=== PATIENT | male | born 1975 | race Caucasian/White ===

== ENCOUNTER 2016-10-28 18:29 | Emergency (ER) | payer SELFPAY ==
[2016-10-28] MEDS ORDERED: ASPIRIN 81 MG TABLET, CHEWABLE PO ONE (20:14)
[2016-10-28 20:21] LABS: ABSOLUTE BASOPHILS # (AUTO) 0.1 10^3/uL (0.0-0.2); ABSOLUTE EOSINOPHILS # (AUTO) 0.2 10^3/uL (0.0-0.6); ABSOLUTE LYMPHOCYTES (AUTO) 1.3 10^3/uL (0.5-4.7); ABSOLUTE MONOCYTES (AUTO) 0.5 10^3/uL (0.1-1.4); ABSOLUTE NEUT (AUTO) 7.5 10^3/uL (1.7-8.2); BASOPHILS % (AUTO) 0.9 % (0-2); EOSINOPHILS % (AUTO) 2.4 % (0-6); HEMATOCRIT 45.2 % (37.9-51.0); HEMOGLOBIN 15.5 g/dL (13.5-17.0); HGB HCT DIFFERENCE 1.3; LYMPHOCYTES % (AUTO) 13.6 % (13-45); MEAN CORPUSCULAR HEMOGLOBIN 31.4 pg (27.0-33.4); MEAN CORPUSCULAR HGB CONC 34.2 g/dL (32.0-36.0); MEAN CORPUSCULAR VOLUME 92 fl (80-97); MONOCYTES % (AUTO) 5.4 % (3-13); RED BLOOD COUNT 4.93 10^6/uL (4.35-5.55); SEGMENTED NEUTROPHILS % (AUTO) 77.7 % (42-78); WHITE BLOOD COUNT 9.6 10^3/uL (4.0-10.5)
[2016-10-28 20:27] LABS: ALANINE AMINOTRANSFERASE 47 U/L (21-72); ALBUMIN 4.3 g/dL (3.5-5.0); ALKALINE PHOSPHATASE 128 U/L (38-126); ANION GAP 12 (5-19); ASPARTATE AMINO TRANSFERASE 49 U/L (17-59); BILIRUBIN,DIRECT 0.5 mg/dL (0.0-0.4); BILIRUBIN,TOTAL 0.8 mg/dL (0.2-1.3); BLOOD UREA NITROGEN 7 mg/dL (7-20); CALCIUM 9.6 mg/dL (8.4-10.2); CARBON DIOXIDE 24 mmol/L (22-30); CHLORIDE 103 mmol/L (98-107); CREATINE KINASE 273 U/L (55-170); GLUCOSE 127 mg/dL (75-110); POTASSIUM 4.5 mmol/L (3.6-5.0); PROTHROMBIN TIME 12.3 SEC (11.4-15.4); SODIUM 139.1 mmol/L (137-145); TOTAL PROTEIN 7.8 g/dL (6.3-8.2)
[2016-10-28 20:39] LABS: CREATINE KINASE MB 3.03 ng/mL (<4.55)
--- NOTE | 2016-10-28 20:39 | RADIOLOGY REPORT (SQ) ---
EXAM DESCRIPTION: CHEST SINGLE VIEW COMPLETED DATE/TIME: 10/28/2016 8:28 pm REASON FOR STUDY: chest pain COMPARISON: 10/30/2006 EXAM PARAMETERS: NUMBER OF VIEWS: One view. TECHNIQUE: Single frontal radiographic view of the chest acquired. RADIATION DOSE: NA LIMITATIONS: None. FINDINGS: LUNGS AND PLEURA: No opacities, masses or pneumothorax. No pleural effusion. MEDIASTINUM AND HILAR STRUCTURES: No masses. Contour normal. HEART AND VASCULAR STRUCTURES: Heart normal in size. Normal vasculature. BONES: No acute findings. HARDWARE: None in the chest. OTHER: No other significant finding. IMPRESSION: NO ACUTE RADIOGRAPHIC FINDING IN THE CHEST. TECHNICAL DOCUMENTATION: JOB ID: [id number]
[2016-10-28 20:40] LABS: TROPONIN I < 0.012 ng/mL
[2016-10-28] MEDS ORDERED: KETOROLAC TROMETHAMINE INJ/PF 30 MG/1 ML SDV IV ONE (20:43)
[2016-10-28] MEDS ORDERED: ONDANSETRON HCL INJ/PF 4 MG/2 ML SDV IV ONE (20:44)
--- NOTE | 2016-10-28 20:45 | ER Document Report ---
ED Medical Screen (RME) - General Chief Complaint: Chest Pain Stated Complaint: ABDOMINAL PAIN Time Seen by Provider: 10/28/16 20:32 TRAVEL OUTSIDE OF THE U.S. IN LAST 30 DAYS: No - Related Data Allergies/Adverse Reactions: No Known Allergies Allergy (Verified 02/03/15 20:52) Past Medical History Past Surgical History: Reports: Hx Tonsillectomy Physical Exam - Vital signs Vitals: Pulse Resp BP 102 H 15 154/97 H 10/28/16 18:35 10/28/16 18:35 10/28/16 18:35 Course - Vital Signs Vital signs: Temp Pulse Resp BP Pulse Ox 102 H 12 148/88 H 99 10/28/16 18:35 10/28/16 20:01 10/28/16 20:01 10/28/16 20:01 - Laboratory Result Diagrams: 10/28/16 18:44 10/28/16 18:44 Laboratory results interpreted by me: 10/28/16 18:44 Glucose 127 H Direct Bilirubin 0.5 H Alkaline Phosphatase 128 H Creatine Kinase 273 H
--- NOTE | 2016-10-28 20:51 | ER Document Report ---
ED General - General Chief Complaint: Chest Pain Stated Complaint: ABDOMINAL PAIN Time Seen by Provider: 10/28/16 20:32 Notes: Patient says that he has been having pain in his left upper quadrant for the past 2-3 months. It periodically gets worse and it appears to patient that it is swollen. For the past couple of days, he is been having that pain. In addition, he has had some anterior chest pains that radiate down his left arm. He says he has had dry heaves. No diarrhea. Last bowel movement was last night. No blood seen. Denies any fevers. Has not had any abdominal surgeries. On no prescription medications. TRAVEL OUTSIDE OF THE [place] IN LAST 30 DAYS: No - Related Data Allergies/Adverse Reactions: No Known Allergies Allergy (Verified 02/03/15 20:52) Past Medical History - Social History Smoking Status: Current Every Day Smoker - Smokes about a pack of cigarettes a week. Frequency of alcohol use: Occasional Occupation: [employer] Family History: Reviewed & Not Pertinent - Past Medical History Cardiac Medical History: Denies: Hx Coronary Artery Disease, Hx Heart Attack Past Surgical History: Reports: Hx Tonsillectomy. Denies: Hx Abdominal Surgery Review of Systems - Review of Systems Notes: REVIEW OF SYSTEMS: CONSTITUTIONAL : Denies fever. EENT: Denies eye, ear, nose or mouth or throat pain or other symptoms. CARDIOVASCULAR: See HPI. RESPIRATORY: Denies cough, chest congestion, or shortness of breath. GASTROINTESTINAL: See HPI. GENITOURINARY: Denies difficulty or painful urinating, urinary frequency, blood in urine. MUSCULOSKELETAL: Denies back or neck pain. Denies joint pain or swelling. SKIN: Denies rash or skin lesions. NEUROLOGICAL: Denies LOC or altered mental status. Denies headache. Denies sensory loss or motor deficits. ALL OTHER SYSTEMS REVIEWED AND NEGATIVE. Physical Exam - Vital signs Vitals: Pulse Resp BP 102 H 15 154/97 H 10/28/16 18:35 10/28/16 18:35 10/28/16 18:35 - Notes Notes: PHYSICAL EXAMINATION: GENERAL: Well-appearing, in no acute distress, although he appears uncomfortable. Weighs approximately 340 pounds. HEAD: Atraumatic, normocephalic. EYES: Pupils equal round and reactive to light, extraocular movements intact. ENT: oropharynx clear without exudates. Moist mucous membranes. NECK: Normal range of motion, supple. LUNGS: Breath sounds clear and equal bilaterally. HEART: Regular rate and rhythm without murmurs. ABDOMEN: Morbidly obese with an extremely large abdomen. Patient says he swollen in the left upper quadrant, but I cannot visualize nor do I feel any swelling. He is exquisitely tender, however, in the left upper quadrant. Some guarding present, but no rebound. No masses felt. No bruits heard. BACK: No tenderness throughout entire back. EXTREMITIES: Normal range of motion without pain. NEUROLOGICAL: Normal speech, normal gait. Normal sensory, motor, and reflex exams. Awake, alert, and oriented x3. Cranial nerves normal. PSYCH: Normal mood, normal affect. SKIN: Warm, dry, no rashes. Course - Re-evaluation Re-evalutation: 10/28/16 23:46 Lab results all essentially normal. CT scan of the abdomen with oral and IV contrast show no abnormality except for a fatty liver. I discussed all these results with the patient and he says he just does not understand why he is having such pain. Denies being under stress or anxious or nervous or worried about anything. In spite of this, the patient has normal white cell count, normal chemistries and liver function studies, except for very minimal elevation of the alkaline phosphatase level. CT scan normal except for fatty liver. I pointed out to the patient that the fatty liver is due to his diet and his weight and he says that he does not eat very much and he cannot lose weight even though he has tried he cannot lose weight. We will put the patient on a trial of Bentyl 40 mg, 4 times a day as needed. Advised to return if his symptoms worsen or change or he develops serious new symptoms. - Vital Signs Vital signs: Temp Pulse Resp BP Pulse Ox 102 H 14 144/88 H 97 10/28/16 18:35 10/28/16 23:01 10/28/16 23:01 10/28/16 23:01 - Laboratory Result Diagrams: 10/28/16 18:44 10/28/16 18:44 Laboratory results interpreted by me: 10/28/16 18:44 Glucose 127 H Direct Bilirubin 0.5 H Alkaline Phosphatase 128 H Creatine Kinase 273 H - EKG Interpretation by Ma EKG shows normal: Sinus rhythm Rate: Normal Rhythm: NSR Additional EKG results interpreted by me: 10/28/16 20:52 EKG is normal. Discharge - Discharge Clinical Impression: Abdominal pain Qualifiers: Abdominal location: left upper quadrant Qualified Code(s): R10.12 - Left upper quadrant pain Condition: Stable Disposition: HOME, SELF-CARE Additional Instructions: ABDOMINAL PAIN: There are many causes of abdominal pain. Pain can mean a serious problem requiring surgery (such as appendicitis). It can also be an innocent problem that goes away on its own (such as a viral infection). Often, time must pass to determine the cause of pain. The physician does not feel that hospitalization is necessary, at present. Things may change within the next 24 hours. Call the doctor or come back for re- examination if any problems occur, such as: (1) Pain that becomes more severe, steady, or becomes concentrated in one specific area. Also, pain that is more severe with movement or coughing. (2) Vomiting that persists or becomes more frequent. (3) Blood in the vomitus, urine, or bowel movements. Blood in the stool may have a tarry or black appearance. (4) Shaking chills or fever greater than 100 degrees F. (5) The abdomen becomes more distended or swollen. (6) Bowel movements cease. (7) Failure to improve as expected. NORMAL EXAM AND WORKUP: At this time, your examination and workup show no significant abnormality. No significant abnormal physical findings are noted. All laboratory, EKG, and imaging (x-ray, CT scans, ultrasound) studies that were ordered show no significant abnormality. Although your examination and all studies that were ordered showed no significant abnormal finding, there are no examinations and no studies that are 100% accurate. There is always the possibility that some abnormality could exist and not be detected with physical examination or within the limits and capabilities of laboratory and other studies. You should return or follow up as you were instructed on your visit today for further evaluation if your symptoms do not resolve. TORADOL INJECTION: You have been given an injection of ketorolac tromethamine (Toradol). This is an excellent, safe drug for pain control. It also has potent antiinflammatory action. You should have significant pain relief within about one hour. Toradol is not addicting and is non-sedating. It does not interfere with driving or work. Call or return if you develop itching, hives, shortness of breath, or rash. ANTINAUSEA MEDICATION: You have been given a medication to suppress nausea and vomiting. This type of medication can be given as a shot, pill, or suppository. It will usually last for many hours. Pills and shots usually last six to eight hours, suppositories last about 12 hours. For the typical illness, only one or two doses of the medication may be necessary. Mild lightheadedness may occur. This type of medicine can cause drowsiness. Do not drive or operate dangerous machinery while under its influence. Do not mix with alcohol. See your doctor at once if you have muscle spasms or tightness, or uncontrollable motions (particularly of the neck, mouth, or jaw). Persistent vomiting or severe lightheadedness should also be evaluated by the physician. ANTISPASMODICS: You have been given a prescription for an antispasmodic medicine. This type of drug is used to decrease cramping and pain in the intestines. It is also used to decrease secretion of internal fluids (such as stomach acid in ulcer disease or pancreatic juice in pancreas disease). This medicine may cause drowsiness, especially with the first dose. Do not operate machinery or drive until all side effects have resolved. Do not combine with alcohol. Other common side effects include dry mouth and eyes. In older persons, antispasmodics can occasionally cause urinary retention, constipation, or trouble focusing the eyes. Glaucoma may be worsened by this medicine. FOLLOW-UP CARE: If you have been referred to a physician for follow-up care, call the physician s office for an appointment as you were instructed or within the next two days. If you experience worsening or a significant change in your symptoms, notify the physician immediately or return to the Emergency Department at any time for re-evaluation. Prescriptions: Dicyclomine HCl [Bentyl 20 mg Tablet] 40 mg PO QIDP PRN #60 tablet PRN Reason: Promethazine HCl [Phenergan 25 mg Tablet] 1 - 2 tab PO Q6H PRN #15 tablet PRN Reason: Forms: Return to Work
--- NOTE | 2016-10-28 23:29 | RADIOLOGY REPORT (SQ) ---
EXAM DESCRIPTION: CT ABD/PELVIS WITH IV ORAL COMPLETED DATE/TIME: 10/28/2016 11:20 pm REASON FOR STUDY: LUQ abdominal pain COMPARISON: None. TECHNIQUE: CT scan of the abdomen and pelvis performed using helical scanning technique with dynamic intravenous contrast injection. oral contrast. Images reviewed with lung, soft tissue, and bone wi ndows. Reconstructed coronal and sagittal MPR images reviewed. Delayed images for evaluation of the u rinary system also acquired. All images stored on PACS. All CT scanners at this facility use dose modulation, iterative reconstruction, and/or weight based d osing when appropriate to reduce radiation dose to as low as reasonably achievable (ALARA). [facility]: Dose Right [facility]: CareDose [facility]: Dose Right [facility]: Teradose 4D [facility]: BugSense CONTRAST TYPE AND DOSE: contrast/concentration: Isovue 370.00 mg/ml; Total Contrast Delivered: 100.0 ml; Total Saline Delivered: 70.0 ml RENAL FUNCTION: GFR > 60. RADIATION DOSE: . LIMITATIONS: None. FINDINGS: LOWER CHEST: No significant findings. No nodules or infiltrates. LIVER: Fatty liver. No focal masses. SPLEEN: Normal size. No focal lesions. PANCREAS: No masses. No significant calcifications. No adjacent inflammation or peripancreatic fluid collections. Pancreatic duct not dilated. GALLBLADDER: No identified stones by CT criteria. No inflammatory changes to suggest cholecystitis. ADRENAL GLANDS: No significant masses or asymmetry. RIGHT KIDNEY AND URETER: No solid masses. No significant calcifications. No hydronephrosis or hyd roureter. LEFT KIDNEY AND URETER: No solid masses. No significant calcifications. No hydronephrosis or hydr oureter. AORTA AND VESSELS: No aneurysm. No dissection. Renal arteries, SMA, celiac without stenosis. RETROPERITONEUM: No retroperitoneal adenopathy, hemorrhage or masses. BOWEL AND PERITONEAL CAVITY: No masses or inflammatory changes. No free fluid or peritoneal masses. APPENDIX: Not visualized. PELVIS: No mass. No free fluid. Normal bladder. ABDOMINAL WALL: No masses. No hernias. BONES: No significant or acute findings. OTHER: No other significant finding. IMPRESSION: Fatty liver. No acute findings. TECHNICAL DOCUMENTATION: JOB ID: [id number] Quality ID # [id number]: Final reports with documentation of one or more dose reduction techniques (e.g., Au tomated exposure control, adjustment of the mA and/or kV according to patient size, use of iterative reconstruction technique) 2010 [employer]- All Rights Reserved
[2016-10-28] MEDS ORDERED: DICYCLOMINE HCL 20 MG TABLET PO ONE (23:44)
[2016-10-29 00:03] VITALS: BP 146/88
--- NOTE | 2016-10-29 16:39 | EKG REPORT ---
SEVERITY:- NORMAL ECG - SINUS RHYTHM : Confirmed by: Charlie Odom 29-Oct-2016 16:37:59
== END 2016-10-29 00:04 | disposition home or self-care (01) ==
LOC: ER 18:29
DX: R10.12 Left upper quadrant pain (principal); R07.9 Chest pain, unspecified; M79.602 Pain in left arm; F17.210 Nicotine dependence, cigarettes, uncomplicated
CPT/HCPCS: 93005; 99285; 96374; 96375; 36415; 82553; 82550; 85025; 85610; 80053; 84484; 71010; 74177; 93010; J3490; J1885; J2405

== ENCOUNTER 2016-12-22 14:12 | Emergency (ER) | payer SELFPAY ==
[2016-12-22 14:23] VITALS: BP 174/98
[2016-12-22] MEDS ORDERED: NORMAL SALINE 1000 ML 1,000 ML IV ONE (14:36)
--- NOTE | 2016-12-22 14:36 | ER Document Report ---
ED General - General Chief Complaint: Jaw Pain Stated Complaint: MOUTH PAIN Time Seen by Provider: 12/22/16 14:28 Mode of Arrival: Ambulatory Information source: Patient Notes: Patient is a 41 year old male who presents with 2 week history of left upper jaw pain that has progressively gotten worse. He states that he has been on 2 different antibiotics (penicillin for 7 days and he is currently on day 9 of 10 clindamycin prescribed by his dentist) but he states he is feeling worse today. He states today he had hot flashes, nausea with no vomiting, lightheadedness. He states earlier this afternoon he passed out due to the pain. He believes the infection is still there. Denies any subjective fevers, facial swelling, facial redness, difficulty swallowing, difficulty breathing, vomiting or diarrhea. He states the dentist won't pull his broken tooth until the infection is cleared. TRAVEL OUTSIDE OF THE [place] IN LAST 30 DAYS: No - Related Data Allergies/Adverse Reactions: No Known Allergies Allergy (Verified 02/03/15 20:52) Past Medical History - General Information source: Patient - Social History Smoking Status: Current Every Day Smoker Family History: Reviewed & Not Pertinent - Past Medical History Cardiac Medical History: Denies: Hx Coronary Artery Disease, Hx Heart Attack Renal/ Medical History: Denies: Hx Peritoneal Dialysis Past Surgical History: Reports: Hx Tonsillectomy. Denies: Hx Abdominal Surgery Review of Systems - Review of Systems Constitutional: See HPI EENT: See HPI Cardiovascular: No symptoms reported Respiratory: No symptoms reported Gastrointestinal: No symptoms reported Genitourinary: No symptoms reported Male Genitourinary: No symptoms reported Musculoskeletal: No symptoms reported Skin: No symptoms reported Hematologic/Lymphatic: No symptoms reported Neurological/Psychological: No symptoms reported Physical Exam - Vital signs Vitals: Pulse BP Pulse Ox 84 174/98 H 98 12/22/16 14:22 12/22/16 14:22 12/22/16 14:22 Interpretation: Hypertensive - Notes Notes: PHYSICAL EXAM: CONSTITUTIONAL: Alert and oriented, well-appearing and in no acute distress. Appears uncomfortable. HENT: Normocephalic, atraumatic. No facial cellulitis or swelling. Oropharynx clear without erythema, tonsilar exudate or malocclusion. Trachea midline. Uvula midline. Moist mucous membranes. Edentulous at tooth #14 without obvious perigingival or perioral abscess. No gingival or buccal mucosal swelling. EYES: Pupils equal round and reactive to light, EOM intact. Sclera anicteric, conjunctiva are normal. No entrapment. NECK: supple without lymphadenopathy. No midline tenderness or paraspinous muscle spasms. No step-offs or deformities. ROM intact. HEART: Regular rate and rhythm without murmurs. LUNGS: CTAB and equal. No wheezes, rales or rhonchi. GI: Normactive bowel sounds. Nontender, non-distended. No organomegaly. no CVAT. EXTREMITIES: Normal range of motion, no pitting edema. No cyanosis. Cap Refill < 3 seconds. NEURO: Cranial nerves grossly intact. Normal sensory/motor exams. PSYCH: Normal mood, normal affect. SKIN: Warm and dry. Normal turgor. No rashes or lesions noted. Course - Re-evaluation Re-evalutation: 12/22/16 14:30 Patient seen and examined. No evidence of facial cellulitis/swelling, no perioral abscess or perigingival abscess. Will check labs and give fluids as well as IV pain medication. 12/22/16 15:43 Reviewed CBC which was unremarkable. Patient feeling slightly better after IVF. Advised that the pain is coming from the decay not necessarily infection. Will start augmentin for better coverage and advised patient must follow-up with the dentist. At this time, will discharge with return precautions and follow-up recommendations. Verbal discharge instructions given at the bedside and opportunity for questions given. Medication warnings reviewed. Patient is in agreement with this plan and has verbalized understanding of return precautions and the need for primary care follow-up in the next 24-72 hours. - Vital Signs Vital signs: Temp Pulse Resp BP Pulse Ox 84 174/98 H 98 12/22/16 14:22 12/22/16 14:22 12/22/16 14:22 - Laboratory Result Diagrams: 12/22/16 14:48 Laboratory results interpreted by me: 12/22/16 14:48 Lymphocytes % 11.9 L Discharge - Discharge Clinical Impression: Dental decay, Toothache Condition: Stable Disposition: HOME, SELF-CARE Additional Instructions: TOOTHACHE: Your pain is due to dental decay. The tooth must be repaired in order for you to feel better. You will, therefore, be referred to a dentist. We do not have dentists on the staff at [facility]. Severe swelling or drainage around a tooth usually means a dental abscess. This also requires evaluation and treatment by the dentist, but antibiotics may be prescribed while awaiting dental treatment. You should be rechecked immediately if you develop major swelling of the face, increasing pain, a lump in the jaw or gums, headache, difficulty swallowing, or fever. ORAL NARCOTIC MEDICATION: You have been given a prescription for pain control. This medication is a narcotic. It's best taken with food, as nausea can result if taken on an empty stomach. Don't operate machinery or drive within six hours of taking this medication. Do not combine this medicine with alcohol, or with any medication which can cause sedation (such as cold tablets or sleeping pills) unless you get permission from the physician. Narcotics tend to cause constipation. If possible, drink plenty of fluids and eat a diet high in fiber and fruits. Please be aware that prescription narcotics also have the potential for abuse. People become addicted to these medications because of the general sense of wellbeing that they induce. This feeling along with a significant reduction in tension, anxiety, and aggression provides a stimulating seductive quality to these drugs. Once your pain is under control, we encourage you to discard your unused narcotics. FOLLOW-UP CARE: You have been referred for follow-up care to the dentists listed below. Call the dentists office for an appointment as you were instructed or within the next two days. If you experience worsening or a significant change in your symptoms, notify the physician immediately or return to the Emergency Department at any time for re-evaluation. [facility] [address], [place] Monday mornings, by appointment [facility] [address] [place] [address] [facility] [address] [facility] [address] [facility] [address] [facility] [address] [facility] [facility]. [email or web address] [facility] [address] [place] [address] Monday- 8:00am to 5:00 pm Will see patients from other [facility]. Charges based on income and family size and accepts Medicare, Medicaid, and Insurances Will pull molars [facility], [facility]. [id number] Hours of Operation 8:00 am - 4:30 pm weekdays The following dental offices accept Medicaid: [facility] [address]. [address] Dr[address] Riley Dr. Yeager Dr. Khanna Stefan White, Anant, and Richi oral surgery Dr. Thrasher ([place]) Dr. Rosario ([place]) [facility] Drs. Manjarrez ([place]) Dr. Acevedo ([place]) [facility] Dr. Garcia ([place]) Drs. Cantu and ([place]) Medicaid Care Line Prescriptions: Amox Tr/Potassium Clavulanate [Augmentin 875-125 Tablet] 1 tab PO BID 10 Days tablet Hydrocodone/Acetaminophen [Vicodin 5-300 mg Tablet] 1 tab PO ASDIR PRN #15 tab PRN Reason: Forms: Elevated Blood Pressure
[2016-12-22] MEDS ORDERED: KETOROLAC TROMETHAMINE INJ/PF 30 MG/1 ML SDV IV ONE (14:37)
[2016-12-22] MEDS ORDERED: LIDOCAINE 2% URO-JET 5 ML KIT MM ONE (14:38)
[2016-12-22 15:00] LABS: ABSOLUTE BASOPHILS # (AUTO) 0.1 10^3/uL (0.0-0.2); ABSOLUTE EOSINOPHILS # (AUTO) 0.2 10^3/uL (0.0-0.6); ABSOLUTE MONOCYTES (AUTO) 0.6 10^3/uL (0.1-1.4); ABSOLUTE NEUT (AUTO) 6.5 10^3/uL (1.7-8.2); BASOPHILS % (AUTO) 1.3 % (0-2); EOSINOPHILS % (AUTO) 2.1 % (0-6); HEMATOCRIT 45.1 % (37.9-51.0); HEMOGLOBIN 15.6 g/dL (13.5-17.0); HGB HCT DIFFERENCE 1.7; LYMPHOCYTES % (AUTO) 11.9 % (13-45); MEAN CORPUSCULAR HGB CONC 34.7 g/dL (32.0-36.0); MEAN CORPUSCULAR VOLUME 89 fl (80-97); MONOCYTES % (AUTO) 6.9 % (3-13); RED BLOOD COUNT 5.05 10^6/uL (4.35-5.55); RED CELL DISTRIBUTION WIDTH 13.5 % (11.5-14.0); SEGMENTED NEUTROPHILS % (AUTO) 77.8 % (42-78); WHITE BLOOD COUNT 8.4 10^3/uL (4.0-10.5)
== END 2016-12-22 15:55 | disposition home or self-care (01) ==
LOC: ER 14:12
DX: K02.9 Dental caries, unspecified (principal); K08.9 Disorder of teeth and supporting structures, unspecified; R68.84 Jaw pain; F17.200 Nicotine dependence, unspecified, uncomplicated
CPT/HCPCS: 99283; 96361; 96374; 36415; 85025; J1885; J7030; J3490

== ENCOUNTER 2017-01-05 05:54 | Emergency (ER) | payer SELFPAY ==
--- NOTE | 2017-01-05 06:58 | ER Document Report ---
ED General - General Chief Complaint: Headache Stated Complaint: BODY PAIN Time Seen by Provider: 01/05/17 06:06 Mode of Arrival: Ambulatory Information source: Patient, Relative Notes: 41-year-old male presents with complaints of headache face pain of approximately 1 month duration which has since worsened. states patient is acting like a child crying from the pain. TRAVEL OUTSIDE OF THE [place] IN LAST 30 DAYS: No - HPI Onset: Other Onset/Duration: Persistent Quality of pain: Achy Severity: Mild Pain Level: 1 Associated symptoms: Headache, Other Exacerbated by: Denies Relieved by: Denies Similar symptoms previously: Yes Recently seen / treated by doctor: Yes - Related Data Allergies/Adverse Reactions: No Known Allergies Allergy (Verified 02/03/15 20:52) Past Medical History - Social History Smoking Status: Current Every Day Smoker Cigarette use (# per day): Yes Chew tobacco use (# tins/day): No Smoking Education Provided: No Frequency of alcohol use: Social Drug Abuse: None Family History: Reviewed & Not Pertinent Patient has suicidal ideation: No Patient has homicidal ideation: No - Past Medical History Cardiac Medical History: Denies: Hx Coronary Artery Disease, Hx Heart Attack Renal/ Medical History: Denies: Hx Peritoneal Dialysis Past Surgical History: Reports: Hx Tonsillectomy. Denies: Hx Abdominal Surgery Review of Systems - Review of Systems Notes: REVIEW OF SYSTEMS: CONSTITUTIONAL : Denies fever, chills, or sweats. Denies recent illness. EENT: admits to facial pain on touch CARDIOVASCULAR: Denies chest pain. Denies palpitations or racing or irregular heart beat. Denies ankle edema. RESPIRATORY: Denies cough, cold, or chest congestion. Denies shortness of breath, difficulty breathing, or wheezing. GASTROINTESTINAL: Denies abdominal pain or distention. Denies nausea, vomiting , or diarrhea. Denies blood in vomitus, stools, or per rectum. Denies black, tarry stools. Denies constipation. GENITOURINARY: Denies difficulty urinating, painful urination, burning, frequency, blood in urine, or discharge. MUSCULOSKELETAL: Denies back or neck pain or stiffness. Denies joint pain or swelling. SKIN: Denies rash, lesions or sores. HEMATOLOGIC : Denies easy bruising or bleeding. LYMPHATIC: Denies swollen, enlarged glands. NEUROLOGICAL: admits to confusion , headache PSYCHIATRIC: admits to tearful ALL OTHER SYSTEMS REVIEWED AND NEGATIVE. Dictation was performed using [employer] voice recognition software PHYSICAL EXAMINATION: GENERAL: Well-appearing, well-nourished and in no acute distress. HEAD: Atraumatic, normocephalic. EYES: Pupils equal round and reactive to light, extraocular movements intact, sclera anicteric, conjunctiva are normal. ENT: Nares patent, oropharynx clear without exudates. Moist mucous membranes. NECK: Normal range of motion, supple without lymphadenopathy LUNGS: Breath sounds clear to auscultation bilaterally and equal. No wheezes rales or rhonchi. HEART: Regular rate and rhythm without murmurs ABDOMEN: Soft, nontender, nondistended abdomen. No guarding, no rebound. No masses appreciated. Musculoskeletal: Normal range of motion, no pitting or edema. No cyanosis. NEUROLOGICAL: Cranial nerves grossly intact. Normal speech, normal gait. Normal sensory, motor exams , pt states he is confused, doesnt know where he is PSYCH: tearful SKIN:tenderness on touch of the face Physical Exam - Vital signs Vitals: Resp Pulse Ox 19 100 01/05/17 05:58 01/05/17 05:58 Course - Re-evaluation Re-evalutation: 01/05/17 07:37 Patient's presentation is a bit perplexing, unsure if there is underlying psychiatric issue but significant other does state fevers and intermittent confusion with this headache 01/05/17 11:07 pt has tenderness on touch of the face, this ould be concerning for trigeminal neuralgia Patient is also noted to be which would explain the confusion Family member has been made aware After performing a Medical Screening Examination, I estimate there is LOW risk for INTRACRANIAL HEMORRHAGE, ISCHEMIC CVA, MALIGNANT DYSRHYTHMIA, ACUTE CORONARY SYNDROME, MENINGITIS, PULMONARY EMBOLISM, or SEPSIS thus I consider the discharge disposition reasonable. I have reevaluated this patient multiple times and no significant life threatening changes are noted. The patient and I have discussed the diagnosis and risks, and we agree with discharging home with close follow-up with the understanding that symptoms and presentations can change. We also discussed returning to the Emergency Department immediately if new or worsening symptoms occur. We have discussed the symptoms which are most concerning (e.g., changing or worsening pain, weakness, vomiting, fever) that necessitate immediate return. - Vital Signs Vital signs: Temp Pulse Resp BP Pulse Ox 18 173/98 H 94 01/05/17 09:33 01/05/17 09:33 01/05/17 09:33 - Laboratory Result Diagrams: 01/05/17 06:20 01/05/17 06:20 Laboratory results interpreted by me: 01/05/17 01/05/17 01/05/17 06:20 06:20 07:40 Direct Bilirubin 0.5 H AST 122 H ALT 87 H Urine Ketones TRACE H Serum Alcohol 312 H* - Diagnostic Test Radiology reviewed: Image reviewed, Reports reviewed Discharge - Discharge Clinical Impression: Trigeminal neuralgia of left side of face Alcohol intoxication Qualifiers: Complication of substance-induced condition: uncomplicated Qualified Code(s): F10.920 - Alcohol use, unspecified with intoxication, uncomplicated Condition: Stable Disposition: HOME, SELF-CARE Instructions: Trigeminal Neuralgia ([facility]) Prescriptions: Carbamazepine [Carbamazepine ER] 200 mg PO BID #30 cpmp.12hr Referrals: KWAME RICHARDSON MD [Primary Care Provider] - Follow up as needed LAM OVIEDO MD [ACTIVE STAFF] - Follow up tomorrow
[2017-01-05] MEDS ORDERED: HALOPERIDOL LACTATE INJ 5 MG/1 ML VIAL IV ONE (06:59)
[2017-01-05] MEDS ORDERED: DIPHENHYDRAMINE HCL 50 MG/ML VIAL IV ONE (06:59)
[2017-01-05 07:14] LABS: ABSOLUTE BASOPHILS # (AUTO) 0.1 10^3/uL (0.0-0.2); ABSOLUTE EOSINOPHILS # (AUTO) 0.2 10^3/uL (0.0-0.6); ABSOLUTE LYMPHOCYTES (AUTO) 1.5 10^3/uL (0.5-4.7); ABSOLUTE MONOCYTES (AUTO) 0.4 10^3/uL (0.1-1.4); ABSOLUTE NEUT (AUTO) 3.5 10^3/uL (1.7-8.2); EOSINOPHILS % (AUTO) 2.7 % (0-6); HEMATOCRIT 47.3 % (37.9-51.0); HEMOGLOBIN 16.5 g/dL (13.5-17.0); HGB HCT DIFFERENCE 2.2; LYMPHOCYTES % (AUTO) 27.4 % (13-45); MEAN CORPUSCULAR HEMOGLOBIN 31.4 pg (27.0-33.4); MEAN CORPUSCULAR VOLUME 90 fl (80-97); MONOCYTES % (AUTO) 6.7 % (3-13); RED BLOOD COUNT 5.26 10^6/uL (4.35-5.55); RED CELL DISTRIBUTION WIDTH 13.7 % (11.5-14.0); SEGMENTED NEUTROPHILS % (AUTO) 62.2 % (42-78); WHITE BLOOD COUNT 5.6 10^3/uL (4.0-10.5)
[2017-01-05 07:36] LABS: ALANINE AMINOTRANSFERASE 87 U/L (21-72); ALBUMIN 4.4 g/dL (3.5-5.0); ALKALINE PHOSPHATASE 98 U/L (38-126); ANION GAP 16 (5-19); ASPARTATE AMINO TRANSFERASE 122 U/L (17-59); BILIRUBIN,DIRECT 0.5 mg/dL (0.0-0.4); BILIRUBIN,TOTAL 0.6 mg/dL (0.2-1.3); BLOOD UREA NITROGEN 9 mg/dL (7-20); CALCIUM 9.1 mg/dL (8.4-10.2); CARBON DIOXIDE 27 mmol/L (22-30); CHLORIDE 102 mmol/L (98-107); CREATININE RESULT 0.91 mg/dL (0.52-1.25); GLUCOSE 100 mg/dL (75-110); POTASSIUM 4.3 mmol/L (3.6-5.0); SODIUM 144.6 mmol/L (137-145); TOTAL PROTEIN 7.6 g/dL (6.3-8.2)
[2017-01-05 07:56] LABS: APPEARANCE,URINE CLEAR; BILIRUBIN,URINE NEGATIVE (NEGATIVE); GLUCOSE, URINE NEGATIVE (NEGATIVE); KETONES,URINE TRACE mg/dL (NEGATIVE); LEUKOCYTE ESTERASE,URINE NEGATIVE (NEGATIVE); NITRITE,URINE NEGATIVE (NEGATIVE); PROTEIN,URINE NEGATIVE (NEGATIVE); URINE SPECIFIC GRAVITY 1.013; UROBILINOGEN,URINE NEGATIVE mg/dL (<2.0)
--- NOTE | 2017-01-05 08:52 | RADIOLOGY REPORT (SQ) ---
EXAM DESCRIPTION: CT FACIAL AREA WITH COMPLETED DATE/TIME: 01/05/2017 8:10 am REASON FOR STUDY: facial swelling, headache COMPARISON: CT angio brain same date TECHNIQUE: Post contrast images through the facial bones and orbits windowed for bone and soft tissu e. Additional coronal and sagittal reconstructed images reviewed. All images stored on PACS. All CT scanners at this facility use dose modulation, iterative reconstruction, and/or weight based d osing when appropriate to reduce radiation dose to as low as reasonably achievable (ALARA). [facility]: Dose Right [facility]: CareDose [facility]: Dose Right [facility]: Teradose 4D [facility]: [employer] CONTRAST TYPE AND DOSE: 70 mL of Isovue 370- low osmolar. RENAL FUNCTION: Creatinine 0.91 RADIATION DOSE: . LIMITATIONS: None. FINDINGS: FACIAL BONES: No fracture or bone lesion. ORBITS: Intact. No fracture. Symmetric intact globes and retroorbital soft tissues. PARANASAL SINUSES: Small left mucous or serous retention cyst. No significant mucosal thickening, mass or fluid. No nasal polyps. Maxillary sinus outlets are patent. SOFT TISSUES: No mass or edema. No abnormal enhancement. INFERIOR BRAIN: Limited view. No acute findings. OTHER: Very mild right nasal septal deviation IMPRESSION: NO ACUTE FINDINGS. TECHNICAL DOCUMENTATION: JOB ID: [id number] Quality ID # [id number]: Final reports with documentation of one or more dose reduction techniques (e.g., Au tomated exposure control, adjustment of the mA and/or kV according to patient size, use of iterative reconstruction technique) 2010 [email or web address]- All Rights Reserved
--- NOTE | 2017-01-05 08:57 | RADIOLOGY REPORT (SQ) ---
EXAM DESCRIPTION: CTA HEAD COMPLETED DATE/TIME: 01/05/2017 8:10 am REASON FOR STUDY: facial swelling, headache COMPARISON: CT facial same date TECHNIQUE: Post IV contrast scanning, thin section axial imaging through the brain to evaluate the a rterial structures. Source and MIP images are saved and reviewed on PACS. Advanced 3D imaging as volume-rendering, MIPs, SSD performed? yes All CT scanners at this facility use dose modulation, iterative reconstruction, and/or weight based d osing when appropriate to reduce radiation dose to as low as reasonably achievable (ALARA). [facility]: Dose Right [facility]: CareDose [facility]: Dose Right [facility]: Teradose 4D [facility]: [employer] CONTRAST TYPE AND DOSE: contrast/concentration: Isovue 370.00 mg/ml; Total Contrast Delivered: 70.0 ml; Total Saline Delivered: 75.0 ml RENAL FUNCTION: Creatinine 0.91 LIMITATIONS: Mild motion artifact FINDINGS: [place]: The anterior, middle, posterior cerebral arteries are all patent. No ev idence of aneurysm or focal stenosis. POSTERIOR CIRCULATION: The distal vertebral arteries are patent as is the basilar artery. No aneurysm . BRAIN: No gross enhancing lesions as visualized. The superior cerebral hemispheres are not included in the field of view. BONES: Intact as visualized. SINUSES: Small mucous or serous retention cyst floor left maxillary sinus. Mild rightward nasal sept al deviation. OTHER: Results discussed with Dr. Natarajan. IMPRESSION: NO CTA EVIDENCE OF STENOSIS OR ANEURYSM OF THE [place]. TECHNICAL DOCUMENTATION: JOB ID: [id number] Quality ID # [id number]: Final reports with documentation of one or more dose reduction techniques (e.g., Au tomated exposure control, adjustment of the mA and/or kV according to patient size, use of iterative reconstruction technique) 2010 [employer] All Rights Reserved
[2017-01-05 09:03] LABS: URINE BARBITURATES SCREEN NEGATIVE; URINE METHADONE SCREEN NEGATIVE; URINE OPIATES LOW NEGATIVE; URINE PHENCYCLIDINE SCREEN NEGATIVE
[2017-01-05 12:20] VITALS: BP 135/87
--- NOTE | 2017-01-05 20:24 | EKG REPORT ---
SEVERITY:- NORMAL ECG - SINUS RHYTHM : Confirmed by: Katie Larson MD 05-Jan-2017 20:23:19
== END 2017-01-05 12:16 | disposition home or self-care (01) ==
LOC: ER 05:54
DX: G50.0 Trigeminal neuralgia (principal); F10.920 Alcohol use, unspecified with intoxication, uncomplicated; R51 Headache; M79.1 Myalgia; F17.210 Nicotine dependence, cigarettes, uncomplicated
CPT/HCPCS: 93005; 99284; 51701; 96374; 96375; 36415; 80307 ×2; 83690; 85025; 80053; 81001; 70496; 70487; 93010; J1200; J1630

== ENCOUNTER 2017-08-21 02:26 | Emergency (ER) | payer SELFPAY ==
[2017-08-21] MEDS ORDERED: ONDANSETRON HCL INJ/PF 4 MG/2 ML SDV IV ONE (02:48)
[2017-08-21] MEDS ORDERED: MORPHINE SULFATE 10 MG/ML INJ IV ONE ×2 (02:49→04:26)
[2017-08-21] MEDS ORDERED: NORMAL SALINE 1000 ML 1,000 ML IV ONE (02:49)
--- NOTE | 2017-08-21 02:52 | ER Document Report ---
ED General - General Chief Complaint: Abdominal Pain Stated Complaint: FLANK PAIN Time Seen by Provider: 08/21/17 02:41 Notes: Patient is a 41-year-old male presents with complaint of pain radiates from his bladder and up his left flank and into his back. He says he has had foul- smelling urine and dysuria. Symptoms have been ongoing for 2 weeks. On he went to [facility] and was diagnosed with UTI and placed on Keflex. He says he feels as if he has got worse and today has been vomiting unable to hold anything down. Said they did do a CT scan at [facility] did not see any evidence of any complications such as kidney stone. He denies any previous history of UTIs. He has not been sexually active in the last year. He denies any discharge from his penis. He is circumcised. No previous history of prostatitis. TRAVEL OUTSIDE OF THE [place] IN LAST 30 DAYS: No - Related Data Allergies/Adverse Reactions: No Known Allergies Allergy (Verified 02/03/15 20:52) Past Medical History - Social History Smoking Status: Never Smoker Frequency of alcohol use: None Drug Abuse: None Family History: Reviewed & Not Pertinent - Past Medical History Cardiac Medical History: Denies: Hx Coronary Artery Disease, Hx Heart Attack Renal/ Medical History: Denies: Hx Peritoneal Dialysis Past Surgical History: Reports: Hx Tonsillectomy. Denies: Hx Abdominal Surgery Review of Systems - Review of Systems Notes: My Normal Review Basic REVIEW OF SYSTEMS: CONSTITUTIONAL : Denies fever, chills, or sweats. Denies recent illness. CARDIOVASCULAR: Denies chest pain. RESPIRATORY: Denies cough, cold, or chest congestion. Denies shortness of breath, difficulty breathing, or wheezing. GASTROINTESTINAL: Left-sided abdominal pain. Vomiting GENITOURINARY: Dysuria. Foul-smelling urine. MUSCULOSKELETAL: Denies neck or back pain or joint pain or swelling. SKIN: Denies rash or skin lesions. NEUROLOGICAL: Denies altered mental status or loss of consciousness. Denies headache. Denies weakness or paralysis or loss of use of either side. Denies problems with gait or speech. Denies sensory or motor loss. ALL OTHER SYSTEMS REVIEWED AND NEGATIVE. Physical Exam - Vital signs Vitals: Temp Pulse Resp BP Pulse Ox 98.0 F 89 18 161/111 H 99 08/21/17 02:31 08/21/17 02:31 08/21/17 02:31 08/21/17 02:31 08/21/17 02:31 - Notes Notes: General Appearance: Well nourished, alert, cooperative, no acute distress, moderate obvious discomfort. Vitals: reviewed, See vital signs table Eyes: PERRL, EOMI, Conjuctiva clear Mouth: No decreasd moisture Lungs: No wheezing, No rales, No rhonci, No accessory muscle use, good air exchange bilaterally. Heart: Normal rate, Regular rythm, No murmur, no rub Abdomen: Normal BS, soft, No rigidity, mild to moderate left-sided and suprapubic abdominal tenderness to palpation, Extremities: strength 5/5 in all extremities, good pulses in all extremities, no swelling or tenderness in the extremities, no edema. Skin: warm, dry, appropriate color, no rash Neuro: speech clear, oriented x 3, normal affect, responds appropriately to questions. Course - Re-evaluation Re-evalutation: 08/23/17 04:56 Patient's urinalysis is now clear and therefore it appears that the Keflex is actually working. He still a lot of residual pain. He said he did have a CT scan at [facility] but said he was not told that he had a stone. His pain was still somewhat reproducible on the left side and left flank therefore repeat scan make sure he did not have an actual developing diverticulitis pain that he did have some diarrhea earlier in conjunction with the symptoms. CT scan shows no evidence of diverticulitis or kidney stone. I would expect that his bacteria that he had Achilles would be more likely caused by something such as prostatitis. This would be much more expected for him. I do not suspect an STD as patient says he has not been sexually active for almost a year. He has had no abnormal discharge from his penis. Denies any signs of infection on genital examination. I will extend the patient's antibiotics to cover for 2 weeks being feel prostatitis is more likely cause. We will give him some pain medicine. I encourage him return to ER if his intractable worsening pain, fevers, or feels unwell. Patient agrees with plan and was discharged home. Dictation of this chart was performed using voice recognition software; therefore, there may be some unintended grammatical errors. - Vital Signs Vital signs: Temp Pulse Resp BP Pulse Ox 97.6 F 80 18 150/93 H 96 08/21/17 06:37 08/21/17 06:37 08/21/17 06:37 08/21/17 06:37 08/21/17 06:37 - Laboratory Result Diagrams: 08/21/17 03:20 08/21/17 03:20 Laboratory results interpreted by me: 08/21/17 08/21/17 08/21/17 03:20 03:20 03:20 MCV 99 H MCH 34.0 H BUN 5 L Glucose 126 H Direct Bilirubin 0.5 H AST 77 H Urine Urobilinogen 4.0 H Discharge - Discharge Clinical Impression: Flank pain Condition: Good Disposition: HOME, SELF-CARE Instructions: Oral Narcotic Medication ([facility]) Additional Instructions: Please return to the ER immediately if you develop worsening pain, fevers, vomiting, or feel unwell. Please take a total course of 14 days of the antibiotic. Please follow up with a doctor in 3-4 days. Return to the ER for reevaluation if you can not follow up with a doctor in the community. Prescriptions: Cephalexin Monohydrate [Keflex 500 mg Capsule] 500 mg PO Q6H 7 Days capsule Hydrocodone/Acetaminophen [Zalma 5-325 mg Tablet] 1 tab PO Q4 PRN #10 tablet PRN Reason: For Breakthrough Pain Ondansetron [Zofran Odt 4 mg Tablet] 1 tab PO Q4H PRN #15 tab.rapdis PRN Reason: For Nausea/Vomiting Referrals: KWAME RICHARDSON MD [PEDIATRICS] - Follow up in 3-5 days
[2017-08-21 03:34] LABS: ABSOLUTE BASOPHILS # (AUTO) 0.1 10^3/uL (0.0-0.2); ABSOLUTE EOSINOPHILS # (AUTO) 0.3 10^3/uL (0.0-0.6); ABSOLUTE LYMPHOCYTES (AUTO) 1.6 10^3/uL (0.5-4.7); ABSOLUTE MONOCYTES (AUTO) 0.6 10^3/uL (0.1-1.4); ABSOLUTE NEUT (AUTO) 7.6 10^3/uL (1.7-8.2); BASOPHILS % (AUTO) 1.2 % (0-2); EOSINOPHILS % (AUTO) 2.5 % (0-6); HEMATOCRIT 44.5 % (37.9-51.0); HEMOGLOBIN 15.3 g/dL (13.5-17.0); LYMPHOCYTES % (AUTO) 16.1 % (13-45); MEAN CORPUSCULAR HGB CONC 34.4 g/dL (32.0-36.0); MEAN CORPUSCULAR VOLUME 99 fl (80-97); MONOCYTES % (AUTO) 5.9 % (3-13); PLATELET COUNT 263 10^3/uL (150-450); RED BLOOD COUNT 4.49 10^6/uL (4.35-5.55); RED CELL DISTRIBUTION WIDTH 13.9 % (11.5-14.0); SEGMENTED NEUTROPHILS % (AUTO) 74.3 % (42-78); TOTAL CELLS COUNTED % (AUTO) 100 %; WHITE BLOOD COUNT 10.2 10^3/uL (4.0-10.5)
[2017-08-21 03:46] LABS: ALANINE AMINOTRANSFERASE 41 U/L (21-72); ALBUMIN 3.6 g/dL (3.5-5.0); ALKALINE PHOSPHATASE 119 U/L (38-126); ANION GAP 10 (5-19); ASPARTATE AMINO TRANSFERASE 77 U/L (17-59); BILIRUBIN,DIRECT 0.5 mg/dL (0.0-0.4); BILIRUBIN,TOTAL 0.8 mg/dL (0.2-1.3); BLOOD UREA NITROGEN 5 mg/dL (7-20); CALCIUM 9.1 mg/dL (8.4-10.2); CARBON DIOXIDE 30 mmol/L (22-30); CHLORIDE 100 mmol/L (98-107); GLUCOSE 126 mg/dL (75-110); POTASSIUM 3.9 mmol/L (3.6-5.0); SODIUM 139.7 mmol/L (137-145)
[2017-08-21 03:54] LABS: APPEARANCE,URINE CLEAR; BILIRUBIN,URINE NEGATIVE (NEGATIVE); COLOR,URINE YELLOW; GLUCOSE, URINE NEGATIVE (NEGATIVE); KETONES,URINE NEGATIVE (NEGATIVE); LEUKOCYTE ESTERASE,URINE NEGATIVE (NEGATIVE); NITRITE,URINE NEGATIVE (NEGATIVE); PROTEIN,URINE NEGATIVE (NEGATIVE); URINE SPECIFIC GRAVITY 1.012
--- NOTE | 2017-08-21 05:10 | RADIOLOGY REPORT (SQ) ---
EXAM DESCRIPTION: CT ABDOMEN AND PELVIS WITHOUT CONTRAST CLINICAL HISTORY: left flank and left sided abdominal pain COMPARISON: None Available. TECHNIQUE: CT of the abdomen and pelvis without IV contrast. Evaluation of the solid organs and vasculature is suboptimal due to lack of IV contrast. DLP: 1516.78 mGy-cm FINDINGS: Lung Bases: The visualized lung bases are clear. Bones: No destructive bone lesions identified. Abdomen: Liver: The liver has normal size and decreased density. Gallbladder: No calcified gallstones. Spleen, Pancreas, and Adrenal Glands: The spleen, pancreas, and adrenal glands are unremarkable. Kidneys: The kidneys have normal size and contour without evidence of hydronephrosis. No obstructing ureteral calculi. Vasculature: The aorta and IVC have normal caliber and position. Stomach: The stomach and duodenum have normal course. Other: No free intraperitoneal air. No free fluid or lymphadenopathy. Pelvis: Bladder: Urinary bladder is unremarkable. Bowel: Scattered diverticula of the colon without pericolic fat stranding. Appendix: The appendix is not definitely identified. No secondary signs of acute appendicitis. Pelvis: Prostate is not enlarged. IMPRESSION: 1. No acute inflammatory or obstructive process identified. 2. Diverticulosis without evidence of acute diverticulitis. 3. Hepatic steatosis. This exam was performed according to our departmental dose-optimization program, which includes automated exposure control, adjustment of the mA and/or kV according to patient size and/or use of iterative reconstruction technique.
[2017-08-21] MEDS ORDERED: HYDROCODONE/ACETAMINOPHEN 5-325 MG (6 TAB/ER DISP) PO PRN (06:04)
[2017-08-21] MEDS ORDERED: ONDANSETRON ODT 4 MG TAB (6 TAB/ER DISP) PO PRN (06:05)
[2017-08-21 06:38] VITALS: BP 150/93
== END 2017-08-21 06:56 | disposition home or self-care (01) ==
LOC: ER 02:26
DX: R10.9 Unspecified abdominal pain (principal); M54.9 Dorsalgia, unspecified; R30.0 Dysuria
CPT/HCPCS: 96376; 99284; 96361; 96374; 96375; 36415; 87086; 85025; 80053; 81001; 74176; J2270; J2405; J7030

== ENCOUNTER 2017-09-04 03:05 | Emergency (ER) | payer SELFPAY ==
[2017-09-04] MEDS ORDERED: METOCLOPRAMIDE HCL INJ/PF 10 MG/2 ML SDV IV ONE (03:49)
[2017-09-04] MEDS ORDERED: DIPHENHYDRAMINE HCL 50 MG/ML VIAL IV ONE ×2 (03:49→04:53)
[2017-09-04] MEDS ORDERED: NORMAL SALINE 1000 ML 1,000 ML IV ONE (03:49)
[2017-09-04 03:59] LABS: ABSOLUTE EOSINOPHILS # (AUTO) 0.1 10^3/uL (0.0-0.6); ABSOLUTE LYMPHOCYTES (AUTO) 1.1 10^3/uL (0.5-4.7); ABSOLUTE MONOCYTES (AUTO) 0.5 10^3/uL (0.1-1.4); ABSOLUTE NEUT (AUTO) 3.8 10^3/uL (1.7-8.2); BASOPHILS % (AUTO) 0.4 % (0-2); EOSINOPHILS % (AUTO) 2.4 % (0-6); HEMATOCRIT 42.9 % (37.9-51.0); MEAN CORPUSCULAR HEMOGLOBIN 34.2 pg (27.0-33.4); MEAN CORPUSCULAR VOLUME 98 fl (80-97); MONOCYTES % (AUTO) 9.1 % (3-13); PLATELET COUNT 238 10^3/uL (150-450); RED BLOOD COUNT 4.39 10^6/uL (4.35-5.55); RED CELL DISTRIBUTION WIDTH 13.7 % (11.5-14.0); SEGMENTED NEUTROPHILS % (AUTO) 68.1 % (42-78); TOTAL CELLS COUNTED % (AUTO) 100 %; WHITE BLOOD COUNT 5.6 10^3/uL (4.0-10.5)
--- NOTE | 2017-09-04 04:05 | ER Document Report ---
ED General - General Chief Complaint: Headache Stated Complaint: HEADACHE Time Seen by Provider: 09/04/17 03:28 Notes: The patient is a 42-year-old male, past medical history hypertension, migraines , presents with 3 days of a posterior headache. He is also having pain and swelling around his neck and intermittent chest pain. Patient has had this headache in the past, but it usually resolves on its own. He denies any injuries, shortness of breath, fevers, coughing, leg swelling, nausea, vomiting , weakness, numbness, tingling or blurry vision. TRAVEL OUTSIDE OF THE [place] IN LAST 30 DAYS: No - Related Data Allergies/Adverse Reactions: No Known Allergies Allergy (Verified 09/04/17 03:08) Past Medical History - General Information source: Patient - Social History Smoking Status: Unknown if Ever Smoked Family History: Reviewed & Not Pertinent Patient has suicidal ideation: No Patient has homicidal ideation: No - Past Medical History Cardiac Medical History: Denies: Hx Coronary Artery Disease, Hx Heart Attack Renal/ Medical History: Denies: Hx Peritoneal Dialysis Past Surgical History: Reports: Hx Tonsillectomy. Denies: Hx Abdominal Surgery Review of Systems - Review of Systems Notes: REVIEW OF SYSTEMS: CONSTITUTIONAL: -fevers, -chills EENT: -eye pain, -difficulty swallowing, -nasal congestion CARDIOVASCULAR: +chest pain, -syncope. RESPIRATORY: -cough, -SOB GASTROINTESTINAL: -abdominal pain, -nausea, -vomiting, -diarrhea GENITOURINARY: -dysuria, -hematuria MUSCULOSKELETAL: +upper back pain, +neck pain SKIN: -rash or skin lesions. HEMATOLOGIC: -easy bruising or bleeding. LYMPHATIC: -swollen, enlarged glands. NEUROLOGICAL: -altered mental status or loss of consciousness, +headache, - neurologic symptoms PSYCHIATRIC: -anxiety, -depression. ALL OTHER SYSTEMS REVIEWED AND NEGATIVE. Physical Exam - Vital signs Vitals: Temp Pulse Resp BP Pulse Ox 97.7 F 90 12 185/106 H 97 09/04/17 03:10 09/04/17 03:10 09/04/17 03:10 09/04/17 03:10 09/04/17 03:10 - Notes Notes: PHYSICAL EXAMINATION: GENERAL: Well-appearing, well-nourished and in no acute distress. HEAD: Atraumatic, normocephalic. EYES: Pupils equal round and reactive to light, extraocular movements intact, sclera anicteric, conjunctiva are normal. ENT: nares patent, oropharynx clear without exudates. Moist mucous membranes. NECK: Normal range of motion, crepitus over anterior neck and posterior upper back LUNGS: Breath sounds clear to auscultation bilaterally and equal. No wheezes rales or rhonchi. HEART: Regular rate and rhythm without murmurs ABDOMEN: Soft, nontender, normoactive bowel sounds. No guarding, no rebound. No masses appreciated. EXTREMITIES: Normal range of motion, no pitting or edema. No cyanosis. NEUROLOGICAL: Cranial nerves grossly intact. Normal speech, normal gait. Normal sensory and motor exams. PSYCH: Normal mood, normal affect. SKIN: Warm, Dry, normal turgor, no rashes or lesions noted. Course - Re-evaluation Re-evalutation: Patient with headache he has had in the past. It is not consistent with meningitis, SAH or ICH at this time. On exam, there is possible crepitus in his neck, but CT scan did not show any free air. This was adipose tissue. Blood work is unremarkable, other than elevated AST, which is consistent with his drinking. EKG and troponin are negative for ACS. After headache cocktail, he feels much better. Instructed him to continue to stay hydrated and follow- up with his primary care physician. - Vital Signs Vital signs: Temp Pulse Resp BP Pulse Ox 97.7 F 90 14 158/90 H 98 09/04/17 03:10 09/04/17 03:10 09/04/17 05:01 09/04/17 05:01 09/04/17 05:01 - Laboratory Result Diagrams: 09/04/17 03:45 09/04/17 03:45 Laboratory results interpreted by me: 09/04/17 09/04/17 03:45 03:45 MCV 98 H MCH 34.2 H BUN 3 L Glucose 149 H Direct Bilirubin 0.5 H AST 136 H Alkaline Phosphatase 128 H - Diagnostic Test Radiology reviewed: Image reviewed, Reports reviewed Radiology results interpreted by me: CT Head: NAD CT Soft Tissue Neck: NAD CT Chest: NAD - EKG Interpretation by Me EKG shows normal: Sinus rhythm, [place], Intervals, QRS Complexes, ST-T Waves Rate: Normal Discharge - Discharge Clinical Impression: Neck pain Headache Qualifiers: Headache type: unspecified Headache chronicity pattern: unspecified pattern Intractability: not intractable Qualified Code(s): R51 - Headache Chest pain Qualifiers: Chest pain type: unspecified Qualified Code(s): R07.9 - Chest pain, unspecified Condition: Stable Disposition: HOME, SELF-CARE Additional Instructions: HEADACHE: The physician does not feel that the headache you are experiencing has a serious underlying cause. Most headaches are due to emotional stress, with resultant muscle tension (tension headache). Occasionally, headaches are secondary to changes in the blood vessels of the scalp (vascular headache and migraine headache). Sometimes, a headache is the first symptom of another developing illness, such as a viral infection. You have no evidence of stroke, bleeding, meningitis, or other serious cause of your headache. The treatment of headaches varies with the severity and cause of the pain. Not all headaches need pain shots. In fact, there is evidence that using narcotics for headaches may make them worse in the long run. The physician will determine the therapy that's in your best interest. If you develop a fever, if the headache is different from any you've previously experienced, or if the headache progressively worsens, then call your physician at once or go to the emergency room. REGLAN (METOCLOPRAMIDE): Reglan has been prescribed. This medicine affects the stomach and intestines. It can be used to treat nausea and vomiting, to prevent reflux of stomach acid up into the esophagus, or to increase the contractions of the stomach and intestines. It is often prescribed for esophagitis, and for paralysis of the stomach in diabetics. Reglan can cause either mild restlessness or drowsiness. You should contact the doctor at once if you become extremely restless, anxious, or cannot sleep, or if you develop uncontrollable motions of the lips, tongue, or jaw. Do not take alcohol with this medicine. Do not drive or operate machinery until you have been taking this medicine long enough to know how it affects you. Call the doctor if you develop abdominal pains, lightheadedness, black stool, or blood in the stool or vomitus. USE OF DIPHENHYDRAMINE: Diphenhydramine (Benadryl) is an antihistamine and has been recommended to help treat your headache and to prevent side effects of other medications used to treat headaches. The medication can be repeated four times daily. Age Elixir (12.5 mg/tsp) 25 mg pill adult 1-2 tabs Antihistamines may cause drowsiness, especially with the first dose. Do not operate machinery or drive while under the effects of the medication. Do not combine the medication with alcohol, or with any other medication without talking to your doctor. TORADOL INJECTION: You have been given an injection of ketorolac tromethamine (Toradol). This is an excellent, safe drug for pain control. It also has potent antiinflammatory action. You should have significant pain relief within about one hour. Toradol is not addicting and is non-sedating. It does not interfere with driving or work. Call or return if you develop itching, hives, shortness of breath, or rash. FOLLOW-UP CARE: If you have been referred to a physician for follow-up care, call the physician s office for an appointment as you were instructed or within the next two days. If you experience worsening or a significant change in your symptoms, notify the physician immediately or return to the Emergency Department at any time for re-evaluation. Neck Injury (Cervical Strain) You have a neck strain. This is an injury to the muscles and ligaments in the neck. There is no evidence of a fracture of the neck bones. Also, no injury to the spinal cord or nerve roots was detected. Usually, stiffness and pain INCREASE for the first 24-48 hours after the injury. The pain will gradually resolve and the neck will become more mobile. Most patients are back at work or school within a few days. Typically, complete healing takes about two or three weeks. The usual initial treatment is rest and cold packs. A neck collar may be placed to keep the muscles of the neck at rest. Antiinflammatory and muscle relaxing medication are often used to reduce the spasm and irritation. You should call the doctor, or go to the hospital, if you develop numbness or weakness in any extremity, problems with your bladder or bowel, or pain radiating down the arms. Prescriptions: Methocarbamol [Robaxin 500 mg Tablet] 500 mg PO Q4H PRN #15 tablet PRN Reason: Naproxen [Naprosyn 250 mg Tablet] 500 mg PO Q12H PRN #30 tablet PRN Reason: Forms: Elevated Blood Pressure Referrals: LAM VOIEDO MD [NO LOCAL MD] - Follow up as needed
[2017-09-04 04:19] LABS: ALANINE AMINOTRANSFERASE 58 U/L (21-72); ALBUMIN 3.6 g/dL (3.5-5.0); ALKALINE PHOSPHATASE 128 U/L (38-126); ANION GAP 13 (5-19); ASPARTATE AMINO TRANSFERASE 136 U/L (17-59); BILIRUBIN,DIRECT 0.5 mg/dL (0.0-0.4); BILIRUBIN,TOTAL 0.7 mg/dL (0.2-1.3); BLOOD UREA NITROGEN 3 mg/dL (7-20); CARBON DIOXIDE 27 mmol/L (22-30); CHLORIDE 103 mmol/L (98-107); CREATINE KINASE 73 U/L (55-170); GLUCOSE 149 mg/dL (75-110); POTASSIUM 3.7 mmol/L (3.6-5.0); SODIUM 143.1 mmol/L (137-145); TOTAL PROTEIN 6.7 g/dL (6.3-8.2)
--- NOTE | 2017-09-04 04:35 | RADIOLOGY REPORT (SQ) ---
EXAM DESCRIPTION: CT HEAD WITHOUT IV CONTRAST COMPLETED DATE/TME: 09/04/2017 03:33 EXAM DESCRIPTION: CT of the head without contrast CLINICAL HISTORY: crepitus, headache, free air COMPARISON: None available TECHNIQUE: Axial CT of the head obtained from the skull apex to the skull base without contrast. FINDINGS: No acute intracranial hemorrhage identified. No mass, mass effect, shift of the midline, abnormal extra-axial fluid collection or CT evidence of acute ischemic change identified. The ventricular system is unremarkable. No acute abnormalities of the supratentorial white matter, basal ganglia, cerebellum, or brainstem. The visualized paranasal sinuses and the mastoids are clear. No skull fracture identified. Visualized orbits and globes are unremarkable. DLP:1096.90 mGy-cm IMPRESSION: 1. No acute intracranial abnormality identified. This exam was performed according to our departmental dose-optimization program, which includes automated exposure control, adjustment of the mA and/or kV according to patient size and/or use of iterative reconstruction technique. 2011 [employer]- All Rights Reserved
--- NOTE | 2017-09-04 04:38 | RADIOLOGY REPORT (SQ) ---
EXAM DESCRIPTION: CT NECK CHEST WITHOUT IV CONTRAST COMPLETED DATE/TME: 09/04/2017 03:34 CLINICAL HISTORY: crepitus, headache, free air COMPARISON: None available TECHNIQUE: Axial CT of the neck soft tissues obtained without contrast. FINDINGS: Visualized orbits and globes are unremarkable. No abnormalities of the parotid or submandibular glands. No significant cervical lymphadenopathy. Thyroid gland demonstrates no definite abnormalities. Tongue base is symmetric. Minimal polypoid mucosal thickening of the left maxillary sinus. Remaining paranasal sinuses are well aerated. Visualized pharyngeal mucosal, parapharyngeal, retropharyngeal spaces are symmetric without definite abnormality identified. Fossa of Rosenmuller are clear. No definite abnormalities of the epiglottis. Visualized intracranial contents are unremarkable. No pneumothorax the visualized lung apices. No acute osseous abnormalities identified. Minimal degenerative change of the cervical spine. No definite abnormalities in the superior portions of the mediastinum. DLP: 584.00 mGy-cm IMPRESSION: 1. No abnormalities identified in the neck soft tissues. This exam was performed according to our departmental dose-optimization program, which includes automated exposure control, adjustment of the mA and/or kV according to patient size and/or use of iterative reconstruction technique.
--- NOTE | 2017-09-04 04:40 | RADIOLOGY REPORT (SQ) ---
EXAM DESCRIPTION: CT CHEST WITHOUT IV CONTRAST COMPLETED DATE/TME: 09/04/2017 03:37 CLINICAL HISTORY: free air in back COMPARISON: None Available. TECHNIQUE: Axial CT images of the chest without IV contrast obtained from the thoracic inlet through the diaphragm. Coronal and sagittal reformatted images available. DLP: 685.58 mGy-cm FINDINGS: Chest: Thyroid:No abnormalities of the visualized thyroid. Great Vessels:Great vessels have normal anatomic configuration. Thoracic Aorta:No abnormalities of the thoracic aorta identified. Pulmonary arteries:The main pulmonary artery is not dilated. Heart:No cardiomegaly, significant pericardial effusion, or coronary artery atherosclerosis Lymph Nodes:No enlarged mediastinal lymph nodes identified. Esophagus:No abnormalities of the esophagus identified Other: No subcutaneous air identified in the chest wall. Lungs:No alveolar or interstitial airspace opacities identified. Minimal dependent atelectasis. Pleura:No pleural effusion or pneumothorax. Trachea/Airways:No abnormalities of the visualized trachea or airways. Bones:No destructive osseous lesions. Upper Abdomen:Limited images of the upper abdomen demonstrate no definite abnormalities of visualized portions of the gallbladder, pancreas, spleen, adrenal glands, or kidneys. Diffusely decreased density throughout the liver. IMPRESSION: 1. No acute process identified in the chest. No subcutaneous air identified. 2. Hepatic steatosis. This exam was performed according to our departmental dose-optimization program, which includes automated exposure control, adjustment of the mA and/or kV according to patient size and/or use of iterative reconstruction technique.
[2017-09-04] MEDS ORDERED: KETOROLAC TROMETHAMINE INJ/PF 30 MG/1 ML SDV IV ONE (05:01)
[2017-09-04] MEDS: MAGNESIUM SULFATE/D5W 1 GM/100 ML RTUPB IV SCH ×2 (05:12→05:40)
[2017-09-04] MEDS ORDERED: METHOCARBAMOL 750 MG TABLET PO ONE (05:22)
[2017-09-04 06:05] VITALS: BP 156/94
--- NOTE | 2017-09-04 15:39 | EKG REPORT ---
SEVERITY:- BORDERLINE ECG - SINUS RHYTHM BORDERLINE T ABNORMALITIES, ANT-LAT LEADS : Confirmed by: Katie Larson MD 04-Sep-2017 15:38:12
== END 2017-09-04 06:20 | disposition home or self-care (01) ==
LOC: ER 03:05
DX: R51 Headache (principal); R07.9 Chest pain, unspecified; M54.2 Cervicalgia; R22.1 Localized swelling, mass and lump, neck; M54.89 Other dorsalgia; R74.0 Nonspecific elevation of levels of transaminase and lactic acid dehydrogenase [LDH]; Z86.69 Personal history of other diseases of the nervous system and sense organs
CPT/HCPCS: 93005; 96376; 99284; 96361; 96374; 96375; 36415; 82550; 85025; 80053; 84484; 70450; 70490; 71250; 93010; J1200; J3490; J1885; J2765; J3475; J7030

== ENCOUNTER 2017-09-07 18:46 | Emergency (ER) | payer SELFPAY ==
[2017-09-07] MEDS: NORMAL SALINE 1000 ML 1,000 ML IV PRN ×2 (19:10→19:11)
[2017-09-07 19:14] LABS: ABSOLUTE BASOPHILS # (AUTO) 0.1 10^3/uL (0.0-0.2); ABSOLUTE EOSINOPHILS # (AUTO) 0.2 10^3/uL (0.0-0.6); ABSOLUTE LYMPHOCYTES (AUTO) 2.2 10^3/uL (0.5-4.7); ABSOLUTE MONOCYTES (AUTO) 0.3 10^3/uL (0.1-1.4); ABSOLUTE NEUT (AUTO) 1.7 10^3/uL (1.7-8.2); BASOPHILS % (AUTO) 1.5 % (0-2); EOSINOPHILS % (AUTO) 4.2 % (0-6); HEMATOCRIT 46.8 % (37.9-51.0); HEMOGLOBIN 16.1 g/dL (13.5-17.0); LYMPHOCYTES % (AUTO) 50.2 % (13-45); MEAN CORPUSCULAR HEMOGLOBIN 34.2 pg (27.0-33.4); MEAN CORPUSCULAR HGB CONC 34.3 g/dL (32.0-36.0); MEAN CORPUSCULAR VOLUME 100 fl (80-97); MONOCYTES % (AUTO) 6.7 % (3-13); PLATELET COUNT 264 10^3/uL (150-450); RED CELL DISTRIBUTION WIDTH 14.1 % (11.5-14.0); SEGMENTED NEUTROPHILS % (AUTO) 37.4 % (42-78); TOTAL CELLS COUNTED % (AUTO) 100 %; WHITE BLOOD COUNT 4.5 10^3/uL (4.0-10.5)
[2017-09-07 19:20] LABS: ALANINE AMINOTRANSFERASE 48 U/L (21-72); ALBUMIN 3.8 g/dL (3.5-5.0); ALCOHOL 228 mg/dL (NONE DETECTED); ALKALINE PHOSPHATASE 132 U/L (38-126); ANION GAP 16 (5-19); ASPARTATE AMINO TRANSFERASE 88 U/L (17-59); BILIRUBIN,DIRECT 0.5 mg/dL (0.0-0.4); BILIRUBIN,TOTAL 0.7 mg/dL (0.2-1.3); BLOOD UREA NITROGEN 4 mg/dL (7-20); CALCIUM 8.8 mg/dL (8.4-10.2); CARBON DIOXIDE 25 mmol/L (22-30); CHLORIDE 107 mmol/L (98-107); CREATINE KINASE 75 U/L (55-170); GLUCOSE 111 mg/dL (75-110); LIPASE 131.5 U/L (23-300); PHOSPHORUS 3.6 mg/dL (2.5-4.5); POTASSIUM 3.8 mmol/L (3.6-5.0); SODIUM 148.3 mmol/L (137-145)
--- NOTE | 2017-09-07 19:49 | ER Document Report ---
ED General - General Chief Complaint: Weakness Stated Complaint: BODY PAIN Time Seen by Provider: 09/07/17 18:55 TRAVEL OUTSIDE OF THE [place] IN LAST 30 DAYS: No - HPI Patient complains to provider of: Weakness left body pain Notes: Patient coming in for evaluation of weakness and left body pain. is at bedside. States that the patient was in a doorway when he fell face first and edema try to brace himself. Upon my evaluation patient smells of alcohol and does admit to drinking multiple shots. Patient otherwise is moving all 4 extremities ANO x3. Patient does look red however states no sun exposure patient otherwise states that he has been drinking plenty water to stay hydrated. Denies any nausea vomiting fevers or chills. Patient states his whole left side of his body hurts. - Related Data Allergies/Adverse Reactions: No Known Allergies Allergy (Verified 09/07/17 19:01) Past Medical History - Social History Smoking Status: Current Some Day Smoker Frequency of alcohol use: Social Drug Abuse: None Family History: Reviewed & Not Pertinent Patient has suicidal ideation: No Patient has homicidal ideation: No - Past Medical History Cardiac Medical History: Denies: Hx Coronary Artery Disease, Hx Heart Attack Renal/ Medical History: Denies: Hx Peritoneal Dialysis Past Surgical History: Reports: Hx Tonsillectomy. Denies: Hx Abdominal Surgery Review of Systems - Review of Systems Constitutional: No symptoms reported EENT: No symptoms reported Cardiovascular: No symptoms reported Respiratory: No symptoms reported Gastrointestinal: No symptoms reported Genitourinary: No symptoms reported Male Genitourinary: No symptoms reported Musculoskeletal: Other - Left body pain Skin: No symptoms reported Hematologic/Lymphatic: No symptoms reported Neurological/Psychological: No symptoms reported -: Yes All other systems reviewed and negative Physical Exam - Vital signs Vitals: Resp Pulse Ox 11 L 93 09/07/17 18:56 09/07/17 18:56 Interpretation: Normal - General General appearance: Appears well, Alert Notes: Smells of alcohol - HEENT Head: Normocephalic, Atraumatic, Other - Tenderness palpation of the orbits on the left Eyes: Normal Pupils: PERRL - Respiratory Respiratory status: No respiratory distress Chest status: Nontender Breath sounds: Normal Chest palpation: Normal - Cardiovascular Rhythm: Regular Heart sounds: Normal auscultation Murmur: No - Abdominal Inspection: Normal Distension: No distension Bowel sounds: Normal Tenderness: Nontender Organomegaly: No organomegaly - Back Back: Normal, Nontender - Extremities General upper extremity: Normal inspection, Nontender, Normal color, Normal ROM , Normal temperature General lower extremity: Normal inspection, Nontender, Normal color, Normal ROM , Normal temperature - Neurological Neuro grossly intact: Yes Cognition: Normal Orientation: AAOx4 Anthony Coma Scale Eye Opening: Spontaneous [place] Coma Scale Verbal: Oriented [place] Coma Scale Motor: Obeys Commands Anthony Coma Scale Total: 15 Speech: Normal Motor strength normal: LUE, RUE, LLE, RLE Sensory: Normal - Psychological Associated symptoms: Normal affect, Normal mood - Skin Skin Temperature: Warm Skin Moisture: Dry Skin Color: Normal Course - Re-evaluation Re-evalutation: 09/08/17 03:55 No critical pathology was seen slight dehydration with elevated sodium. Patient 's alcohol level is almost 3 times legal limit. Family at bedside is concerned that the patient continued to have pain did offer Neurontin for his pain which the family member states he has been on the past currently off agrees with this. Concern is that they do not currently have insurance I will give the patient's information to our social work team to see if we can establish follow- up with primary care for the patient as that the states that the patient only drinks because of his pain. Did recommend decreasing alcohol consumption will discharge home 09/08/17 03:56 Maxillary sinus disease on the left consistent with areas of tenderness to palpation will start azithromycin for sinusitis infection - Vital Signs Vital signs: Temp Pulse Resp BP Pulse Ox 98.1 F 16 143/86 H 93 09/07/17 19:04 09/07/17 21:46 09/07/17 21:46 09/07/17 21:46 - Laboratory Result Diagrams: 09/07/17 18:50 09/07/17 18:50 Laboratory results interpreted by me: 09/07/17 09/07/17 09/07/17 18:50 18:50 20:27 MCV 100 H MCH 34.2 H RDW 14.1 H Seg Neutrophils % 37.4 L Lymphocytes % 50.2 H Sodium 148.3 H BUN 4 L Glucose 111 H Direct Bilirubin 0.5 H AST 88 H Alkaline Phosphatase 132 H Urine Ketones TRACE H Discharge - Discharge Clinical Impression: Left maxillary sinusitis, Pain of left side of body Acute alcohol intoxication Qualifiers: Complication of substance-induced condition: uncomplicated Qualified Code(s): F10.929 - Alcohol use, unspecified with intoxication, unspecified Condition: Good Disposition: HOME, SELF-CARE Instructions: Acute Alcohol Intoxication ([facility]), Chronic Pain Control ([facility]), Pain Control without Medication ([facility]), Sinusitis ([facility]) Additional Instructions: Your laboratory studies do show some signs of dehydration which is more likely related to your alcohol consumption. Your alcohol level today is 230 almost 3 times legal limit. I would recommend drinking more water and gradually sustained from alcohol consumption. Head CT does not show any critical pathology. Head CT does show some signs of left maxillary sinusitis which can explain some of the pain after having to palpation. We will start you on antibiotic called Zithromax for this Laboratory studies not show any signs of acute electrolyte abnormalities significant infection or other causes for your pain. I would at this time try Neurontin for pain control does not drink alcohol and take Neurontin at the same time. I will give your information to 1 of our social workers that we can try to help establish a primary care and follow-up Prescriptions: Azithromycin 250 mg PO DAILY #4 tablet Gabapentin [Neurontin 100 mg Capsule] 100 mg PO Q12 #60 capsule Forms: Return to Work
--- NOTE | 2017-09-07 20:10 | RADIOLOGY REPORT (SQ) ---
EXAM DESCRIPTION: CT HEAD WITHOUT COMPLETED DATE/TIME: 09/07/2017 7:57 pm REASON FOR STUDY: fall orbital pain COMPARISON: 09/04/2017 TECHNIQUE: Axial images acquired through the brain without intravenous contrast. Images reviewed wi th bone, brain and subdural windows. Additional sagittal and coronal reconstructions were generated. Images stored on PACS. All CT scanners at this facility use dose modulation, iterative reconstruction, and/or weight based d osing when appropriate to reduce radiation dose to as low as reasonably achievable (ALARA). [facility]: Dose Right [facility]: CareDose [facility]: Dose Right [facility]: Teradose 4D [facility]: Smart [employer] RADIATION DOSE: CT Rad equipment meets quality standard of care and radiation dose reduction techniq ues were employed. CTDIvol: 53.2 mGy. DLP: 1044 mGy-cm. mGy. LIMITATIONS: None. FINDINGS: VENTRICLES: Normal size and contour. CEREBRUM: No masses. No hemorrhage. No midline shift. No evidence for acute infarction. Normal gra y/white matter differentiation. No areas of low density in the white matter. CEREBELLUM: No masses. No hemorrhage. No alteration of density. No evidence for acute infarction. EXTRAAXIAL SPACES: No fluid collections. No masses. ORBITS AND GLOBE: No intra- or extraconal masses. Normal contour of globe without masses. CALVARIUM: No fracture. PARANASAL SINUSES: Small mucous retention cyst in the left maxillary sinus. SOFT TISSUES: No mass or hematoma. OTHER: No other significant finding. IMPRESSION: Mild left maxillary sinus disease with no acute intracranial imaging findings. EVIDENCE OF ACUTE STROKE: NO. COMMENT: Quality ID # [id number]: Final reports with documentation of one or more dose reduction techniques (e.g., Automated exposure control, adjustment of the mA and/or kV according to patient size, use of iterative reconstruction technique) TECHNICAL DOCUMENTATION: JOB ID: [id number]- All Rights Reserved Reading location - IP/workstation name: [email or web address]
[2017-09-07 20:44] LABS: APPEARANCE,URINE CLEAR; BILIRUBIN,URINE NEGATIVE (NEGATIVE); COLOR,URINE YELLOW; GLUCOSE, URINE NEGATIVE (NEGATIVE); KETONES,URINE TRACE mg/dL (NEGATIVE); LEUKOCYTE ESTERASE,URINE NEGATIVE (NEGATIVE); NITRITE,URINE NEGATIVE (NEGATIVE); PROTEIN,URINE NEGATIVE (NEGATIVE); URINE SPECIFIC GRAVITY 1.012; UROBILINOGEN,URINE NEGATIVE mg/dL (<2.0)
[2017-09-07 20:57] LABS: URINE AMPHETAMINES SCREEN NEGATIVE; URINE BARBITURATES SCREEN NEGATIVE; URINE BENZODIAZEPINES SCREEN NEGATIVE; URINE COCAINE SCREEN NEGATIVE; URINE MARIJUANA (THC) SCREEN NEGATIVE; URINE METHADONE SCREEN NEGATIVE; URINE PHENCYCLIDINE SCREEN NEGATIVE
[2017-09-07] MEDS ORDERED: AZITHROMYCIN 250 MG TABLET PO ONE (21:10)
[2017-09-07] MEDS ORDERED: GABAPENTIN 100 MG CAPSULE PO ONE (21:14)
[2017-09-07 22:05] VITALS: BP 143/86
--- NOTE | 2017-09-07 22:56 | EKG REPORT ---
SEVERITY:- BORDERLINE ECG - SINUS RHYTHM BORDERLINE T WAVE ABNORMALITIES : Confirmed by: Charlie Odom 07-Sep-2017 22:55:33
== END 2017-09-07 22:06 | disposition home or self-care (01) ==
LOC: ER 18:46
DX: J32.0 Chronic maxillary sinusitis (principal); R52 Pain, unspecified; F10.129 Alcohol abuse with intoxication, unspecified; Y90.7 Blood alcohol level of 200-239 mg/100 ml; F17.200 Nicotine dependence, unspecified, uncomplicated
CPT/HCPCS: 93005; 99285; 96360; 96361; 36415; 80307 ×2; 82550; 83690; 83735; 84100; 85025; 80053; 81001; 70450; 93010; J7030

== ENCOUNTER 2017-09-14 13:38 | Emergency (ER) | payer SELFPAY ==
[2017-09-14] MEDS ORDERED: ONDANSETRON 4 MG TAB.RAPDIS PO ONE (14:34)
[2017-09-14] MEDS ORDERED: FENTANYL CITRATE INJ/PF 100 MCG/2 ML AMPUL IM ONE ×2 (14:35→18:00)
--- NOTE | 2017-09-14 14:38 | ER Document Report ---
ED Medical Screen (RME) - General Chief Complaint: Neck Pain < 24hrs old Stated Complaint: NECK PAIN Time Seen by Provider: 09/14/17 14:28 Notes: RAPID MEDICAL EVALUATION DISCLOSURE I have seen this patient as part of a Rapid Medical Evaluation and, if applicable, placed any initially appropriate orders. The patient will be seen and fully evaluated, including a full history and physical exam, by a provider ( in Main ED or Fast Track) when a room becomes available. 42-year-old male here with complaints of fevers of 102F, neck pain, and overall feeling bad that started this morning. He has had several episodes of vomiting and nausea. He has tried Motrin which has helped with the fever and his last dose was 2 hours ago. He was seen here recently for whole body pain and was prescribed gabapentin which she states is not helping. He and report that they had recent close contact with a friend that had meningitis. EXAM Mild paraspinal bilateral cervical muscle TTP Tachycardic Alert and oriented, conversational TRAVEL OUTSIDE OF THE [place] IN LAST 30 DAYS: No - Related Data Allergies/Adverse Reactions: No Known Allergies Allergy (Verified 09/07/17 19:01) Past Medical History - Past Medical History Cardiac Medical History: Denies: Hx Coronary Artery Disease, Hx Heart Attack Renal/ Medical History: Denies: Hx Peritoneal Dialysis Past Surgical History: Reports: Hx Tonsillectomy. Denies: Hx Abdominal Surgery Physical Exam - Vital signs Vitals: Temp Pulse Resp BP Pulse Ox 97.8 F 115 H 20 149/101 H 97 09/14/17 13:48 09/14/17 13:48 09/14/17 13:48 09/14/17 13:48 09/14/17 13:48 Course - Vital Signs Vital signs: Temp Pulse Resp BP Pulse Ox 97.8 F 108 H 20 149/101 H 97 09/14/17 13:54 09/14/17 13:54 09/14/17 13:54 09/14/17 13:54 09/14/17 13:54
[2017-09-14 15:18] LABS: ABSOLUTE BASOPHILS # (AUTO) 0.1 10^3/uL (0.0-0.2); ABSOLUTE EOSINOPHILS # (AUTO) 0.1 10^3/uL (0.0-0.6); ABSOLUTE MONOCYTES (AUTO) 0.5 10^3/uL (0.1-1.4); ABSOLUTE NEUT (AUTO) 6.7 10^3/uL (1.7-8.2); BASOPHILS % (AUTO) 0.9 % (0-2); EOSINOPHILS % (AUTO) 1.4 % (0-6); HEMATOCRIT 47.9 % (37.9-51.0); HEMOGLOBIN 16.6 g/dL (13.5-17.0); LYMPHOCYTES % (AUTO) 11.7 % (13-45); MEAN CORPUSCULAR HGB CONC 34.6 g/dL (32.0-36.0); MEAN CORPUSCULAR VOLUME 98 fl (80-97); PLATELET COUNT 188 10^3/uL (150-450); RED BLOOD COUNT 4.86 10^6/uL (4.35-5.55); RED CELL DISTRIBUTION WIDTH 14.7 % (11.5-14.0); TOTAL CELLS COUNTED % (AUTO) 100 %; WHITE BLOOD COUNT 8.3 10^3/uL (4.0-10.5)
[2017-09-14 15:34] LABS: ALANINE AMINOTRANSFERASE 42 U/L (21-72); ALKALINE PHOSPHATASE 114 U/L (38-126); ANION GAP 16 (5-19); ASPARTATE AMINO TRANSFERASE 82 U/L (17-59); BILIRUBIN,DIRECT 0.6 mg/dL (0.0-0.4); BILIRUBIN,TOTAL 1.4 mg/dL (0.2-1.3); BLOOD UREA NITROGEN 3 mg/dL (7-20); CARBON DIOXIDE 25 mmol/L (22-30); CHLORIDE 101 mmol/L (98-107); GLUCOSE 153 mg/dL (75-110); POTASSIUM 3.4 mmol/L (3.6-5.0); SODIUM 141.9 mmol/L (137-145); TOTAL PROTEIN 7.4 g/dL (6.3-8.2)
[2017-09-14 15:53] LABS: APPEARANCE,URINE CLEAR; BILIRUBIN,URINE NEGATIVE (NEGATIVE); COLOR,URINE YELLOW; GLUCOSE, URINE NEGATIVE (NEGATIVE); KETONES,URINE NEGATIVE (NEGATIVE); LEUKOCYTE ESTERASE,URINE TRACE (NEGATIVE); NITRITE,URINE NEGATIVE (NEGATIVE); PROTEIN,URINE NEGATIVE (NEGATIVE); URINE SPECIFIC GRAVITY 1.003; UROBILINOGEN,URINE NEGATIVE mg/dL (<2.0)
--- NOTE | 2017-09-14 16:01 | ER Document Report ---
ED Neck/Back Problem - General Chief Complaint: Neck Pain < 24hrs old Stated Complaint: NECK PAIN Time Seen by Provider: 09/14/17 14:28 Information source: Patient TRAVEL OUTSIDE OF THE [place] IN LAST 30 DAYS: No - HPI Patient complains to provider of: Pain, Neck Onset: Other - 3 DAYS AGO Onset: Gradual Timing: Constant, Still present Quality of pain: Achy, Dull Severity: Moderate Context: Other - NO KNOWN INCIDENT OR INJURY. denies: Became dizzy, Bending, Fainted, Fall/near-fall, Lifting, Seizure, Turning Recent injury: No Associated symptoms: Abdominal pain, Chills, Fever, Radiation to leg - BILATERAL , Lower back pain, Upper back pain, Other - DIZZINESS, NEAR-SYNCOPE. denies: Incontinence, Unable to urinate Exacerbated by: Movement of neck Relieved by: Nothing Similar symptoms previously: No Recently seen / treated by doctor: Yes - 1 WEEK AGO, HERE, CC: "BODY PAIN" AFTER FALL Notes: Review of records at this facility reveals that this is the patient's fourth visit to the emergency department this calendar year for some kind of painful condition, various body parts. - Related Data Allergies/Adverse Reactions: No Known Allergies Allergy (Verified 09/14/17 14:49) Past Medical History - General Information source: Patient - Social History Smoking Status: Current Some Day Smoker Chew tobacco use (# tins/day): No Frequency of alcohol use: Occasional Drug Abuse: None Lives with: Spouse/Significant other Family History: Reviewed & Not Pertinent Patient has suicidal ideation: No Patient has homicidal ideation: No - Past Medical History Cardiac Medical History: Reports: None Denies: Hx Coronary Artery Disease, Hx Heart Attack Pulmonary Medical History: Reports: None EENT Medical History: Reports: None Neurological Medical History: Reports: None Endocrine Medical History: Reports: None Renal/ Medical History: Reports: None. Denies: Hx Peritoneal Dialysis Malignancy Medical History: Reports None GI Medical History: Reports: None Musculoskeltal Medical History: Reports None Psychiatric Medical History: Reports: None Past Surgical History: Reports: Hx Tonsillectomy. Denies: Hx Abdominal Surgery Review of Systems - Review of Systems Constitutional: See HPI EENT: No symptoms reported Cardiovascular: No symptoms reported Respiratory: No symptoms reported Gastrointestinal: See HPI Genitourinary: No symptoms reported. denies: Incontinence, Retention Musculoskeletal: See HPI, Neck pain Skin: No symptoms reported Neurological/Psychological: See HPI Physical Exam - Vital signs Vitals: Temp Pulse Resp BP Pulse Ox 97.8 F 115 H 20 149/101 H 97 09/14/17 13:48 09/14/17 13:48 09/14/17 13:48 09/14/17 13:48 09/14/17 13:48 Interpretation: Hypertensive, Tachycardic. No: Tachypneic, Febrile - General General appearance: Appears well, Alert In distress: None - HEENT Head: Normocephalic Eyes: Normal Conjunctiva: Normal Ears: Normal Nasal: Normal Mouth/Lips: Normal Mucous membranes: Normal Pharynx: Normal Neck: Other - COMPLAINS OF PAIN WHEREVER PALPATED. MUCH SUBCUTANEOUS ADIPOSE TISSUE, NO MASSES PALPABLE. NO ASYMMETRY. - Respiratory Respiratory status: No respiratory distress Breath sounds: Normal - Cardiovascular Rhythm: Regular Heart sounds: Normal auscultation Murmur: No - Abdominal Inspection: Obese - Back Back: Normal, Tender - Extremities General upper extremity: Normal inspection General lower extremity: Normal inspection - Neurological Neuro grossly intact: Yes Cognition: Normal Orientation: AAOx4 - Psychological Associated symptoms: Normal affect, Normal mood - Skin Skin Temperature: Warm Skin Moisture: Dry Skin Color: Normal Skin Turgor: Elastic Course - Re-evaluation Re-evalutation: 09/14/17 18:58 Patient states he feels somewhat better, pain not so intense. Results of laboratory studies discussed with patient and his significant other in detail. Possible etiologies discussed. Most likely, this pain is a late consequence of the trauma he suffered last week when he fell. Infectious or inflammatory etiologies are extremely unlikely. Treatment will consist of ibuprofen, diazepam as a muscle relaxer, and gabapentin routinely for pain control. - Vital Signs Vital signs: Temp Pulse Resp BP Pulse Ox 97.8 F 108 H 20 149/101 H 97 09/14/17 13:54 09/14/17 13:54 09/14/17 13:54 09/14/17 13:54 09/14/17 13:54 - Laboratory Result Diagrams: 09/14/17 14:55 09/14/17 14:55 Laboratory results interpreted by me: 09/14/17 09/14/17 09/14/17 14:55 14:55 14:55 MCV 98 H MCH 34.0 H RDW 14.7 H Seg Neutrophils % 80.0 H Lymphocytes % 11.7 L Potassium 3.4 L BUN 3 L Glucose 153 H Total Bilirubin 1.4 H Direct Bilirubin 0.6 H AST 82 H Ur Leukocyte Esterase TRACE H Discharge - Discharge Clinical Impression: Cervical strain, acute Qualifiers: Encounter type: initial encounter Qualified Code(s): S16.1XXA - Strain of muscle, fascia and tendon at neck level, initial encounter Condition: Stable Disposition: HOME, SELF-CARE Instructions: Neck Injury (Cervical Strain) ([facility]), Muscle Relaxers ([facility]), Ibuprofen (General) ([facility]), Neuropathy ([facility]) Additional Instructions: REST, DRINK PLENTY OF FLUIDS. AVOID PAINFUL ACTIVITY. MEDS DIRECTED. FOLLOW UP WITH YOUR PRIMARY CARE PROVIDER OR RETURN TO E.R. IF PROBLEMS.
[2017-09-14] MEDS ORDERED: RINGERS SOLUTION,LACTATED 2,000 ML IV PRN (16:56)
[2017-09-14] MEDS ORDERED: DIAZEPAM 5 MG TABLET PO ONE (18:00)
[2017-09-14 18:59] LABS: URINE AMPHETAMINES SCREEN NEGATIVE; URINE BARBITURATES SCREEN NEGATIVE; URINE BENZODIAZEPINES SCREEN NEGATIVE; URINE COCAINE SCREEN NEGATIVE; URINE MARIJUANA (THC) SCREEN NEGATIVE; URINE METHADONE SCREEN NEGATIVE; URINE PHENCYCLIDINE SCREEN NEGATIVE
[2017-09-14 19:15] VITALS: BP 145/93
== END 2017-09-14 19:19 | disposition home or self-care (01) ==
LOC: ER 13:38
DX: S16.1XXA Strain of muscle, fascia and tendon at neck level, initial encounter (principal); X58.XXXA Exposure to other specified factors, initial encounter; M54.2 Cervicalgia; M54.5 Low back pain; R10.9 Unspecified abdominal pain; R50.9 Fever, unspecified; F17.200 Nicotine dependence, unspecified, uncomplicated
CPT/HCPCS: 99283; 96372; 36415; 87040; 80307 ×2; 85025; 85652; 80053; 81001; S0119; J3010

== ENCOUNTER 2017-09-25 11:45 | Emergency (ER) | payer SELFPAY ==
--- NOTE | 2017-09-25 12:30 | ER Document Report ---
ED Medical Screen (RME) - General Chief Complaint: Chest Pain Stated Complaint: CHEST PAIN Time Seen by Provider: 09/25/17 12:24 Notes: RAPID MEDICAL EVALUATION DISCLOSURE I have seen this patient as part of a Rapid Medical Evaluation and, if applicable, placed any initially appropriate orders. The patient will be seen and fully evaluated, including a full history and physical exam, by a provider ( in Main ED or Fast Track) when a room becomes available. 42-year-old male here with complaints of midsternal chest pain radiating up to the right shoulder and down the right arm with some right fingertip tingling and shortness of breath that started this morning. The symptoms lasted about 1 hour before resolution. He also complains of some "entire head and face is numb ". He denies any extremity numbness or weakness. He is afraid he may have had a stroke but denies any previous history of stroke CA PE. EXAM CTAB RRR Strength 5/5 with intact sensation all extremities Decreased sensation to the left and right face No facial droop No pronator drift TRAVEL OUTSIDE OF THE [place] IN LAST 30 DAYS: No - Related Data Allergies/Adverse Reactions: No Known Allergies Allergy (Verified 09/25/17 12:28) Past Medical History - Social History Chew tobacco use (# tins/day): No Frequency of alcohol use: None Drug Abuse: None - Past Medical History Cardiac Medical History: Denies: Hx Coronary Artery Disease, Hx Heart Attack Renal/ Medical History: Denies: Hx Peritoneal Dialysis Past Surgical History: Reports: Hx Tonsillectomy. Denies: Hx Abdominal Surgery Physical Exam - Vital signs Vitals: Temp Pulse Resp BP Pulse Ox 99.7 F 84 16 135/84 H 96 09/25/17 11:59 09/25/17 11:59 09/25/17 11:59 09/25/17 11:59 09/25/17 11:59 Course - Vital Signs Vital signs: Temp Pulse Resp BP Pulse Ox 99.7 F 84 16 135/84 H 96 09/25/17 11:59 09/25/17 11:59 09/25/17 11:59 09/25/17 11:59 09/25/17 11:59
--- NOTE | 2017-09-25 12:59 | ER Document Report ---
ED General - General Chief Complaint: Chest Pain Stated Complaint: CHEST PAIN Time Seen by Provider: 09/25/17 12:24 Notes: The patient is a 42-year-old male who presents with right-sided chest pain, tingling of his entire face and feeling foggy. Symptoms started at 8 AM today. Is not concerned about his chest pain because he has had this multiple times in the past and it usually quickly resolves after he burps. Patient denies headache, blurry vision, focal weakness, injury, neck pain, rash, difficulty walking or back pain. TRAVEL OUTSIDE OF THE [place] IN LAST 30 DAYS: No - Related Data Allergies/Adverse Reactions: No Known Allergies Allergy (Verified 09/25/17 12:28) Past Medical History - General Information source: Patient - Social History Smoking Status: Former Smoker Chew tobacco use (# tins/day): No Frequency of alcohol use: Occasional Drug Abuse: None Family History: Reviewed & Not Pertinent Patient has suicidal ideation: No Patient has homicidal ideation: No - Past Medical History Cardiac Medical History: Denies: Hx Coronary Artery Disease, Hx Heart Attack Renal/ Medical History: Denies: Hx Peritoneal Dialysis Past Surgical History: Reports: Hx Tonsillectomy. Denies: Hx Abdominal Surgery Review of Systems - Review of Systems Notes: REVIEW OF SYSTEMS: CONSTITUTIONAL: -fevers, -chills EENT: -eye pain, -difficulty swallowing, -nasal congestion CARDIOVASCULAR: +chest pain, -syncope. RESPIRATORY: -cough, -SOB GASTROINTESTINAL: -abdominal pain, -nausea, -vomiting, -diarrhea GENITOURINARY: -dysuria, -hematuria MUSCULOSKELETAL: -back pain, -neck pain SKIN: -rash or skin lesions. HEMATOLOGIC: -easy bruising or bleeding. LYMPHATIC: -swollen, enlarged glands. NEUROLOGICAL: -altered mental status or loss of consciousness, -headache, + tingling of face PSYCHIATRIC: -anxiety, -depression. ALL OTHER SYSTEMS REVIEWED AND NEGATIVE. Physical Exam - Vital signs Vitals: Temp Pulse Resp BP Pulse Ox 99.7 F 84 16 135/84 H 96 09/25/17 11:59 09/25/17 11:59 09/25/17 11:59 09/25/17 11:59 09/25/17 11:59 - Notes Notes: PHYSICAL EXAMINATION: GENERAL: Well-appearing, well-nourished and in no acute distress. HEAD: Atraumatic, normocephalic. EYES: Pupils equal round and reactive to light, extraocular movements intact, sclera anicteric, conjunctiva are normal. ENT: nares patent, oropharynx clear without exudates. Moist mucous membranes. NECK: Normal range of motion, supple without lymphadenopathy LUNGS: Breath sounds clear to auscultation bilaterally and equal. No wheezes rales or rhonchi. HEART: Regular rate and rhythm without murmurs ABDOMEN: Soft, nontender, normoactive bowel sounds. No guarding, no rebound. No masses appreciated. EXTREMITIES: Normal range of motion, no pitting or edema. No cyanosis. NEUROLOGICAL: Symmetrical face, subjective tingling of face. Normal speech, normal gait. 5 out of 5 strength in all 4 extremities. PSYCH: Normal mood, normal affect. SKIN: Warm, Dry, normal turgor, no rashes or lesions noted. Course - Re-evaluation Re-evalutation: Patient presents with multiple vague complaints that did not appear to be concerning for any acute life-threatening pathology. His intermittent bilateral facial tingling is not consistent with an acute CVA. His head CT is negative and blood work is only remarkable for slight hypokalemia. HEART score is 1. Vitals are within normal limits at triage and at time of discharge. Physical examination is unremarkable. Patient has tolerated oral intake without difficulty. Patient was not noted to be in distress at any point during their ER visit. At this time, based on the reassuring evaluation, I do not suspect an acute VT, pulmonary embolus, aortic dissection, acute intra- abdominal pathology, stroke, or sepsis.Will discharge with return precautions and follow-up recommendations. Verbal discharge instructions given a the bedside and opportunity for questions given. Medication warnings reviewed. Patient is in agreement with this plan and has verbalized understanding of return precautions and the need for primary care follow-up in the next 24-72 hours. - Vital Signs Vital signs: Temp Pulse Resp BP Pulse Ox 97.9 F 68 16 122/79 97 09/25/17 13:46 09/25/17 13:46 09/25/17 11:59 09/25/17 13:46 09/25/17 13:46 - Laboratory Result Diagrams: 09/25/17 12:39 09/25/17 12:39 Laboratory results interpreted by me: 09/25/17 09/25/17 12:39 12:39 WBC 11.2 H RBC 4.30 L MCH 34.6 H RDW 14.2 H Seg Neutrophils % 79.6 H Lymphocytes % 12.8 L Absolute Neutrophils 8.9 H Potassium 3.3 L Chloride 96 L BUN 3 L Glucose 138 H - Diagnostic Test Radiology reviewed: Image reviewed, Reports reviewed Radiology results interpreted by me: CT Head: NAD CXR: NAD - EKG Interpretation by Me EKG shows normal: Sinus rhythm, [place], Intervals, QRS Complexes, ST-T Waves Rate: Normal Discharge - Discharge Clinical Impression: Facial tingling sensation Chest pain Qualifiers: Chest pain type: unspecified Qualified Code(s): R07.9 - Chest pain, unspecified Condition: Stable Disposition: HOME, SELF-CARE Additional Instructions: CHEST PAIN OF UNCLEAR CAUSE: The exact cause of your chest pain isn't clear. Fortunately, there is no evidence of a dangerous medical condition. Further testing may be required to find the source of the pain. Most often, we find that this pain is coming from the chest wall -- the muscles or rib joints in the chest. But chest pain can come from the lung and lung lining, the esophagus, the heart valves or heart lining, and even the stomach or gallbladder. Rest. Eat lightly until the pain is gone. We may prescribe medicine for pain and inflammation. You should call the physician immediately if the pain radiates to the shoulder, jaw or arms; if you start to run a fever or develop a cough; or if you develop shortness of breath, or other new or alarming symptoms. NORMAL EXAM AND WORKUP: At this time, your examination and workup show no significant abnormality. No significant abnormal physical findings were noted. All laboratory, EKG, and imaging (x-ray, CT scans, ultrasound) studies that were ordered show no significant abnormality. Although your examination and all studies that were ordered showed no significant abnormal finding, there are no examinations and no studies that are 100% accurate. There is always the possibility that some abnormality could exist and not be detected with physical examination or within the limits and capabilities of laboratory and other studies. You should return or follow up as you were instructed on your visit today for further evaluation if your symptoms do not resolve. CHEST WALL PAIN: Your chest pain may be coming from the chest wall. This is often caused by straining the muscles or joints in the chest during physical activity, direct trauma, coughing, or vigorous vomiting. Persons with arthritis are especially prone to this type of pain, due to inflammation of the cartilage joints near the breast bone. Occasionally, no cause can be found. Rest from strenuous physical activity. This kind of chest pain is usually made worse by movement of the chest. Depending on the symptoms, we may prescribe medicine for pain, muscle relaxation, and antiinflammatory effects. If the pain is new, and seems to be due to muscle strain, cold packs can help. Otherwise, apply gentle warmth to the painful area for 15 minutes every hour or two. You should call contact the doctor immediately if things change. Further evaluation is needed if you develop a fever or cough, if the nature of the pain changes, or if you become short of breath. FOLLOW-UP CARE: If you have been referred to a physician for follow-up care, call the physician s office for an appointment as you were instructed or within the next two days. If you experience worsening or a significant change in your symptoms, notify the physician immediately or return to the Emergency Department at any time for re-evaluation. Neuropathy Your symptoms are due to neuropathy. Neuropathy is nerve damage. There are many causes, including diabetes, immune disease, alcohol, blood vessel disease, and vitamin deficiency. The usual symptoms are pain and numbness. Neuropathy can occur anywhere, but it's most likely in the "longest" nerves. That's why the feet are most often affected. Sometimes the nerve damage can heal. But if the symptoms have lasted more than a few months, the damage is permanent. To avoid further damage, treat your underlying health problems carefully. If you have diabetes, keep the blood sugar as normal as possible. Avoid alcohol. Treat high blood pressure and high cholesterol. Treating chronic pain can be a problem. Obviously, you don't want to become addicted to pain medicine. Work closely with your doctor on pain management. Your options include antiinflammatory medicine, anti seizure medicine, antidepressants, and pain clinic management. Contact the doctor if there is a significant change. Referrals: [facility] [Outside] - Follow up as needed
[2017-09-25 13:00] LABS: ABSOLUTE BASOPHILS # (AUTO) 0.1 10^3/uL (0.0-0.2); ABSOLUTE EOSINOPHILS # (AUTO) 0.2 10^3/uL (0.0-0.6); ABSOLUTE LYMPHOCYTES (AUTO) 1.4 10^3/uL (0.5-4.7); ABSOLUTE MONOCYTES (AUTO) 0.5 10^3/uL (0.1-1.4); ABSOLUTE NEUT (AUTO) 8.9 10^3/uL (1.7-8.2); BASOPHILS % (AUTO) 1.2 % (0-2); EOSINOPHILS % (AUTO) 1.5 % (0-6); HEMATOCRIT 41.8 % (37.9-51.0); HEMOGLOBIN 14.9 g/dL (13.5-17.0); LYMPHOCYTES % (AUTO) 12.8 % (13-45); MEAN CORPUSCULAR HEMOGLOBIN 34.6 pg (27.0-33.4); MEAN CORPUSCULAR HGB CONC 35.7 g/dL (32.0-36.0); MEAN CORPUSCULAR VOLUME 97 fl (80-97); MONOCYTES % (AUTO) 4.9 % (3-13); PLATELET COUNT 276 10^3/uL (150-450); RED CELL DISTRIBUTION WIDTH 14.2 % (11.5-14.0); SEGMENTED NEUTROPHILS % (AUTO) 79.6 % (42-78); TOTAL CELLS COUNTED % (AUTO) 100 %; WHITE BLOOD COUNT 11.2 10^3/uL (4.0-10.5)
[2017-09-25 13:22] LABS: ANION GAP 13 (5-19); BLOOD UREA NITROGEN 3 mg/dL (7-20); CALCIUM 8.9 mg/dL (8.4-10.2); CARBON DIOXIDE 28 mmol/L (22-30); CHLORIDE 96 mmol/L (98-107); GLUCOSE 138 mg/dL (75-110); POTASSIUM 3.3 mmol/L (3.6-5.0); SODIUM 137.1 mmol/L (137-145)
--- NOTE | 2017-09-25 13:47 | RADIOLOGY REPORT (SQ) ---
EXAM DESCRIPTION: CT HEAD WITHOUT COMPLETED DATE/TIME: 09/25/2017 1:07 pm REASON FOR STUDY: head/facial numbness COMPARISON: CT brain 01/05/2017, 09/04/2017, 09/07/2017 TECHNIQUE: Axial images acquired through the brain without intravenous contrast. Images reviewed wi th bone, brain and subdural windows. Additional sagittal and coronal reconstructions were generated. Images stored on PACS. All CT scanners at this facility use dose modulation, iterative reconstruction, and/or weight based d osing when appropriate to reduce radiation dose to as low as reasonably achievable (ALARA). [facility]: Dose Right [facility]: CareDose [facility]: Dose Right [facility]: Teradose 4D [facility]: Monetate RADIATION DOSE: CT Rad equipment meets quality standard of care and radiation dose reduction techniq ues were employed. CTDIvol: 53.2 mGy. DLP: 1070 mGy-cm. mGy. LIMITATIONS: None. FINDINGS: VENTRICLES: Normal size and contour. CEREBRUM: No masses. No hemorrhage. No midline shift. No evidence for acute infarction. Normal gra y/white matter differentiation. No areas of low density in the white matter. CEREBELLUM: No masses. No hemorrhage. No alteration of density. No evidence for acute infarction. EXTRAAXIAL SPACES: No fluid collections. No masses. ORBITS AND GLOBE: No intra- or extraconal masses. Normal contour of globe without masses. CALVARIUM: No fracture. PARANASAL SINUSES: Mucus or serous retention cyst floor left maxillary sinus SOFT TISSUES: No mass or hematoma. OTHER: No other significant finding. IMPRESSION: No acute findings EVIDENCE OF ACUTE STROKE: NO. COMMENT: Quality ID # [id number]: Final reports with documentation of one or more dose reduction techniques (e.g., Automated exposure control, adjustment of the mA and/or kV according to patient size, use of iterative reconstruction technique) TECHNICAL DOCUMENTATION: JOB ID: [id number] [email or web address]- All Rights Reserved Reading location - IP/workstation name: [email or web address]
--- NOTE | 2017-09-25 13:48 | RADIOLOGY REPORT (SQ) ---
EXAM DESCRIPTION: CHEST 2 VIEWS COMPLETED DATE/TIME: 09/25/2017 1:13 pm REASON FOR STUDY: CP SOB COMPARISON: CT chest 09/04/2017 AP chest 10/28/2016 EXAM PARAMETERS: NUMBER OF VIEWS: two views TECHNIQUE: Digital Frontal and Lateral radiographic views of the chest acquired. RADIATION DOSE: NA LIMITATIONS: none FINDINGS: LUNGS AND PLEURA: No opacities, masses or pneumothorax. No pleural effusion. MEDIASTINUM AND HILAR STRUCTURES: No masses or contour abnormalities. HEART AND VASCULAR STRUCTURES: Heart normal size. No evidence for failure. BONES: No acute findings. HARDWARE: None in the chest. OTHER: No other significant finding. IMPRESSION: NO ACUTE RADIOGRAPHIC FINDING IN THE CHEST. TECHNICAL DOCUMENTATION: JOB ID: [id number] [email or web address]- All Rights Reserved Reading location - IP/workstation name: [email or web address]
[2017-09-25 13:49] VITALS: BP 122/79
[2017-09-25] MEDS ORDERED: POTASSIUM CHLORIDE 10 MEQ CAPSULE.ER PO ONE (14:08)
--- NOTE | 2017-09-25 20:24 | EKG REPORT ---
SEVERITY:- BORDERLINE ECG - SINUS RHYTHM BORDERLINE T WAVE ABNORMALITIES : Confirmed by: Katie Larson MD 25-Sep-2017 20:24:04
== END 2017-09-25 14:36 | disposition home or self-care (01) ==
LOC: ER 11:45
DX: R07.9 Chest pain, unspecified (principal); R20.0 Anesthesia of skin; Z87.891 Personal history of nicotine dependence
CPT/HCPCS: 36415; 70450; 71046; 80048; 84484; 85025; 93005; 93010; 99285

== ENCOUNTER 2017-11-04 00:24 | Emergency (ER) | payer SELFPAY ==
[2017-11-04] MEDS ORDERED: ASPIRIN 81 MG TABLET, CHEWABLE PO ONE (00:32)
[2017-11-04] MEDS ORDERED: PANTOPRAZOLE SODIUM 40 MG VIAL IV ONE (00:47)
--- NOTE | 2017-11-04 00:48 | ER Document Report ---
ED Cardiac - General Mode of Arrival: Ambulatory Information source: Patient TRAVEL OUTSIDE OF THE [place] IN LAST 30 DAYS: No <BUSHRA DORSEY - Last Filed: 11/04/17 01:40> <ARTURO LOZANO - Last Filed: 11/04/17 05:59> - General Chief Complaint: Chest Pain Stated Complaint: CHEST PAIN Time Seen by Provider: 11/04/17 00:32 Notes: Patient is a 42-year-old male that presents to the emergency department today with complaints of chest pain. Patient states he has had chest pain in the past but this is "different". Patient states he feels like he has something "really heavy pushing down" on his chest. Patient states that his chest pain was 10/10 when picked up by EMS and he had no relief with nitro given by EMS. Patient states he vomited secondary to pain and it hurts to breathe as well. Patient denies a history of coronary artery disease or a family history of coronary artery disease, he does not take any medications, and he has no history of PE/DVT. (BUSHRA DORSEY) - Related Data Allergies/Adverse Reactions: No Known Allergies Allergy (Verified 09/25/17 12:28) Past Medical History - General Information source: Patient - Social History Smoking Status: Never Smoker Cigarette use (# per day): No Frequency of alcohol use: None Drug Abuse: None Lives with: Family Family History: Reviewed & Not Pertinent Past Surgical History: Reports: Hx Tonsillectomy <BUSHRA DOSREY - Last Filed: 11/04/17 01:40> Review of Systems - Review of Systems Constitutional: No symptoms reported EENT: No symptoms reported Cardiovascular: See HPI, Chest pain Respiratory: See HPI, Hurts to breathe Gastrointestinal: See HPI, Vomiting Genitourinary: No symptoms reported Male Genitourinary: No symptoms reported Musculoskeletal: No symptoms reported Skin: No symptoms reported Hematologic/Lymphatic: No symptoms reported Neurological/Psychological: No symptoms reported -: Yes All other systems reviewed and negative <BUSHRA DORSEY - Last Filed: 11/04/17 01:40> Physical Exam <BUSHRA DORSEY - Last Filed: 11/04/17 01:40> <ARTURO LOZANO - Last Filed: 11/04/17 05:59> - Vital signs Vitals: Pulse Ox 97 11/04/17 00:32 - Notes Notes: Physical Exam: General: Alert, obese. HEENT: Normocephalic. Atraumatic. PERRL. Extraocular movements intact. Oropharynx clear. Neck: Supple. Non-tender. Respiratory: No respiratory distress. Clear and equal breath sounds bilaterally. Anterior chest wall tenderness, reproducible pain with moving/ bretahing. Cardiovascular: Regular rate and rhythm. Abdominal: Obese. Non-tender. No distension. Normal Bowel Sounds. Back: Non-tender. No deformity or step off. Extremities: Moves all four extremities. Upper extremities: Normal inspection. Normal ROM. Lower extremities: Normal inspection. No edema. Normal ROM. Neurological: Normal cognition. AAOx4. Normal speech. Psychological: Normal affect. Normal Mood. Skin: Warm. Dry. Normal color. (BUSHRA DORSEY) Course - Laboratory Result Diagrams: 11/04/17 00:45 11/04/17 00:45 <BUSHRA DORSEY - Last Filed: 11/04/17 01:40> - Laboratory Result Diagrams: 11/04/17 00:45 11/04/17 00:45 - Diagnostic Test Radiology reviewed: Image reviewed, Reports reviewed - EKG Interpretation by Mi EKG shows normal: Sinus rhythm Rate: Normal Rhythm: NSR <ARTURO LOZANO - Last Filed: 11/04/17 05:59> - Re-evaluation Re-evalutation: 11/04/17 01:30 No relief from Protonix 11/04/17 05:55 Patient is a 42-year-old male who came in for chest pain. Is reproducible. Patient is got hypokalemia, some elevation of liver enzymes consistent with alcohol use and fatty liver on ultrasound. No acute findings on CTA. No acute findings on ultrasound. No acute findings on chest x-ray. Troponin negative 2. Patient is feeling better with GI cocktail. He had a potassium of 3 and that has been replaced. Will be discharged home and is to follow-up with his doctor. He is to stop drinking alcohol. We discharged home with medications for esophagitis/gastritis. Patient is agreeable to this plan. Stable for discharge. (ARTURO LOZANO) - Vital Signs Vital signs: Temp Pulse Resp BP Pulse Ox 97 11/04/17 00:32 - Laboratory Laboratory results interpreted by me: 11/04/17 11/04/17 11/04/17 00:45 00:45 01:45 RBC 3.97 L MCV 103 H MCH 35.5 H RDW 17.0 H Plt Count 146 L Potassium 3.0 L* Chloride 95 L Glucose 141 H Total Bilirubin 1.5 H Direct Bilirubin 0.5 H AST 176 H ALT 95 H Urine Urobilinogen 4.0 H Discharge <BUSHRA DORSEY - Last Filed: 11/04/17 01:40> <ARTURO LOZANO - Last Filed: 11/04/17 05:59> - Discharge Clinical Impression: Atypical chest pain, Hypokalemia Condition: Stable Disposition: HOME, SELF-CARE Instructions: Chest Pain of Unclear Cause ([facility]), Hypokalemia ([facility]) Prescriptions: Omeprazole 20 mg PO DAILY #60 capsule. Sucralfate [Carafate 1 gm Tablet] 1 gm PO ACHS #120 tablet Forms: Smoking Cessation Education Referrals: KWAME RICHARDSON MD [Primary Care Provider] - Follow up in 3-5 days Scribe Attestation: 11/04/17 05:59 I personally performed the services described in the documentation, reviewed and edited the documentation which was dictated to the scribe in my presence, and it accurately records my words and actions. (ARTURO LOZANO) Scribe Documentation - Scribe Written by Scribe:: Germain Rogers, 11/04/2017 0105 acting as scribe for :: Kuldeep <BUSHRA DORSEY - Last Filed: 11/04/17 01:40>
[2017-11-04 01:06] LABS: ABSOLUTE BASOPHILS # (AUTO) 0.1 10^3/uL (0.0-0.2); ABSOLUTE EOSINOPHILS # (AUTO) 0.2 10^3/uL (0.0-0.6); ABSOLUTE LYMPHOCYTES (AUTO) 1.2 10^3/uL (0.5-4.7); ABSOLUTE MONOCYTES (AUTO) 0.3 10^3/uL (0.1-1.4); ABSOLUTE NEUT (AUTO) 3.5 10^3/uL (1.7-8.2); BASOPHILS % (AUTO) 1.7 % (0-2); HEMATOCRIT 40.8 % (37.9-51.0); HEMOGLOBIN 14.1 g/dL (13.5-17.0); LYMPHOCYTES % (AUTO) 21.9 % (13-45); MEAN CORPUSCULAR HEMOGLOBIN 35.5 pg (27.0-33.4); MEAN CORPUSCULAR HGB CONC 34.5 g/dL (32.0-36.0); MEAN CORPUSCULAR VOLUME 103 fl (80-97); MONOCYTES % (AUTO) 6.6 % (3-13); PLATELET COUNT 146 10^3/uL (150-450); RED BLOOD COUNT 3.97 10^6/uL (4.35-5.55); SEGMENTED NEUTROPHILS % (AUTO) 66.8 % (42-78); TOTAL CELLS COUNTED % (AUTO) 100 %; WHITE BLOOD COUNT 5.3 10^3/uL (4.0-10.5)
[2017-11-04 01:10] LABS: ALANINE AMINOTRANSFERASE 95 U/L (21-72); ALBUMIN 3.7 g/dL (3.5-5.0); ALKALINE PHOSPHATASE 105 U/L (38-126); ANION GAP 13 (5-19); ASPARTATE AMINO TRANSFERASE 176 U/L (17-59); BILIRUBIN,DIRECT 0.5 mg/dL (0.0-0.4); BILIRUBIN,TOTAL 1.5 mg/dL (0.2-1.3); BLOOD UREA NITROGEN 8 mg/dL (7-20); CALCIUM 8.4 mg/dL (8.4-10.2); CARBON DIOXIDE 30 mmol/L (22-30); CHLORIDE 95 mmol/L (98-107); CREATINE KINASE 170 U/L (55-170); GLUCOSE 141 mg/dL (75-110); SODIUM 138.1 mmol/L (137-145); TOTAL PROTEIN 6.7 g/dL (6.3-8.2)
[2017-11-04 01:11] LABS: ALCOHOL < 10 mg/dL (NONE DETECTED)
[2017-11-04 01:12] LABS: PROTHROMBIN TIME 13.7 SEC (11.4-15.4)
[2017-11-04 01:21] LABS: CREATINE KINASE MB 0.81 ng/mL (<4.55)
[2017-11-04 01:22] LABS: TROPONIN I < 0.012 ng/mL
[2017-11-04] MEDS ORDERED: FENTANYL CITRATE INJ/PF 100 MCG/2 ML AMPUL IV ONE ×2 (01:29→03:28)
[2017-11-04] MEDS ORDERED: ONDANSETRON HCL INJ/PF 4 MG/2 ML SDV IV ONE (01:29)
--- NOTE | 2017-11-04 02:05 | RADIOLOGY REPORT (SQ) ---
EXAM DESCRIPTION: XR CHEST 1 VIEW COMPLETED DATE/TME: 11/04/2017 00:32 CLINICAL HISTORY: 42 years Male, CP COMPARISON: 7.9.18. CT 6..18 NUMBER OF VIEWS/TECHNIQUE: 1/AP FINDINGS: Adequate lung volume, clear parenchyma, normal cardiac silhouette, and intact bony thorax. IMPRESSION: No acute cardiopulmonary findings.
[2017-11-04 02:08] LABS: APPEARANCE,URINE CLEAR; BILIRUBIN,URINE NEGATIVE (NEGATIVE); COLOR,URINE YELLOW; GLUCOSE, URINE NEGATIVE (NEGATIVE); KETONES,URINE NEGATIVE (NEGATIVE); LEUKOCYTE ESTERASE,URINE NEGATIVE (NEGATIVE); NITRITE,URINE NEGATIVE (NEGATIVE); PROTEIN,URINE NEGATIVE (NEGATIVE); URINE SPECIFIC GRAVITY 1.008
[2017-11-04] MEDS: POTASSI CL 20 MEQ/50 ML RIDER 20 MEQ/50 ML RTUPB IV SCH ×2 (02:39→06:29)
--- NOTE | 2017-11-04 03:14 | RADIOLOGY REPORT (SQ) ---
EXAM DESCRIPTION: CT CHEST ANGIOGRAPHY WITHOUT THEN WITH IV CONTRAST COMPLETED DATE/TME: 11/04/2017 01:47 CLINICAL HISTORY: 42 years, Male, pleuritic chest pain, evaluate for PE COMPARISON: None. TECHNIQUE: Axial CT images of the chest were obtained after the administration of IV contrast. MPR and MIP reconstructions were performed. DLP 1500 Images stored on PACS. All CT scanners at this facility use dose modulation, iterative reconstruction, and/or weight based dosing when appropriate to reduce radiation dose to as low as reasonably achievable (ALARA). [facility]: Dose Right [facility]: CareDose [facility]: Dose Right [facility]: Teradose 4D [facility]: WebVisible LIMITATIONS: None. FINDINGS: Upper abdomen: Partially imaged. Fatty liver. Thoracic aorta: Unremarkable. Heart: No right atrial thrombus. RV/LV ratio: Within normal limits. Pulmonary arteries: Technical: Adequate opacification to the level of the segmental vessels. Pulmonary embolus: No low-density filling defect to suggest acute PE. Overall embolic burden: None. Mediastinum: No pathologic sized middle mediastinal lymphadenopathy. Tracheobronchial tree: Unremarkable. Lungs: Lobar consolidation: Negative. Pleural effusion: Negative. Pneumothorax: Negative. Other: Negative. Bones: Unremarkable. IMPRESSION: No evidence of acute PE. Fatty liver TECHNICAL DOCUMENTATION: Quality ID # [id number]: Final reports with documentation of one or more dose reduction techniques (e.g., Automated exposure control, adjustment of the mA and/or kV according to patient size, use of iterative reconstruction technique) 2010 [employer]- All Rights Reserved
[2017-11-04] MEDS ORDERED: SUCRALFATE 1 GM TABLET PO ONE (05:34)
[2017-11-04] MEDS ORDERED: DICYCLOMINE HCL 20 MG TABLET PO ONE (05:35)
--- NOTE | 2017-11-04 05:41 | RADIOLOGY REPORT (SQ) ---
Ultrasound right upper quadrant on 11/04/2017 at 5:02 AM CLINICAL INDICATION: Chest pain COMPARISON: CT chest and upper abdomen from 11/04/2017 FINDINGS: Multiple sonographic images are obtained throughout the right upper quadrant, both transverse and sagittal images are obtained. Limited visualized pancreas is unremarkable. There is increased echogenicity in the liver consistent with fatty infiltration. No focal liver lesion is noted. There are no gallstones, gallbladder wall thickening or pericholecystic fluid. Right kidney shows no hydronephrosis. Common duct measures 3 mm which is within normal limits mitigating against obstruction of the biliary tree. IMPRESSION: Fatty infiltration of the liver, otherwise unremarkable.
[2017-11-04] MEDS ORDERED: MAG HYDROX/AL HYDROX/SIMETH SUSP 30 ML UDCUP PO ONE (05:49)
--- NOTE | 2017-11-04 07:16 | EKG REPORT ---
SEVERITY:- ABNORMAL ECG - SINUS RHYTHM BORDERLINE T WAVE ABNORMALITIES PROLONGED QT INTERVAL : Confirmed by: Anthony Stevenson MD 04-Nov-2017 07:15:52
[2017-11-04 07:42] VITALS: BP 167/99
== END 2017-11-04 07:47 | disposition home or self-care (01) ==
LOC: ER 00:24
DX: R07.89 Other chest pain (principal); R07.1 Chest pain on breathing; E87.6 Hypokalemia; K76.0 Fatty (change of) liver, not elsewhere classified; R11.10 Vomiting, unspecified; E66.9 Obesity, unspecified
CPT/HCPCS: 93005; 96376; 99285; 96375; 96365; 96366; 36415; 82553; 80307; 82550; 83690; 85025; 85610; 80053; 81001; 84484; 71045; 76705; 71275; 93010; J3490; J3010; S0164; J2405; J3480

== ENCOUNTER 2018-06-06 00:37 | Emergency (ER) | payer SELFPAY ==
[2018-06-06] MEDS ORDERED: MORPHINE SULFATE 10 MG/ML INJ IV ONE (00:49)
[2018-06-06] MEDS ORDERED: NORMAL SALINE 1000 ML 1,000 ML IV ONE ×3 (00:49→06:44)
[2018-06-06] MEDS ORDERED: ONDANSETRON HCL INJ/PF 4 MG/2 ML SDV IV ONE (00:49)
--- NOTE | 2018-06-06 00:51 | ER Document Report ---
ED GI/ - General Stated Complaint: VOMITING Time Seen by Provider: 06/06/18 00:43 Primary Care Provider: KWAME RICHARDSON MD [Primary Care Provider] - 06/08/18 Notes: Patient is a 42-year-old male that comes emergency department for chief complaint of abdominal pain and vomiting. He states that he started having abdominal pain almost a week ago, he has been vomiting for the past 3 days unable to keep anything down reportedly, he states that prior to arrival he had some blood in his vomit (a tablespoon or so of blood mixed in with stomach acid reportedly). He denies black or bloody stools, had a normal bowel movement within the past day. He denies any daily medications, surgeries. He drinks alcohol but denies daily use, he denies smoking or recreational drugs. TRAVEL OUTSIDE OF THE [place] IN LAST 30 DAYS: No - Related Data Allergies/Adverse Reactions: No Known Allergies Allergy (Verified 09/25/17 12:28) Past Medical History - General Information source: Patient - Social History Smoking Status: Never Smoker Smoking Education Provided: Yes - <3 min Frequency of alcohol use: Social Drug Abuse: None Lives with: Family Family History: Reviewed & Not Pertinent - Past Medical History Cardiac Medical History: Denies: Hx Coronary Artery Disease, Hx Heart Attack Renal/ Medical History: Denies: Hx Peritoneal Dialysis Past Surgical History: Reports: Hx Tonsillectomy. Denies: Hx Abdominal Surgery - Immunizations Immunizations up to date: Yes Hx Diphtheria, Pertussis, Tetanus Vaccination: Yes Review of Systems - Review of Systems Constitutional: No symptoms reported EENT: No symptoms reported Cardiovascular: No symptoms reported Respiratory: No symptoms reported Gastrointestinal: See HPI Genitourinary: No symptoms reported Male Genitourinary: No symptoms reported Musculoskeletal: No symptoms reported Skin: No symptoms reported Hematologic/Lymphatic: No symptoms reported Neurological/Psychological: No symptoms reported Physical Exam - Vital signs Vitals: Temp Pulse Resp BP Pulse Ox 97.8 F 105 H 20 164/95 H 94 06/06/18 00:51 06/06/18 00:51 06/06/18 00:51 06/06/18 00:51 06/06/18 00:51 - Notes Notes: GENERAL: Somewhat disheveled and appears mildly uncomfortable HEAD: Normocephalic, atraumatic. EYES: Pupils equal, round, and reactive to light. Extraocular movements intact. ENT: Oral mucosa very dry, tongue midline. Oropharynx unremarkable. Airway patent. Nares patent, no nasal septal hematoma, TM's intact. NECK: Full range of motion. Supple. Trachea midline. LUNGS: Clear to auscultation bilaterally, no wheezes, rales, or rhonchi. No respiratory distress. HEART: Borderline tachycardic, normal rhythm, no murmur ABDOMEN: There is generalized tenderness in the upper abdomen and generalized tenderness in the lower abdomen. Nonspecific. No rigidity or guarding. GENITOURINARY: Deferred EXTREMITIES: Moves all 4 extremities spontaneously. No edema, normal radial and dorsalis pedis pulses bilaterally. No cyanosis. BACK: no cervical, thoracic, lumbar midline tenderness. No saddle anesthesia, normal distal neurovascular exam. NEUROLOGICAL: Alert and oriented x3. Normal speech. [cranial nerves II through XII grossly intact]. PSYCH: Normal affect, normal mood. SKIN: Warm, dry, normal turgor. No rashes or lesions noted. Course - Re-evaluation Re-evalutation: CBC unremarkable. Chemistry showing elevated LFTs, elevated bilirubin increased from prior, borderline lipase at 600. Patient has both upper and lower abdominal pain on exam. Ultrasound was performed of the upper abdomen, no overt abnormalities but study was limited by patient's body habitus. Urinalysis obtained, indicates infection. No history of kidney stones. I discussed with patient, he states he does have urinary frequency and discomfort. CT was performed to rule out obstructive ureterolithiasis, this was negative for acute findings other than possible cystitis. Patient given Rocephin. Given additional fluids, will recheck chemistry to trend, patient appears improved, possibly going home. 06/06/18 06:45 Patient vomited. He tells me this is the second time he has started since he has been here although he did not tell me about this previously. He did appear much better and he was asking for fluids and he was drinking these before he was getting the pills to go home. Patient drinks alcohol occasionally, states he takes a lot of Motrin, I do suspect a gastritis component along with a urinary tract infection. He does not have focal right upper quadrant tenderness suggesting CBD obstruction or acute abdomen, I have a higher suspicion of elevated bilirubin being from vomiting. Discussed with patient. Discussed patient, workup, plan with Dr. Flores. Decision was made to give him IM Phenergan and try GI cocktail. 06/06/18 07:50 Patient has been reevaluated again. After the Phenergan and a GI cocktail patient states he feels much better, heartburn is gone, he has tolerated p.o. without any difficulty since, he states he is ready to go home. He is with his mother and he lives with his fiance, they will be able to watch him reportedly, he also has primary care which she can follow-up with closely. I discussed return precautions in detail with patient and mother. They state understanding and agreement with plan. - Vital Signs Vital signs: Temp Pulse Resp BP Pulse Ox 97.8 F 105 H 20 167/95 H 94 06/06/18 00:51 06/06/18 00:51 06/06/18 00:51 06/06/18 07:01 06/06/18 07:01 - Laboratory Result Diagrams: 06/06/18 00:44 06/06/18 05:47 Laboratory results interpreted by me: 06/06/18 06/06/18 06/06/18 00:44 00:44 01:30 MCV 99 H MCH 35.0 H RDW 19.5 H Plt Count 117 L Seg Neutrophils % 84.0 H Lymphocytes % 8.8 L Sodium 136.3 L Potassium 3.4 L Chloride 93 L Glucose 172 H Total Bilirubin 3.7 H Direct Bilirubin 2.3 H AST 259 H ALT 77 H Alkaline Phosphatase 201 H Total Protein 8.5 H Lipase 615.6 H Urine Protein 100 H Urine Glucose (UA) 50 H Urine Ketones TRACE H Urine Blood MODERATE H Urine Bilirubin MODERATE H Urine Urobilinogen 4.0 H Ur Leukocyte Esterase MODERATE H 06/06/18 05:47 MCV MCH RDW Plt Count Seg Neutrophils % Lymphocytes % Sodium Potassium 3.1 L Chloride 96 L Glucose 154 H Total Bilirubin 3.7 H Direct Bilirubin 2.4 H AST 193 H ALT Alkaline Phosphatase 173 H Total Protein Lipase Urine Protein Urine Glucose (UA) Urine Ketones Urine Blood Urine Bilirubin Urine Urobilinogen Ur Leukocyte Esterase Discharge - Discharge Clinical Impression: Dehydration Abdominal pain Qualifiers: Abdominal location: generalized Qualified Code(s): R10.84 - Generalized abdominal pain Vomiting Qualifiers: Vomiting type: unspecified Vomiting Intractability: non-intractable Nausea presence: with nausea Qualified Code(s): R11.2 - Nausea with vomiting, unspecified Urinary tract infection Qualifiers: Urinary tract infection type: site unspecified Hematuria presence: without hematuria Qualified Code(s): N39.0 - Urinary tract infection, site not specified Condition: Stable Disposition: HOME, SELF-CARE Additional Instructions: Your symptoms and examination indicate gastritis/esophagitis (inflammation of your upper gastrointestinal tract). You also have a urinary tract infection. Take Keflex antibiotic. Take Phenergan for nausea, take Carafate and Pepcid as prescribed to help treat this, you can take additional Rolaids, Tums, Maalox, etc. if needed. You can take Tylenol for pain but avoid NSAIDs (ibuprofen/Motrin, naproxen/Aleve, Aspirin, BC powder, etc), alcohol, smoking, caffeine, spicy food. Start with clear fluids, progress to bland diet. Follow-up with primary care for additional evaluation and treatment including possible H. pylori testing. Return if you worsen including uncontrolled vomiting, vomiting blood, black stools, severe pain, fever/chills, or any other concerning or worsening symptoms. Prescriptions: Cephalexin Monohydrate [Keflex 500 mg Capsule] 500 mg PO BID #14 capsule Famotidine [Pepcid 20 mg Tablet] 20 mg PO BID #14 tablet Promethazine HCl [Phenergan 25 mg Tablet] 25 mg PO Q6H PRN #20 tablet PRN Reason: Sucralfate [Carafate 1 gm Tablet] 1 gm PO QID #20 tablet Referrals: KWAME RICHARDSON MD [Primary Care Provider] - 06/08/18
[2018-06-06 01:05] LABS: ABSOLUTE BASOPHILS # (AUTO) 0.1 10^3/uL (0.0-0.2); ABSOLUTE LYMPHOCYTES (AUTO) 0.9 10^3/uL (0.5-4.7); ABSOLUTE MONOCYTES (AUTO) 0.6 10^3/uL (0.1-1.4); ABSOLUTE NEUT (AUTO) 8.2 10^3/uL (1.7-8.2); BASOPHILS % (AUTO) 0.7 % (0-2); EOSINOPHILS % (AUTO) 0.1 % (0-6); HEMATOCRIT 43.8 % (37.9-51.0); HEMOGLOBIN 15.4 g/dL (13.5-17.0); LYMPHOCYTES % (AUTO) 8.8 % (13-45); MEAN CORPUSCULAR HGB CONC 35.2 g/dL (32.0-36.0); MEAN CORPUSCULAR VOLUME 99 fl (80-97); MONOCYTES % (AUTO) 6.4 % (3-13); PLATELET COUNT 117 10^3/uL (150-450); RED BLOOD COUNT 4.41 10^6/uL (4.35-5.55); RED CELL DISTRIBUTION WIDTH 19.5 % (11.5-14.0); TOTAL CELLS COUNTED % (AUTO) 100 %; WHITE BLOOD COUNT 9.8 10^3/uL (4.0-10.5)
[2018-06-06 01:15] LABS: ALANINE AMINOTRANSFERASE 77 U/L (21-72); ALBUMIN 4.1 g/dL (3.5-5.0); ALKALINE PHOSPHATASE 201 U/L (38-126); ANION GAP 18 (5-19); ASPARTATE AMINO TRANSFERASE 259 U/L (17-59); BILIRUBIN,DIRECT 2.3 mg/dL (0.0-0.4); BILIRUBIN,TOTAL 3.7 mg/dL (0.2-1.3); BLOOD UREA NITROGEN 9 mg/dL (7-20); CALCIUM 9.4 mg/dL (8.4-10.2); CARBON DIOXIDE 25 mmol/L (22-30); CHLORIDE 93 mmol/L (98-107); GLUCOSE 172 mg/dL (75-110); LIPASE 615.6 U/L (23-300); POTASSIUM 3.4 mmol/L (3.6-5.0); SODIUM 136.3 mmol/L (137-145); TOTAL PROTEIN 8.5 g/dL (6.3-8.2)
[2018-06-06 02:11] LABS: APPEARANCE,URINE SLIGHTLY-CLOUDY; BILIRUBIN,URINE MODERATE (NEGATIVE); COLOR,URINE AMBER; GLUCOSE, URINE 50 mg/dL (NEGATIVE); KETONES,URINE TRACE mg/dL (NEGATIVE); LEUKOCYTE ESTERASE,URINE MODERATE (NEGATIVE); NITRITE,URINE NEGATIVE (NEGATIVE); PROTEIN,URINE 100 mg/dL (NEGATIVE); URINE SPECIFIC GRAVITY 1.041
[2018-06-06] MEDS ORDERED: HYDROMORPHONE HCL INJ/PF 2 MG/ML AMPULE IV ONE (02:36)
[2018-06-06] MEDS ORDERED: CEFTRIAXONE 1 GM/D5W RTU 1 GM/50 ML RTUPB IV ONE (02:37)
--- NOTE | 2018-06-06 03:00 | RADIOLOGY REPORT (SQ) ---
EXAM DESCRIPTION: US ABDOMEN LIMITED COMPLETED DATE/TME: 06/06/2018 01:35 CLINICAL HISTORY: 42 years, Male, vomiting, abdominal pain, elevated bili and LFTs TECHNIQUE: Grayscale and Doppler sonogram of the right upper quadrant abdomen. COMPARISON: None. FINDINGS: Pancreas: Not visualized due to bowel gas. Aorta: Visualized portion is unremarkable. IVC: Visualized portion is unremarkable. Liver: Homogenous echotexture. No mass lesion. Main portal vein: Normal hepatopetal flow. Gallbladder: No gallstones. No gallbladder wall thickening. Common bile duct: Not visualized. Right kidney: 11.2 cm. No hydronephrosis. No nephrolithiasis. IMPRESSION: Difficult study due to patient body habitus and bowel gas. No acute sonographic abnormalities are identified.
--- NOTE | 2018-06-06 04:06 | RADIOLOGY REPORT (SQ) ---
EXAM DESCRIPTION: CT ABDOMEN PELVIS WITHOUT IV CONTRAST COMPLETED DATE/TME: 06/06/2018 02:37 CLINICAL HISTORY: 42 years, Male, abd pain, UTI, vomiting Comparison: None TECHNIQUE: Contiguous axial CT images of the abdomen and pelvis were obtained. Sagittal and coronal reformats were reviewed. This exam was performed according to our departmental dose-optimization program, which includes automated exposure control, adjustment of the mA and/or kV according to patient size and/or use of iterative reconstruction technique. FINDINGS: Lung bases: Clear. Liver:Diffuse low-attenuation throughout the liver consistent with hepatocellular disease/fatty infiltration. No focal liver lesion seen. Gallbladder:Unremarkable. No gallstones. No gallbladder wall thickening or pericholecystic fluid. Spleen:Unremarkable Pancreas: Pancreas is unremarkable. Adrenal glands:Within normal limits. Kidneys/ureters:Within normal limits Stomach/small bowel/colon: Stomach is unremarkable. Small bowel is unremarkable. Colonic diverticulosis without evidence of diverticulitis. Appendix: Appendix not seen with certainty. However, no inflammatory changes or fluid seen in the pericecal region and right lower quadrant. Peritoneum: No free fluid. Vascular structures: within normal limits Lymph nodes: No abnormal lymph nodes. Bladder:Mild bladder wall thickening which maybe from underdistention, chronic outlet obstruction or infectious cystitis. Pelvic organs: No acute abnormality Bones: No acute osseous abnormality. Soft tissues: Unremarkable.. IMPRESSION: No acute intra-abdominal abnormality.
[2018-06-06] MEDS ORDERED: FAMOTIDINE 20 MG TABLET PO ONE (05:55)
[2018-06-06] MEDS ORDERED: SUCRALFATE 1 GM TABLET PO ONE (05:55)
[2018-06-06] MEDS ORDERED: PROMETHAZINE HCL 25 MG TABLET PO ONE (05:55)
[2018-06-06 06:37] LABS: ALANINE AMINOTRANSFERASE 70 U/L (21-72); ALBUMIN 3.5 g/dL (3.5-5.0); ALKALINE PHOSPHATASE 173 U/L (38-126); ANION GAP 16 (5-19); ASPARTATE AMINO TRANSFERASE 193 U/L (17-59); BILIRUBIN,DIRECT 2.4 mg/dL (0.0-0.4); BILIRUBIN,TOTAL 3.7 mg/dL (0.2-1.3); BLOOD UREA NITROGEN 8 mg/dL (7-20); CALCIUM 8.8 mg/dL (8.4-10.2); CARBON DIOXIDE 27 mmol/L (22-30); CHLORIDE 96 mmol/L (98-107); GLUCOSE 154 mg/dL (75-110); POTASSIUM 3.1 mmol/L (3.6-5.0); SODIUM 139.3 mmol/L (137-145); TOTAL PROTEIN 6.9 g/dL (6.3-8.2)
[2018-06-06] MEDS ORDERED: LIDOCAINE 2% VISCOUS SOLN 20 ML UDCUP PO ONE (06:42)
[2018-06-06] MEDS ORDERED: PROMETHAZINE HCL INJ 25 MG/1 ML VIAL IM ONE (06:42)
[2018-06-06] MEDS ORDERED: MAG HYDROX/AL HYDROX/SIMETH SUSP 30 ML UDCUP PO ONE (06:42)
[2018-06-06] MEDS ORDERED: METOCLOPRAMIDE HCL ORAL SOLN 10 MG/10 ML UDCUP PO ONE (06:42)
[2018-06-06] MEDS ORDERED: HYDROCODONE/ACETAMINOPHEN 5-325 MG (6 TAB/ER DISP) PO PRN (07:50)
[2018-06-06] MEDS ORDERED: ONDANSETRON ODT 4 MG TAB (6 TAB/ER DISP) PO PRN (07:50)
[2018-06-06 08:03] VITALS: BP 150/88
== END 2018-06-06 08:06 | disposition home or self-care (01) ==
LOC: ER 00:37
DX: N39.0 Urinary tract infection, site not specified (principal); R11.2 Nausea with vomiting, unspecified; R10.84 Generalized abdominal pain; E86.0 Dehydration; R10.9 Unspecified abdominal pain; R00.0 Tachycardia, unspecified
CPT/HCPCS: 99284; 96372; 96361; 96375; 96365; 96366; 36415; 87086; 83690; 85025; 80053; 81001; 76705; 74176; J3490; J2270; J1170; J2550; J2405; J7030; J0696

== ENCOUNTER 2018-06-28 06:04 | Emergency (ER) | payer SELFPAY ==
[2018-06-28] MEDS ORDERED: NORMAL SALINE 1000 ML 1,000 ML IV ONE ×2 (06:23→10:57)
--- NOTE | 2018-06-28 06:23 | ER Document Report ---
ED Cardiac - General Stated Complaint: CHEST PAIN Time Seen by Provider: 06/28/18 06:08 Notes: This is an ill-appearing, minimally responsive 42-year-old male brought in by EMS for evaluation of status, chest pain. Blood pressure is high. Patient complaining of pain in the chest and abdomen. Also complaining of pain in the lower extremities. Numbness in lower extremities. States that he has been falling frequently. Denies any headache. Being a heavy drinker. Was seen recently and diagnosed with a "UTI" and started on some antibiotics. Had recent CT scan as well as recent ultrasound. TRAVEL OUTSIDE OF THE [place] IN LAST 30 DAYS: No - HPI Patient complains to provider of: Chest pain Use of: Alcohol Was the onset of pain: Gradual Quality of pain: Constant Chest pain radiation location: Back Severity now: Severe Severity at worst: Severe Pain level currently: 5 Cardiac risk factors: None Associated symptoms: Abdominal pain, Cool extremities, Diaphoresis - Related Data Allergies/Adverse Reactions: No Known Allergies Allergy (Verified 09/25/17 12:28) Past Medical History - General Information source: Patient, Relative - Social History Smoking Status: Smoker,Current Status Unk Frequency of alcohol use: Heavy Drug Abuse: None Lives with: Family Family History: Reviewed & Not Pertinent - Past Medical History Cardiac Medical History: Denies: Hx Coronary Artery Disease, Hx Heart Attack Renal/ Medical History: Denies: Hx Peritoneal Dialysis Past Surgical History: Reports: Hx Tonsillectomy. Denies: Hx Abdominal Surgery - Immunizations Immunizations up to date: Yes Hx Diphtheria, Pertussis, Tetanus Vaccination: Yes Review of Systems - Review of Systems Constitutional: Weakness. denies: Fever, Malaise EENT: Blurred vision. denies: Difficulty swallowing, Throat swelling Cardiovascular: Chest pain, Palpitations, Heart racing Respiratory: denies: Cough, Hurts to breathe, Short of breath, Wheezing Gastrointestinal: Abdominal pain. denies: Diarrhea, Nausea, Vomiting Genitourinary: Dysuria. denies: Discharge, Flank pain Musculoskeletal: Muscle pain. denies: Back pain, Joint pain Skin: denies: Dryness, Lesions, Lumps, Rash Hematologic/Lymphatic: denies: Anemia, Blood clots, Easy bleeding, Easy bruising Neurological/Psychological: Weakness, Numbness. denies: Confusion Physical Exam - Vital signs Vitals: Resp Pulse Ox 16 97 06/28/18 06:10 06/28/18 06:10 Interpretation: Hypertensive, Tachycardic Notes: In extremis - Notes Notes: Ill-appearing, diaphoretic - General General appearance: Appears well, Alert - HEENT Head: Normocephalic, Atraumatic Eyes: Normal Conjunctiva: Icteric Pupils: PERRL - Respiratory Respiratory status: No respiratory distress Chest status: Nontender Breath sounds: Normal Chest palpation: Normal - Cardiovascular Rhythm: Tachycardia Heart sounds: Normal auscultation Murmur: No - Abdominal Inspection: Normal Distension: No distension Bowel sounds: Normal Tenderness: Nontender Organomegaly: No organomegaly - Back Back: Normal, Nontender - Extremities General upper extremity: Normal inspection, Nontender, Normal color, Normal ROM, Normal temperature General lower extremity: Normal inspection, Nontender, Edema, Normal color, Normal ROM, Normal temperature. No: Jim's sign - Neurological Neuro grossly intact: Yes Cognition: Normal Orientation: AAOx4 Anthony Coma Scale Eye Opening: Spontaneous [place] Coma Scale Verbal: Oriented [place] Coma Scale Motor: Obeys Commands Anthony Coma Scale Total: 15 Speech: Normal Motor strength normal: LUE, RUE, LLE, RLE Sensory: Normal - Psychological Associated symptoms: Normal affect, Normal mood - Skin Skin Temperature: Warm Skin Moisture: Diaphoretic Skin Color: Normal Course - Re-evaluation Re-evalutation: 06/28/18 09:20 Patient seen immediately on arrival. Extremely elevated blood pressure. In the setting of chest pain definitely concerned about aortic dissection as his blood pressure was over 180/120. Upper and lower extremity blood pressures are equal. Heart rate was in the 120s-130s. Lopressor was given IV. Blood pressure came down nicely heart rate now down into the [address] scan ordered. No obvious dissection. Patient has extremely abnormal and enlarged liver with extremely elevated bilirubin, ammonia and extremely elevated lactate. Bolusing at this time with fluids. Getting a bedside ultrasound on the liver as well. Anticipate acute hepatitis versus alcoholic hepatitis with decompensated liver failure and uncontrolled hypertension. 06/28/18 09:52 Patient's blood pressure is coming down nicely after the Lopressor. I am giving him a second bolus of fluid to help with this lactate. CT scans did not show any significant pathology with his aorta. He does have extremely large liver. Ultrasound ordered. He has a massively enlarged liver so detail of the liver is difficult to obtain. More than likely patient has acute hepatitis versus acute on chronic hepatitis. Hepatitis panel has been ordered. Lactulose ordered for his elevated ammonia. I am going to consult with the hospitalist now for admission. I do not think that patient has an obstructive process in the liver which would require immediate GI intervention. More likely also patient is going into withdrawals so will start on Ativan. 06/28/18 09:53 11:25 AM General surgery has seen the patient and unlikely this represents appendicitis but does have significant amount of stranding. Recommend starting antibiotics which this has already been done. Patient is not a great candidate for surgery. More than likely surgeon feels patient is going to require intubation because of more than likely he is in florid alcohol withdrawal along with acute alcohol induced hepatitis versus viral hepatitis and cirrhosis. Severely elevated lactate so ordering 1/3 L of fluid and repeat lactic acid pending. Attempting to transfer patient at this time. Patient in very critical condition. 11:57 AM He has been accepted to the medical ICU at [facility] in [place], Dr. Raymundo accepting. Pending transport at this time. 1325 The patient remained stable for transport at this time. Laboratory 06/28/18 06/28/18 06/28/18 06:10 06:10 06:10 WBC 5.5 RBC 3.10 L Hgb 11.8 L Hct 33.5 L MCV 108 H D MCH 38.2 H MCHC 35.3 RDW 24.8 H Plt Count 118 L Seg Neutrophils % 80.8 H Lymphocytes % 9.9 L Monocytes % 8.7 Eosinophils % 0.3 Basophils % 0.3 Absolute Neutrophils 4.5 Absolute Lymphocytes 0.5 Absolute Monocytes 0.5 Absolute Eosinophils 0.0 Absolute Basophils 0.0 Platelet Comment DECREASED Anisocytosis 3+ Macrocytosis 3+ PT INR APTT VBG pH VBG pCO2 VBG HCO3 VBG Base Excess Sodium 136.6 L Potassium 3.7 Chloride 94 L Carbon Dioxide 22 Anion Gap 20 H BUN 6 L Creatinine 0.63 Est GFR ( Amer) > 60 Est GFR (Non-Af Amer) > 60 Glucose 231 H POC Glucose 233 H Lactic Acid Calcium 8.6 Total Bilirubin 6.0 H Direct Bilirubin 4.8 H Neonat Total Bilirubin Not Reportable Neonat Direct Bilirubin Not Reportable Neonat Indirect Bili Not Reportable AST 420 H ALT 147 H Alkaline Phosphatase 245 H Ammonia Creatine Kinase 108 CK-MB (CK-2) Troponin I Total Protein 7.4 Albumin 3.6 Lipase TSH Free T4 Urine Color Urine Appearance Urine pH Ur Specific [place] Urine Protein Urine Glucose (UA) Urine Ketones Urine Blood Urine Nitrite Urine Bilirubin Urine Urobilinogen Ur Leukocyte Esterase Urine WBC (Auto) Urine RBC (Auto) U Hyaline Cast (Auto) Squamous Epi Cells Auto Urine Mucus (Auto) Urine Ascorbic Acid Urine Opiates Screen Urine Methadone Screen Ur Barbiturates Screen Ur Phencyclidine Scrn Ur Amphetamines Screen U Benzodiazepines Scrn Urine Cocaine Screen U Marijuana (THC) Screen Serum Alcohol 67 Blood Type Antibody Screen 06/28/18 06/28/18 06/28/18 06:10 06:10 06:10 WBC RBC Hgb Hct MCV MCH MCHC RDW Plt Count Seg Neutrophils % Lymphocytes % Monocytes % Eosinophils % Basophils % Absolute Neutrophils Absolute Lymphocytes Absolute Monocytes Absolute Eosinophils Absolute Basophils Platelet Comment Anisocytosis Macrocytosis PT INR APTT VBG pH 7.34 VBG pCO2 45.3 VBG HCO3 23.6 VBG Base Excess -2.4 Sodium Potassium Chloride Carbon Dioxide Anion Gap BUN Creatinine Est GFR ( Amer) Est GFR (Non-Af Amer) Glucose POC Glucose Lactic Acid Cancelled Calcium Total Bilirubin Direct Bilirubin Neonat Total Bilirubin Neonat Direct Bilirubin Neonat Indirect Bili AST ALT Alkaline Phosphatase Ammonia Creatine Kinase CK-MB (CK-2) 0.85 Troponin I < 0.012 Total Protein Albumin Lipase TSH Free T4 Urine Color Urine Appearance Urine pH Ur Specific [place] Urine Protein Urine Glucose (UA) Urine Ketones Urine Blood Urine Nitrite Urine Bilirubin Urine Urobilinogen Ur Leukocyte Esterase Urine WBC (Auto) Urine RBC (Auto) U Hyaline Cast (Auto) Squamous Epi Cells Auto Urine Mucus (Auto) Urine Ascorbic Acid Urine Opiates Screen Urine Methadone Screen Ur Barbiturates Screen Ur Phencyclidine Scrn Ur Amphetamines Screen U Benzodiazepines Scrn Urine Cocaine Screen U Marijuana (THC) Screen Serum Alcohol Blood Type Antibody Screen 06/28/18 06/28/18 06/28/18 06:10 06:10 06:10 WBC RBC Hgb Hct MCV MCH MCHC RDW Plt Count Seg Neutrophils % Lymphocytes % Monocytes % Eosinophils % Basophils % Absolute Neutrophils Absolute Lymphocytes Absolute Monocytes Absolute Eosinophils Absolute Basophils Platelet Comment Anisocytosis Macrocytosis PT 15.2 INR 1.14 APTT 35.6 VBG pH VBG pCO2 VBG HCO3 VBG Base Excess Sodium Potassium Chloride Carbon Dioxide Anion Gap BUN Creatinine Est GFR ( Amer) Est GFR (Non-Af Amer) Glucose POC Glucose Lactic Acid Calcium Total Bilirubin Direct Bilirubin Neonat Total Bilirubin Neonat Direct Bilirubin Neonat Indirect Bili AST ALT Alkaline Phosphatase Ammonia 44.3 H Creatine Kinase CK-MB (CK-2) Troponin I Total Protein Albumin Lipase TSH 4.61 Free T4 1.41 Urine Color Urine Appearance Urine pH Ur Specific [place] Urine Protein Urine Glucose (UA) Urine Ketones Urine Blood Urine Nitrite Urine Bilirubin Urine Urobilinogen Ur Leukocyte Esterase Urine WBC (Auto) Urine RBC (Auto) U Hyaline Cast (Auto) Squamous Epi Cells Auto Urine Mucus (Auto) Urine Ascorbic Acid Urine Opiates Screen Urine Methadone Screen Ur Barbiturates Screen Ur Phencyclidine Scrn Ur Amphetamines Screen U Benzodiazepines Scrn Urine Cocaine Screen U Marijuana (THC) Screen Serum Alcohol Blood Type Antibody Screen 06/28/18 06/28/18 06/28/18 06:10 06:10 06:25 WBC RBC Hgb Hct MCV MCH MCHC RDW Plt Count Seg Neutrophils % Lymphocytes % Monocytes % Eosinophils % Basophils % Absolute Neutrophils Absolute Lymphocytes Absolute Monocytes Absolute Eosinophils Absolute Basophils Platelet Comment Anisocytosis Macrocytosis PT INR APTT VBG pH VBG pCO2 VBG HCO3 VBG Base Excess Sodium Potassium Chloride Carbon Dioxide Anion Gap BUN Creatinine Est GFR ( Amer) Est GFR (Non-Af Amer) Glucose POC Glucose Lactic Acid 10.3 H Calcium Total Bilirubin Direct Bilirubin Neonat Total Bilirubin Neonat Direct Bilirubin Neonat Indirect Bili AST ALT Alkaline Phosphatase Ammonia Creatine Kinase CK-MB (CK-2) Troponin I Total Protein Albumin Lipase 608.4 H TSH Free T4 Urine Color STACIE Urine Appearance SLIGHTLY-CLOUDY Urine pH 6.0 Ur Specific [place] 1.019 Urine Protein 100 H Urine Glucose (UA) 50 H Urine Ketones TRACE H Urine Blood NEGATIVE Urine Nitrite NEGATIVE Urine Bilirubin MODERATE H Urine Urobilinogen 4.0 H Ur Leukocyte Esterase NEGATIVE Urine WBC (Auto) 8 Urine RBC (Auto) 1 U Hyaline Cast (Auto) 151 Squamous Epi Cells Auto 1 Urine Mucus (Auto) MANY Urine Ascorbic Acid NEGATIVE Urine Opiates Screen Urine Methadone Screen Ur Barbiturates Screen Ur Phencyclidine Scrn Ur Amphetamines Screen U Benzodiazepines Scrn Urine Cocaine Screen U Marijuana (THC) Screen Serum Alcohol Blood Type Antibody Screen 06/28/18 06/28/18 06:25 07:23 WBC RBC Hgb Hct MCV MCH MCHC RDW Plt Count Seg Neutrophils % Lymphocytes % Monocytes % Eosinophils % Basophils % Absolute Neutrophils Absolute Lymphocytes Absolute Monocytes Absolute Eosinophils Absolute Basophils Platelet Comment Anisocytosis Macrocytosis PT INR APTT VBG pH VBG pCO2 VBG HCO3 VBG Base Excess Sodium Potassium Chloride Carbon Dioxide Anion Gap BUN Creatinine Est GFR ( Amer) Est GFR (Non-Af Amer) Glucose POC Glucose Lactic Acid Calcium Total Bilirubin Direct Bilirubin Neonat Total Bilirubin Neonat Direct Bilirubin Neonat Indirect Bili AST ALT Alkaline Phosphatase Ammonia Creatine Kinase CK-MB (CK-2) Troponin I Total Protein Albumin Lipase TSH Free T4 Urine Color Urine Appearance Urine pH Ur Specific [place] Urine Protein Urine Glucose (UA) Urine Ketones Urine Blood Urine Nitrite Urine Bilirubin Urine Urobilinogen Ur Leukocyte Esterase Urine WBC (Auto) Urine RBC (Auto) U Hyaline Cast (Auto) Squamous Epi Cells Auto Urine Mucus (Auto) Urine Ascorbic Acid Urine Opiates Screen NEGATIVE Urine Methadone Screen NEGATIVE Ur Barbiturates Screen NEGATIVE Ur Phencyclidine Scrn NEGATIVE Ur Amphetamines Screen NEGATIVE U Benzodiazepines Scrn NEGATIVE Urine Cocaine Screen NEGATIVE U Marijuana (THC) Screen NEGATIVE Serum Alcohol Blood Type B POSITIVE Antibody Screen NEGATIVE Chest X-Ray 06/28/18 06:19 IMPRESSION: No acute cardiopulmonary abnormality copyright 2011 [employer]- All Rights Reserved Abdomen/Pelvis CTA 06/28/18 07:13 IMPRESSION: 1. No evidence of aortic aneurysm, dissection, or acute aortic s yndrome. No significant atherosclerosis. 2. Gross hepatomegaly and severe hyperdensity of the parenchyma, which may reflect unusually severe hepatic steatosis and/or acute hepatitis. This appearance is generally similar to prior examination dated 06/06/2018. 3. Fat stranding about the cecum, consistent with nonspecific infectious or inflammatory colitis. Chest/Abdomen CTA 06/28/18 07:13 IMPRESSION: 1. No evidence of aortic aneurysm, dissection, or acute aortic syndrome. No significant atherosclerosis. 2. Gross hepatomegaly and severe hyperdensity of the parenchyma, which may reflect unusually severe hepatic steatosis and/or acute hepatitis. This appearance is generally similar to prior examination dated 06/06/2018. 3. Fat stranding about the cecum, consistent with nonspecific infectious or inflammatory colitis. 06/28/18 11:25 06/28/18 11:56 06/28/18 13:25 - Vital Signs Vital signs: Temp Pulse Resp BP Pulse Ox 99.6 F 20 153/96 H 96 06/28/18 13:21 06/28/18 13:21 06/28/18 13:21 06/28/18 13:21 - Laboratory Result Diagrams: 06/28/18 06:10 06/28/18 06:10 Laboratory results interpreted by me: 06/28/18 06/28/18 06/28/18 06:10 06:10 06:10 RBC 3.10 L Hgb 11.8 L Hct 33.5 L MCV 108 H D MCH 38.2 H RDW 24.8 H Plt Count 118 L Seg Neutrophils % 80.8 H Lymphocytes % 9.9 L Sodium 136.6 L Chloride 94 L Anion Gap 20 H BUN 6 L Glucose 231 H POC Glucose 233 H Lactic Acid Total Bilirubin 6.0 H Direct Bilirubin 4.8 H AST 420 H ALT 147 H Alkaline Phosphatase 245 H Ammonia Lipase Urine Protein Urine Glucose (UA) Urine Ketones Urine Bilirubin Urine Urobilinogen Acetaminophen 06/28/18 06/28/18 06/28/18 06:10 06:10 06:10 RBC Hgb Hct MCV MCH RDW Plt Count Seg Neutrophils % Lymphocytes % Sodium Chloride Anion Gap BUN Glucose POC Glucose Lactic Acid 10.3 H Total Bilirubin Direct Bilirubin AST ALT Alkaline Phosphatase Ammonia 44.3 H Lipase 608.4 H Urine Protein Urine Glucose (UA) Urine Ketones Urine Bilirubin Urine Urobilinogen Acetaminophen 06/28/18 06/28/18 06:10 06:25 RBC Hgb Hct MCV MCH RDW Plt Count Seg Neutrophils % Lymphocytes % Sodium Chloride Anion Gap BUN Glucose POC Glucose Lactic Acid Total Bilirubin Direct Bilirubin AST ALT Alkaline Phosphatase Ammonia Lipase Urine Protein 100 H Urine Glucose (UA) 50 H Urine Ketones TRACE H Urine Bilirubin MODERATE H Urine Urobilinogen 4.0 H Acetaminophen < 10 L Critical Care Note - Critical Care Note Total time excluding time spent on procedures (mins): 75 Comments: Hypertension, tachycardia, altered mental status, consultation with specialist., Coordination of transfer of care to higher level. Discharge - Discharge Clinical Impression: Hypertensive emergency, Increased ammonia level, Total bilirubin, elevated, Lactic acid acidosis Acute hepatic failure Qualifiers: Hepatic coma status: without hepatic coma Qualified Code(s): K72.00 - Acute and subacute hepatic failure without coma Alcohol withdrawal Qualifiers: Complication of substance-induced condition: with delirium Qualified Code(s): F10.231 - Alcohol dependence with withdrawal delirium Condition: Poor Disposition: [facility] Admitting Provider: Lyndsay (Hospitalist) Unit Admitted: ICU
[2018-06-28] MEDS ORDERED: LABETALOL HCL INJ 20 MG/4 ML DISP.SYRIN IV ONE (06:24)
[2018-06-28] MEDS ORDERED: NITROGLYCERIN 2% OINTMENT 1 GM PACKET TP ONE (06:24)
[2018-06-28] MEDS ORDERED: METOPROLOL TARTRATE PF/INJ 5 MG/5 ML SDV IV ONE ×2 (06:33)
[2018-06-28 06:38] LABS: VENOUS BLOOD BASE EXCESS -2.4 mmol/L; VENOUS BLOOD HCO3 23.6 mmol/L (20-32); VENOUS BLOOD PCO2 45.3 mmHg (35-63); VENOUS BLOOD PH 7.34 (7.30-7.42)
[2018-06-28 06:43] LABS: APPEARANCE,URINE SLIGHTLY-CLOUDY; BILIRUBIN,URINE MODERATE (NEGATIVE); COLOR,URINE AMBER; GLUCOSE, URINE 50 mg/dL (NEGATIVE); KETONES,URINE TRACE mg/dL (NEGATIVE); LEUKOCYTE ESTERASE,URINE NEGATIVE (NEGATIVE); NITRITE,URINE NEGATIVE (NEGATIVE); PROTEIN,URINE 100 mg/dL (NEGATIVE); URINE SPECIFIC GRAVITY 1.019
[2018-06-28 06:44] LABS: ABSOLUTE LYMPHOCYTES (AUTO) 0.5 10^3/uL (0.5-4.7); ABSOLUTE MONOCYTES (AUTO) 0.5 10^3/uL (0.1-1.4); ABSOLUTE NEUT (AUTO) 4.5 10^3/uL (1.7-8.2); BASOPHILS % (AUTO) 0.3 % (0-2); EOSINOPHILS % (AUTO) 0.3 % (0-6); HEMATOCRIT 33.5 % (37.9-51.0); HEMOGLOBIN 11.8 g/dL (13.5-17.0); LYMPHOCYTES % (AUTO) 9.9 % (13-45); MEAN CORPUSCULAR HEMOGLOBIN 38.2 pg (27.0-33.4); MEAN CORPUSCULAR HGB CONC 35.3 g/dL (32.0-36.0); MONOCYTES % (AUTO) 8.7 % (3-13); PLATELET COUNT 118 10^3/uL (150-450); RED CELL DISTRIBUTION WIDTH 24.8 % (11.5-14.0); SEGMENTED NEUTROPHILS % (AUTO) 80.8 % (42-78); TOTAL CELLS COUNTED % (AUTO) 100 %; WHITE BLOOD COUNT 5.5 10^3/uL (4.0-10.5)
--- NOTE | 2018-06-28 06:52 | RADIOLOGY REPORT (SQ) ---
EXAM DESCRIPTION: XR CHEST 1 VIEW COMPLETED DATE/TME: 06/28/2018 06:19 CLINICAL HISTORY: 42 years, Male, sob COMPARISON: 11/04/2017 NUMBER OF VIEWS: One TECHNIQUE: AP view of the chest LIMITATIONS: None. FINDINGS: Lungs are clear. The heart is normal in size. There is no pneumothorax or pleural effusion. There is no acute fracture IMPRESSION: No acute cardiopulmonary abnormality copyright 2010 [employer]- All Rights Reserved
[2018-06-28 06:56] LABS: URINE AMPHETAMINES SCREEN NEGATIVE; URINE BARBITURATES SCREEN NEGATIVE; URINE BENZODIAZEPINES SCREEN NEGATIVE; URINE COCAINE SCREEN NEGATIVE; URINE MARIJUANA (THC) SCREEN NEGATIVE; URINE METHADONE SCREEN NEGATIVE; URINE PHENCYCLIDINE SCREEN NEGATIVE
[2018-06-28 06:58] LABS: ALANINE AMINOTRANSFERASE 147 U/L (21-72); ALBUMIN 3.6 g/dL (3.5-5.0); ALCOHOL 67 mg/dL (NONE DETECTED); ALKALINE PHOSPHATASE 245 U/L (38-126); ASPARTATE AMINO TRANSFERASE 420 U/L (17-59); BILIRUBIN,DIRECT 4.8 mg/dL (0.0-0.4); BLOOD UREA NITROGEN 6 mg/dL (7-20); CALCIUM 8.6 mg/dL (8.4-10.2); CREATINE KINASE 108 U/L (55-170); GLUCOSE 231 mg/dL (75-110); POTASSIUM 3.7 mmol/L (3.6-5.0); TOTAL PROTEIN 7.4 g/dL (6.3-8.2)
[2018-06-28 07:02] LABS: CARBON DIOXIDE 22 mmol/L (22-30); CHLORIDE 94 mmol/L (98-107); SODIUM 136.6 mmol/L (137-145)
[2018-06-28 07:05] LABS: ANION GAP 20 (5-19)
[2018-06-28 07:09] LABS: CREATINE KINASE MB 0.85 ng/mL (<4.55)
[2018-06-28 07:10] LABS: TROPONIN I < 0.012 ng/mL
[2018-06-28 07:13] LABS: FREE T4 (FREE THYROXINE) 1.41 ng/dL (0.78-2.19)
[2018-06-28 07:27] LABS: THYROID STIMULATING HORMONE 4.61 uIU/mL (0.47-4.68)
[2018-06-28 07:48] LABS: INTERNATIONAL RATION (INR) 1.14; PROTHROMBIN TIME 15.2 SEC (11.4-15.4)
[2018-06-28 07:49] LABS: MEAN CORPUSCULAR VOLUME 108 fl (80-97); PARTIAL THROMBOPLASTIN TIME 35.6 SEC (23.5-35.8)
[2018-06-28 07:55] LABS: ANISOCYTOSIS 3+; PLATELET COMMENT DECREASED
[2018-06-28] MEDS ORDERED: ONDANSETRON HCL INJ/PF 4 MG/2 ML SDV IV ONE (08:08)
[2018-06-28] MEDS ORDERED: LACTULOSE SYRUP 20 GM/30 ML UDCUP PO ONE (08:12)
--- NOTE | 2018-06-28 08:42 | RADIOLOGY REPORT (SQ) ---
EXAM DESCRIPTION: CTA CHEST; CTA ABDOMEN/PELVIS W WO COMPLETED DATE/TIME: 06/28/2018 8:03 am; 06/28/2018 8:04 am REASON FOR STUDY: chest pain, htn; abd pain , htn, leg pain, cold extremities COMPARISON: CT abdomen pelvis, 06/06/2018 TECHNIQUE: CT scan of the chest, abdomen, and pelvis performed with intravenous contrast using helic al scanning technique with dynamic intravenous contrast injection. Images reviewed with lung, soft ti ssue, and bone windows. Reconstructed coronal and sagittal MPR images reviewed. All images stored on PACS. Advanced 3D imaging as volume rendering, MIPS, SSD performed? yes All CT scanners at this facility use dose modulation, iterative reconstruction, and/or weight based d osing when appropriate to reduce radiation dose to as low as reasonably achievable (ALARA). [facility]: Dose Right [facility]: CareDose [facility]: Dose Right [facility]: Teradose 4D [facility]: Alexis Bittar CONTRAST TYPE AND DOSE: contrast/concentration: Isovue 350.00 mg/ml; Total Contrast Delivered: 75.0 ml; Total Saline Delivered: 80.0 ml RENAL FUNCTION: None required. The patient is less than 50 years old. RADIATION DOSE: 3181 mGy cm LIMITATIONS: None. FINDINGS: AORTA AND VESSELS: No aneurysm. No dissection. No significant atherosclerosis. Renal art eries, SMA, celiac without stenosis. LUNGS: Low volume examination. Bibasilar scarring or atelectasis. HEART AND MEDIASTINUM: Normal heart. No mass or mediastinal lymphadenopathy. LIVER: Gross hepatomegaly and severe hypodensity of the parenchyma, which may reflect unusually sever e hepatic steatosis and/or acute hepatitis. SPLEEN: Normal size. No focal lesions. PANCREAS: No masses. No significant calcifications. No adjacent inflammation or peripancreatic fluid collections. Pancreatic duct not dilated. GALLBLADDER: No identified stones by CT criteria. No inflammatory changes to suggest cholecystitis. ADRENAL GLANDS: No significant masses or asymmetry. RIGHT KIDNEY AND URETER: No mass, calculi or urinary tract obstruction. LEFT KIDNEY AND URETER: No mass, calculi or urinary tract obstruction. RETROPERITONEUM: No retroperitoneal adenopathy, hemorrhage or masses. BOWEL AND PERITONEAL CAVITY: There is fat stranding about the cecum (series 5, image 70). No free flu id or peritoneal masses. APPENDIX: Diminutive. ABDOMINAL WALL: No masses. No hernias. BONY STRUCTURES: No significant or acute findings. 3-D IMAGING: Confirms the above findings. OTHER: No other significant finding. IMPRESSION: 1. No evidence of aortic aneurysm, dissection, or acute aortic syndrome. No significan t atherosclerosis. 2. Gross hepatomegaly and severe hyperdensity of the parenchyma, which may reflect unusually severe hepatic steatosis and/or acute hepatitis. This appearance is generally similar to prior examination dated 06/06/2018. 3. Fat stranding about the cecum, consistent with nonspecific infectious or inflammatory colitis. TECHNICAL DOCUMENTATION: JOB ID: [id number] Quality ID # [id number]: Final reports with documentation of one or more dose reduction techniques (e.g., Au tomated exposure control, adjustment of the mA and/or kV according to patient size, use of iterative reconstruction technique) 2010 [employer]- All Rights Reserved Reading location - IP/workstation name: [email or web address]
--- NOTE | 2018-06-28 08:42 | RADIOLOGY REPORT (SQ) ---
EXAM DESCRIPTION: CTA CHEST; CTA ABDOMEN/PELVIS W WO COMPLETED DATE/TIME: 06/28/2018 8:03 am; 06/28/2018 8:04 am REASON FOR STUDY: chest pain, htn; abd pain , htn, leg pain, cold extremities COMPARISON: CT abdomen pelvis, 06/06/2018 TECHNIQUE: CT scan of the chest, abdomen, and pelvis performed with intravenous contrast using helic al scanning technique with dynamic intravenous contrast injection. Images reviewed with lung, soft ti ssue, and bone windows. Reconstructed coronal and sagittal MPR images reviewed. All images stored on PACS. Advanced 3D imaging as volume rendering, MIPS, SSD performed? yes All CT scanners at this facility use dose modulation, iterative reconstruction, and/or weight based d osing when appropriate to reduce radiation dose to as low as reasonably achievable (ALARA). [facility]: Dose Right [facility]: CareDose [facility]: Dose Right [facility]: Teradose 4D [facility]: [employer] CONTRAST TYPE AND DOSE: contrast/concentration: Isovue 350.00 mg/ml; Total Contrast Delivered: 75.0 ml; Total Saline Delivered: 80.0 ml RENAL FUNCTION: None required. The patient is less than 50 years old. RADIATION DOSE: 3181 mGy cm LIMITATIONS: None. FINDINGS: AORTA AND VESSELS: No aneurysm. No dissection. No significant atherosclerosis. Renal art eries, SMA, celiac without stenosis. LUNGS: Low volume examination. Bibasilar scarring or atelectasis. HEART AND MEDIASTINUM: Normal heart. No mass or mediastinal lymphadenopathy. LIVER: Gross hepatomegaly and severe hypodensity of the parenchyma, which may reflect unusually sever e hepatic steatosis and/or acute hepatitis. SPLEEN: Normal size. No focal lesions. PANCREAS: No masses. No significant calcifications. No adjacent inflammation or peripancreatic fluid collections. Pancreatic duct not dilated. GALLBLADDER: No identified stones by CT criteria. No inflammatory changes to suggest cholecystitis. ADRENAL GLANDS: No significant masses or asymmetry. RIGHT KIDNEY AND URETER: No mass, calculi or urinary tract obstruction. LEFT KIDNEY AND URETER: No mass, calculi or urinary tract obstruction. RETROPERITONEUM: No retroperitoneal adenopathy, hemorrhage or masses. BOWEL AND PERITONEAL CAVITY: There is fat stranding about the cecum (series 5, image 70). No free flu id or peritoneal masses. APPENDIX: Diminutive. ABDOMINAL WALL: No masses. No hernias. BONY STRUCTURES: No significant or acute findings. 3-D IMAGING: Confirms the above findings. OTHER: No other significant finding. IMPRESSION: 1. No evidence of aortic aneurysm, dissection, or acute aortic syndrome. No significan t atherosclerosis. 2. Gross hepatomegaly and severe hyperdensity of the parenchyma, which may reflect unusually severe hepatic steatosis and/or acute hepatitis. This appearance is generally similar to prior examination dated 06/06/2018. 3. Fat stranding about the cecum, consistent with nonspecific infectious or inflammatory colitis. TECHNICAL DOCUMENTATION: JOB ID: [id number] Quality ID # [id number]: Final reports with documentation of one or more dose reduction techniques (e.g., Au tomated exposure control, adjustment of the mA and/or kV according to patient size, use of iterative reconstruction technique) 2010 [employer]- All Rights Reserved Reading location - IP/workstation name: [email or web address]
[2018-06-28] MEDS ORDERED: MORPHINE SULFATE 10 MG/ML INJ IV ONE (09:17)
[2018-06-28] MEDS ORDERED: LORAZEPAM INJ 2 MG/1 ML VIAL IV ONE ×3 (09:24→13:26)
[2018-06-28] MEDS ORDERED: CEFOXITIN 1 GM/D5W RTU 1 GM/50 ML RTUPB IV ONE (10:10)
--- NOTE | 2018-06-28 10:18 | RADIOLOGY REPORT (SQ) ---
EXAM DESCRIPTION: U/S ABDOMEN LIMITED W/O DOP COMPLETED DATE/TIME: 06/28/2018 9:51 am REASON FOR STUDY: ruq pain, elevated bilirubin COMPARISON: None. TECHNIQUE: Dynamic and static grayscale images acquired of the abdomen and recorded on PACS. Additio nal selected color Doppler and spectral images recorded. LIMITATIONS: Extremely limited secondary to body habitus and inability to penetrate the liver. FINDINGS: PANCREAS: Not visualized LIVER: Hepatomegaly. Fatty infiltration. Heterogeneous echotexture. Limited visualization. LIVER VASCULATURE: Normal directional flow of the main portal vein and hepatic veins. GALLBLADDER: Sludge. No definite thickened wall or pericholecystic edema. ULTRASOUND-DETECTED HERNANDEZ'S SIGN: Negative. INTRAHEPATIC DUCTS AND COMMON DUCT: Not visualized INFERIOR VENA CAVA: Not visualized AORTA: Not visualized RIGHT KIDNEY: Not visualized PERITONEAL AND RIGHT PLEURAL SPACE: No ascites or effusions. OTHER: No other significant findings. IMPRESSION: Extremely limited examination because of body habitus and overlying bowel gas. Liver is enlarged with fatty infiltration. Sludge within the gallbladder. TECHNICAL DOCUMENTATION: JOB ID: [id number] [employer]- All Rights Reserved Reading location - IP/workstation name: [email or web address]
--- NOTE | 2018-06-28 11:05 | EKG REPORT ---
SEVERITY:- ABNORMAL ECG - SINUS TACHYCARDIA NONSPECIFIC T ABNORMALITIES, LATERAL LEADS : Confirmed by: Charlie Odom 28-Jun-2018 11:05:11
--- NOTE | 2018-06-28 11:34 | PDOC CONSULTATION ---
Consultation Consult Date: 06/28/18 Consult reason:: abdominal pains r/o acute appendicitis History of Present Illness Admission Date/PCP: 06/28/18 10:07 KWAME RICHARDSON MD History of Present Illness: LALITHA ALANIS is a 42 year old male who drinks a fifth of whiskey a day has been c/o abdominal pains with occasional nausea and vomiting for the past month. Was seen in ED 06/16/18 for same complaints and diagnosed and treated for UTI with po Keflex and discharged after work up including CT scan abd/pelvis and US. Fiancee claims patient has been falling from his truck because of leg weakness for past week and still with abdominal pains and chest pains. Abdominal pains are diffused but more in the RUQ and LUQ. Denies fever or chills. Has some tremors/weakness of lower extremities. Past Medical History Cardiac Medical History: Denies: Coronary Artery Disease, Myocardial Infarction Past Surgical History Past Surgical History: Reports: Tonsillectomy Social History Lives with: Family Smoking Status: Smoker,Current Status Unk Frequency of Alcohol Use: Heavy - a fifth (bottle) of whiskey a day Family History Family History: Reviewed & Not Pertinent Parental Family History Reviewed: Yes Children Family History Reviewed: No Sibling(s) Family History Reviewed.: No Medication/Allergy Home Medications: Ibuprofen [Motrin 800 mg Tablet] 800 mg PO QIDP PRN 06/28/18 Allergies/Adverse Reactions: No Known Allergies Allergy (Verified 09/25/17 12:28) Review of Systems Constitutional: PRESENT: as per HPI Eyes: PRESENT: other - no visual/hearing changes Cardiovascular: PRESENT: chest pain Gastrointestinal: PRESENT: abdominal pain, nausea, vomiting Genitourinary: PRESENT: other - no dysuria Neurological: PRESENT: weakness - lower extremities Physical Exam Vital Signs: Temp Pulse Resp BP Pulse Ox 99.4 F 16 134/103 H 95 06/28/18 09:41 06/28/18 09:41 06/28/18 09:41 06/28/18 09:41 Intake & Output 06/27/18 06/28/18 06/29/18 06:59 06:59 06:59 Intake Total 1050 Balance 1050 Weight 167.829 kg General appearance: PRESENT: obese, severe distress Head exam: PRESENT: atraumatic Eye exam: PRESENT: scleral icterus Mouth exam: PRESENT: dry mucosa Neck exam: PRESENT: full ROM Respiratory exam: PRESENT: clear to auscultation angelique Cardiovascular exam: PRESENT: tachycardia Pulses: PRESENT: normal radial pulses Vascular exam: PRESENT: normal capillary refill GI/Abdominal exam: PRESENT: soft, tenderness - diffuse but more in the RUQ and LLQ Rectal exam: PRESENT: deferred Extremities exam: PRESENT: full ROM Musculoskeletal exam: PRESENT: ambulatory Neurological exam: PRESENT: alert, oriented to person, oriented to place, or iented to time, oriented to situation Psychiatric exam: PRESENT: anxious Skin exam: PRESENT: normal color, warm Results Laboratory Results: 06/28/18 06:10 06/28/18 06:10 06/28/18 06/28/18 06/28/18 06:10 06:10 06:10 WBC 5.5 RBC 3.10 L Hgb 11.8 L Hct 33.5 L MCV 108 H D MCH 38.2 H MCHC 35.3 RDW 24.8 H Plt Count 118 L Seg Neutrophils % 80.8 H Lymphocytes % 9.9 L Monocytes % 8.7 Eosinophils % 0.3 Basophils % 0.3 Absolute Neutrophils 4.5 Absolute Lymphocytes 0.5 Absolute Monocytes 0.5 Absolute Eosinophils 0.0 Absolute Basophils 0.0 VBG pH VBG pCO2 VBG HCO3 VBG Base Excess Sodium 136.6 L Potassium 3.7 Chloride 94 L Carbon Dioxide 22 Anion Gap 20 H BUN 6 L Creatinine 0.63 Est GFR ( Amer) > 60 Est GFR (Non-Af Amer) > 60 Glucose 231 H Lactic Acid Cancelled Calcium 8.6 Total Bilirubin 6.0 H AST 420 H ALT 147 H Alkaline Phosphatase 245 H Ammonia Total Protein 7.4 Albumin 3.6 Lipase TSH Free T4 Urine Color Urine Appearance Urine pH Ur Specific [place] Urine Protein Urine Glucose (UA) Urine Ketones Urine Blood Urine Nitrite Ur Leukocyte Esterase Urine WBC (Auto) Urine RBC (Auto) Blood Type Antibody Screen 06/28/18 06/28/18 06/28/18 06:10 06:10 06:10 WBC RBC Hgb Hct MCV MCH MCHC RDW Plt Count Seg Neutrophils % Lymphocytes % Monocytes % Eosinophils % Basophils % Absolute Neutrophils Absolute Lymphocytes Absolute Monocytes Absolute Eosinophils Absolute Basophils VBG pH 7.34 VBG pCO2 45.3 VBG HCO3 23.6 VBG Base Excess -2.4 Sodium Potassium Chloride Carbon Dioxide Anion Gap BUN Creatinine Est GFR ( Amer) Est GFR (Non-Af Amer) Glucose Lactic Acid Calcium Total Bilirubin AST ALT Alkaline Phosphatase Ammonia 44.3 H Total Protein Albumin Lipase TSH 4.61 Free T4 1.41 Urine Color Urine Appearance Urine pH Ur Specific [place] Urine Protein Urine Glucose (UA) Urine Ketones Urine Blood Urine Nitrite Ur Leukocyte Esterase Urine WBC (Auto) Urine RBC (Auto) Blood Type Antibody Screen 06/28/18 06/28/18 06/28/18 06:10 06:10 06:25 WBC RBC Hgb Hct MCV MCH MCHC RDW Plt Count Seg Neutrophils % Lymphocytes % Monocytes % Eosinophils % Basophils % Absolute Neutrophils Absolute Lymphocytes Absolute Monocytes Absolute Eosinophils Absolute Basophils VBG pH VBG pCO2 VBG HCO3 VBG Base Excess Sodium Potassium Chloride Carbon Dioxide Anion Gap BUN Creatinine Est GFR ( Amer) Est GFR (Non-Af Amer) Glucose Lactic Acid 10.3 H Calcium Total Bilirubin AST ALT Alkaline Phosphatase Ammonia Total Protein Albumin Lipase 608.4 H TSH Free T4 Urine Color STACIE Urine Appearance SLIGHTLY-CLOUDY Urine pH 6.0 Ur Specific [place] 1.019 Urine Protein 100 H Urine Glucose (UA) 50 H Urine Ketones TRACE H Urine Blood NEGATIVE Urine Nitrite NEGATIVE Ur Leukocyte Esterase NEGATIVE Urine WBC (Auto) 8 Urine RBC (Auto) 1 Blood Type Antibody Screen 06/28/18 07:23 WBC RBC Hgb Hct MCV MCH MCHC RDW Plt Count Seg Neutrophils % Lymphocytes % Monocytes % Eosinophils % Basophils % Absolute Neutrophils Absolute Lymphocytes Absolute Monocytes Absolute Eosinophils Absolute Basophils VBG pH VBG pCO2 VBG HCO3 VBG Base Excess Sodium Potassium Chloride Carbon Dioxide Anion Gap BUN Creatinine Est GFR ( Amer) Est GFR (Non-Af Amer) Glucose Lactic Acid Calcium Total Bilirubin AST ALT Alkaline Phosphatase Ammonia Total Protein Albumin Lipase TSH Free T4 Urine Color Urine Appearance Urine pH Ur Specific [place] Urine Protein Urine Glucose (UA) Urine Ketones Urine Blood Urine Nitrite Ur Leukocyte Esterase Urine WBC (Auto) Urine RBC (Auto) Blood Type B POSITIVE Antibody Screen NEGATIVE 06/28/18 06/28/18 06:10 06:10 Creatine Kinase 108 CK-MB (CK-2) 0.85 Troponin I < 0.012 Impressions: Chest X-Ray 06/28/18 06:19 IMPRESSION: No acute cardiopulmonary abnormality copyright 2011 [employer]- All Rights Reserved Abdomen/Pelvis CTA 06/28/18 07:13 IMPRESSION: 1. No evidence of aortic aneurysm, dissection, or acute aortic syndrome. No significant atherosclerosis. 2. Gross hepatomegaly and severe hyperdensity of the parenchyma, which may reflect unusually severe hepatic steatosis and/or acute hepatitis. This appearance is generally similar to prior examination dated 06/06/2018. 3. Fat stranding about the cecum, consistent with nonspecific infectious or inflammatory colitis. Chest/Abdomen CTA 06/28/18 07:13 IMPRESSION: 1. No evidence of aortic aneurysm, dissection, or acute aortic syndrome. No significant atherosclerosis. 2. Gross hepatomegaly and severe hyperdensity of the parenchyma, which may reflect unusually severe hepatic steatosis and/or acute hepatitis. This appearance is generally similar to prior examination dated 06/06/2018. 3. Fat stranding about the cecum, consistent with nonspecific infectious or inflammatory colitis. Abdomen Ultrasound 06/28/18 08:11 IMPRESSION: Extremely limited examination because of body habitus and overlying bowel gas. Liver is enlarged with fatty infiltration. Sludge within the gallbladder. Assessment & Plan - Diagnosis (1) Pancreatitis Qualifiers: Pancreatitis type: alcohol induced Is this a current diagnosis for this admission?: Yes (2) Colitis Is this a current diagnosis for this admission?: Yes (3) Acute hepatic failure Qualifiers: Hepatic coma status: without hepatic coma Qualified Code(s): K72.00 - Acute and subacute hepatic failure without coma Is this a current diagnosis for this admission?: Yes (4) Alcohol withdrawal Qualifiers: Complication of substance-induced condition: with delirium Qualified Code(s): F10.231 - Alcohol dependence with withdrawal delirium - Time Time Spent: 30 to 50 Minutes - Inpatient Certification Based on my medical assessment, after consideration of the patient's comorbidities, presenting symptoms, or acuity I expect that the services needed warrant INPATIENT care.: Yes I certify that my determination is in accordance with my understanding of Medicare's requirements for reasonable and necessary INPATIENT services [42 CFR 412.3e].: Yes Medical Necessity: Need Close Monitoring Due to Risk of Patient Decompensation, Need For IV Fluids, Need For Continuous Telemetry Monitoring, Need for Neurological Checks, Need for Pain Control, Risk of Complication if Not Cared For in Hospital - Plan Summary Plan Summary: In view of impending alcohol withdrawal with severe dehydration/sepsis strongly recommend transfer to a tertiary facility. He will need an Lead Ramp Agent, GI which we don't have. No obvious evidence of acute appendicitis or cholecystitis
[2018-06-28 13:42] VITALS: BP 140/94
[2018-06-29 07:41] LABS: HEPATITIS A AB IGM Negative (Negative); HEPATITIS B CORE AB IGM Negative (Negative); HEPATITS B SURFACE ANTIGEN Negative (Negative)
[2018-06-29 07:45] LABS: HEPATITIS C VIRUS ANTIBODY <0.1 s/co ratio (0.0-0.9)
== END 2018-06-28 14:20 | disposition short-term general hospital (02) ==
LOC: ER 06:04 → UNDOADMIN 10:07 → EH 10:07 → UNDODISIN 14:21
DX: I16.0 Hypertensive urgency (principal); K72.00 Acute and subacute hepatic failure without coma; F10.231 Alcohol dependence with withdrawal delirium; E87.2 Acidosis; R07.9 Chest pain, unspecified; E80.6 Other disorders of bilirubin metabolism; R79.89 Other specified abnormal findings of blood chemistry; R03.0 Elevated blood-pressure reading, without diagnosis of hypertension; R41.82 Altered mental status, unspecified; R10.9 Unspecified abdominal pain; F17.200 Nicotine dependence, unspecified, uncomplicated; R53.1 Weakness; H53.8 Other visual disturbances; R30.0 Dysuria; M79.10 Myalgia, unspecified site; I10 Essential (primary) hypertension
CPT/HCPCS: 93005; 96376; 99291; 99292; 96361; 51702; 96375; 96365; 86900; 86901; 36415; 87040; 84439; 82553; 86850; 82962; 80307 ×3; 82140; 82550; 83690; 84443; 85025; 85610; 85730; 87077; 80053; 81001; 84484; 87186; 82803; 83605; 80074; 71045; 76705; 71275; 74174; 93010; J0694; J3490; J2270; J2060; J2405; J7030

== ENCOUNTER 2019-08-18 00:11 | Emergency (ER) | payer MEDICAID ==
[2019-08-18 00:33] LABS: ABSOLUTE LYMPHOCYTES (AUTO) 0.8 10^3/uL (0.5-4.7); ABSOLUTE MONOCYTES (AUTO) 0.5 10^3/uL (0.1-1.4); ABSOLUTE NEUT (AUTO) 5.9 10^3/uL (1.7-8.2); BASOPHILS % (AUTO) 0.5 % (0-2); EOSINOPHILS % (AUTO) 0.4 % (0-6); HEMATOCRIT 44.8 % (37.9-51.0); HEMOGLOBIN 15.5 g/dL (13.5-17.0); LYMPHOCYTES % (AUTO) 10.9 % (13-45); MEAN CORPUSCULAR HEMOGLOBIN 30.6 pg (27.0-33.4); MEAN CORPUSCULAR HGB CONC 34.7 g/dL (32.0-36.0); MEAN CORPUSCULAR VOLUME 88 fl (80-97); MONOCYTES % (AUTO) 6.4 % (3-13); PLATELET COUNT 151 10^3/uL (150-450); RED BLOOD COUNT 5.07 10^6/uL (4.35-5.55); RED CELL DISTRIBUTION WIDTH 17.1 % (11.5-14.0); SEGMENTED NEUTROPHILS % (AUTO) 81.8 % (42-78); TOTAL CELLS COUNTED % (AUTO) 100 %; WHITE BLOOD COUNT 7.2 10^3/uL (4.0-10.5)
[2019-08-18] MEDS ORDERED: NORMAL SALINE 1000 ML 1,000 ML IV ONE ×2 (00:43→01:59)
[2019-08-18 00:50] LABS: ALBUMIN 4.7 g/dL (3.5-5.0); ALKALINE PHOSPHATASE 94 U/L (38-126); ANION GAP 10 (5-19); ASPARTATE AMINO TRANSFERASE 32 U/L (17-59); BILIRUBIN,DIRECT 0.2 mg/dL (0.0-0.4); BILIRUBIN,TOTAL 1.9 mg/dL (0.2-1.3); BLOOD UREA NITROGEN 13 mg/dL (7-20); CALCIUM 9.4 mg/dL (8.4-10.2); CARBON DIOXIDE 26 mmol/L (22-30); CHLORIDE 99 mmol/L (98-107); GLUCOSE 117 mg/dL (75-110); POTASSIUM 4.1 mmol/L (3.6-5.0); TOTAL PROTEIN 7.9 g/dL (6.3-8.2)
[2019-08-18] MEDS ORDERED: KETOROLAC TROMETHAMINE INJ/PF 30 MG/1 ML SDV IV ONE (00:51)
[2019-08-18] MEDS ORDERED: ONDANSETRON HCL INJ/PF 4 MG/2 ML SDV IV ONE (00:52)
--- NOTE | 2019-08-18 00:52 | RADIOLOGY REPORT (SQ) ---
AP Portable chest: 08/17/2019 11:50 PM CDT History: 43-year old patient with chest pain. Comparison: Chest radiograph performed 06/28/2018. Findings: The cardiomediastinal silhouette is normal in size. No pneumothorax is seen. No acute airspace opacities are seen. No discrete pleural effusion is apparent. Impression: No acute airspace opacities are seen.
--- NOTE | 2019-08-18 02:00 | ER Document Report ---
Entered by TENA ORTIZ SCRIBE 08/18/19 0051 Acting as scribe for:RADHA NOVAK IV, MD ED General - General Chief Complaint: Chest Pain Stated Complaint: WEAKNESS Time Seen by Provider: 08/18/19 00:40 Primary Care Provider: KWAME RICHARDSON MD [Primary Care Provider] - Follow up as needed Mode of Arrival: Medic Information source: Patient Notes: This 43 year old male patient brought in by EMS from home presents to the ED today with complaints of sternal chest pain with associated nausea/vomiting for the past x2-3 days. Patient describes the pain as a heaviness and tightness that radiates to his left shoulder and back. EMS administered 325 mg Aspirin, 0.4 mg NTG spray x2 and 15 g oral glucose. Patient states that he had approximately x5 episodes of emesis today. Patient also notes generally not feeling well in addition to a subjective fever, chills, and diaphoresis. He reports that he has had a "hard time walking" today and that he has fell a couple of times, but denies hitting his head. He notes an occipital headache as well as dizziness, but denies abdominal pain or any other symptoms. TRAVEL OUTSIDE OF THE [place] IN LAST 30 DAYS: No - Related Data Allergies/Adverse Reactions: No Known Allergies Allergy (Verified 09/25/17 12:28) Past Medical History - General Information source: Patient, [facility] Records - Social History Smoking Status: Current Every Day Smoker Cigarette use (# per day): Yes Chew tobacco use (# tins/day): No Smoking Education Provided: No Frequency of alcohol use: Social Drug Abuse: None Lives with: Spouse/Significant other Family History: Reviewed & Not Pertinent Patient has suicidal ideation: No Patient has homicidal ideation: No - Past Medical History Cardiac Medical History: Reports: Hx Hypertension Endocrine Medical History: Reports: Hx Diabetes Mellitus Type 2 Psychiatric Medical History: Reports: Hx Depression Past Surgical History: Reports: Hx Tonsillectomy - Immunizations Immunizations up to date: Yes Hx Diphtheria, Pertussis, Tetanus Vaccination: Yes Review of Systems - Review of Systems Constitutional: See HPI, Chills, Diaphoresis, Fever, Weakness EENT: No symptoms reported Cardiovascular: See HPI, Chest pain, Dizziness Respiratory: No symptoms reported Gastrointestinal: See HPI, Nausea, Vomiting. denies: Abdominal pain Genitourinary: No symptoms reported Male Genitourinary: No symptoms reported Musculoskeletal: See HPI, Back pain, Joint pain - Left shoulder Skin: No symptoms reported Hematologic/Lymphatic: No symptoms reported Neurological/Psychological: See HPI, Headaches -: Yes All other systems reviewed and negative Physical Exam - Vital signs Vitals: Temp 98.1 F 08/18/19 00:11 Interpretation: Normal - General General appearance: Alert In distress: None - HEENT Head: Normocephalic, Atraumatic Eyes: Normal Pupils: PERRL - Respiratory Respiratory status: No respiratory distress Chest status: Nontender Breath sounds: Normal Chest palpation: Normal - Cardiovascular Rhythm: Regular Heart sounds: Normal auscultation Murmur: No Friction rub: No Gallop: None auscultated - Abdominal Inspection: Normal Distension: No distension Bowel sounds: Normal Tenderness: Nontender - Abdomen soft Organomegaly: No organomegaly - Back Back: Normal, Nontender - Extremities General upper extremity: Normal inspection General lower extremity: Normal inspection - Neurological Neuro grossly intact: Yes Orientation: AAOx4 - Psychological Associated symptoms: Normal affect, Normal mood - Skin Skin Temperature: Warm Skin Moisture: Diaphoretic Skin Color: Other - Pallor Course - Re-evaluation Re-evalutation: 08/18/19 06:49 Results of ED MSE discussed with patient. - Vital Signs Vital signs: Temp Pulse Resp BP Pulse Ox 98.2 F 15 169/79 H 96 08/18/19 07:49 08/18/19 07:41 08/18/19 07:41 08/18/19 07:41 - Laboratory Result Diagrams: 08/18/19 00:15 08/18/19 00:15 Laboratory results interpreted by me: 08/18/19 08/18/19 08/18/19 00:15 00:15 02:20 RDW 17.1 H Lymph % (Auto) 10.9 L Seg Neutrophils % 81.8 H Sodium 134.5 L Glucose 117 H Total Bilirubin 1.9 H Ammonia < 8.7 L Urine Protein Urine Ketones Urine Urobilinogen 08/18/19 02:20 RDW Lymph % (Auto) Seg Neutrophils % Sodium Glucose Total Bilirubin Ammonia Urine Protein 30 H Urine Ketones 20 H Urine Urobilinogen 4.0 H - EKG Interpretation by Me Additional EKG results interpreted by me: 08/18/19 06:49 First EKG obtained on 08/18/2019 at 00 25 hours was interpreted by this MD. Findings: Normal sinus rhythm rate 66, normal axis, P waves proceed QRS complexes, QRS complexes appear narrow, there are no obvious patterns of ST segment elevation or depression present to suggest acute myocardial ischemia or infarction. Impression: Normal sinus rhythm with nonspecific ST segments Second EKG obtained on 08/18/2019 at 0543 hrs. was interpreted by this MD. Findings: Sinus rhythm, rate 66, normal axis, P waves are present, P waves preceding QRS complexes, QRS complexes appear narrow, there are no obvious patterns of ST segment elevation or depression present to suggest acute myocardial ischemia or infarction. Impression: Normal sinus rhythm with nonspecific ST segments - Transfer of Care Care transferred to following provider: DR. LEPE AT 0652 Discharge - Discharge Clinical Impression: Chest pain Qualifiers: Chest pain type: unspecified Qualified Code(s): R07.9 - Chest pain, unspecified Condition: Good Disposition: HOME, SELF-CARE Instructions: Alcohol Withdrawl ([facility]), Chest Pain of Unclear Cause ([facility]) Referrals: KWAME RICHARDSON MD [Primary Care Provider] - Follow up as needed I personally performed the services described in the documentation, reviewed and edited the documentation which was dictated to the scribe in my presence, and it accurately records my words and actions.
[2019-08-18 02:42] LABS: APPEARANCE,URINE CLEAR; BILIRUBIN,URINE NEGATIVE (NEGATIVE); COLOR,URINE YELLOW; GLUCOSE, URINE NEGATIVE (NEGATIVE); KETONES,URINE 20 mg/dL (NEGATIVE); LEUKOCYTE ESTERASE,URINE NEGATIVE (NEGATIVE); NITRITE,URINE NEGATIVE (NEGATIVE); PROTEIN,URINE 30 mg/dL (NEGATIVE); URINE SPECIFIC GRAVITY 1.023
[2019-08-18 02:57] LABS: URINE AMPHETAMINES SCREEN NEGATIVE; URINE BARBITURATES SCREEN NEGATIVE; URINE BENZODIAZEPINES SCREEN NEGATIVE; URINE COCAINE SCREEN NEGATIVE; URINE MARIJUANA (THC) SCREEN NEGATIVE; URINE METHADONE SCREEN NEGATIVE; URINE PHENCYCLIDINE SCREEN NEGATIVE
[2019-08-18] MEDS ORDERED: DIAZEPAM INJ 10 MG/2 ML DISP.SYRIN IV ONE (03:42)
[2019-08-18] MEDS ORDERED: NITROGLYCERIN 0.4 MG/TAB 25 TAB/BOTTLE SL PRN (05:30)
[2019-08-18] MEDS ORDERED: MORPHINE SULFATE 10 MG/ML INJ IV ONE (06:05)
[2019-08-18] MEDS ORDERED: LIDOCAINE 2% VISCOUS SOLN 15 ML UDCUP PO ONE (06:33)
[2019-08-18] MEDS ORDERED: MAG HYDROX/AL HYDROX/SIMETH SUSP 30 ML UDCUP PO ONE (06:34)
[2019-08-18] MEDS ORDERED: METOCLOPRAMIDE HCL ORAL SOLN 10 MG/10 ML UDCUP PO ONE (06:35)
[2019-08-18] MEDS ORDERED: FAMOTIDINE 20 MG TABLET PO ONE (06:54)
--- NOTE | 2019-08-18 06:56 | ER Document Report ---
ED Medical Screen (RME) - General Chief Complaint: Chest Pain Stated Complaint: WEAKNESS Time Seen by Provider: 08/18/19 00:40 Primary Care Provider: KWAME RICHARDSON MD [Primary Care Provider] - Follow up as needed Mode of Arrival: Medic Notes: Patient with heavy alcohol use presents with alcohol withdrawal symptoms and burning chest pain that is nonexertional with belching and nausea vomiting. Not better with nitroglycerin. 2- EKGs, 2- troponins. Received signout pending third troponin. If negative, heart score 1, can be discharged home. On my exam at 6:55 AM, no tachycardia active vomiting or tremor. Charged primary care follow-up does not need expeditious stress test based on heart scoring today. I have discussed with the patient there likely diagnosis, aftercare plan, follow- up plans and my usual and customary return precautions. They verbalized understanding of this. TRAVEL OUTSIDE OF THE [place] IN LAST 30 DAYS: No - Related Data Allergies/Adverse Reactions: No Known Allergies Allergy (Verified 09/25/17 12:28) Past Medical History - Social History Cigarette use (# per day): Yes Chew tobacco use (# tins/day): No Frequency of alcohol use: Social Drug Abuse: None - Past Medical History Cardiac Medical History: Reports: Hx Hypertension Denies: Hx Coronary Artery Disease, Hx Heart Attack Endocrine Medical History: Reports: Hx Diabetes Mellitus Type 2 Renal/ Medical History: Denies: Hx Peritoneal Dialysis Psychiatric Medical History: Reports: Hx Depression Past Surgical History: Reports: Hx Tonsillectomy. Denies: Hx Abdominal Surgery - Immunizations Immunizations up to date: Yes Hx Diphtheria, Pertussis, Tetanus Vaccination: Yes Physical Exam - Vital signs Vitals: Temp 98.1 F 08/18/19 00:11 Course - Vital Signs Vital signs: Temp Pulse Resp BP Pulse Ox 98.2 F 15 169/79 H 96 08/18/19 07:49 08/18/19 07:41 08/18/19 07:41 08/18/19 07:41 - Laboratory Result Diagrams: 08/18/19 00:15 08/18/19 00:15 Laboratory results interpreted by me: 08/18/19 08/18/19 08/18/19 00:15 00:15 02:20 RDW 17.1 H Lymph % (Auto) 10.9 L Seg Neutrophils % 81.8 H Sodium 134.5 L Glucose 117 H Total Bilirubin 1.9 H Ammonia < 8.7 L Urine Protein Urine Ketones Urine Urobilinogen 08/18/19 02:20 RDW Lymph % (Auto) Seg Neutrophils % Sodium Glucose Total Bilirubin Ammonia Urine Protein 30 H Urine Ketones 20 H Urine Urobilinogen 4.0 H Doctor's Discharge - Discharge Clinical Impression: Chest pain Qualifiers: Chest pain type: unspecified Qualified Code(s): R07.9 - Chest pain, unspecified Condition: Good Disposition: HOME, SELF-CARE Instructions: Alcohol Withdrawl ([facility]), Chest Pain of Unclear Cause ([facility]) Referrals: KWAME RICHARDSON MD [Primary Care Provider] - Follow up as needed
[2019-08-18 07:47] VITALS: BP 169/79
--- NOTE | 2019-08-18 09:25 | EKG REPORT ---
SEVERITY:- BORDERLINE ECG - ECTOPIC ATRIAL RHYTHM : Confirmed by: Anthony Stevenson MD 18-Aug-2019 09:25:06
--- NOTE | 2019-08-18 09:26 | EKG REPORT ---
SEVERITY:- NORMAL ECG - SINUS RHYTHM : Confirmed by: Anthony Stevenson MD 18-Aug-2019 09:25:32
== END 2019-08-18 07:49 | disposition home or self-care (01) ==
LOC: ER 00:11
DX: R07.89 Other chest pain (principal); R14.2 Eructation; R11.2 Nausea with vomiting, unspecified; R50.9 Fever, unspecified; R53.1 Weakness; R42 Dizziness and giddiness; M54.9 Dorsalgia, unspecified; M25.512 Pain in left shoulder; R51 Headache; R23.1 Pallor; I10 Essential (primary) hypertension; E11.9 Type 2 diabetes mellitus without complications; F17.210 Nicotine dependence, cigarettes, uncomplicated
CPT/HCPCS: 93005; 99285; 96361; 96374; 96375; 36415; 80307 ×2; 82140; 83690; 85025; 80053; 81001; 84484; 71045; 93010; J3490 ×5; J3360; J1885; J2270; J2405; J7030

== ENCOUNTER 2019-12-02 03:52 | Emergency (ER) | payer MEDICAID ==
[2019-12-02 04:35] LABS: ABSOLUTE BASOPHILS # (AUTO) 0.1 10^3/uL (0.0-0.2); ABSOLUTE EOSINOPHILS # (AUTO) 0.1 10^3/uL (0.0-0.6); ABSOLUTE MONOCYTES (AUTO) 0.6 10^3/uL (0.1-1.4); ABSOLUTE NEUT (AUTO) 4.2 10^3/uL (1.7-8.2); BASOPHILS % (AUTO) 1.3 % (0-2); EOSINOPHILS % (AUTO) 0.9 % (0-6); HEMATOCRIT 43.8 % (37.9-51.0); HEMOGLOBIN 15.2 g/dL (13.5-17.0); LYMPHOCYTES % (AUTO) 28.9 % (13-45); MEAN CORPUSCULAR HEMOGLOBIN 31.3 pg (27.0-33.4); MEAN CORPUSCULAR HGB CONC 34.8 g/dL (32.0-36.0); MEAN CORPUSCULAR VOLUME 90 fl (80-97); MONOCYTES % (AUTO) 8.1 % (3-13); PLATELET COUNT 149 10^3/uL (150-450); RED BLOOD COUNT 4.86 10^6/uL (4.35-5.55); RED CELL DISTRIBUTION WIDTH 13.8 % (11.5-14.0); SEGMENTED NEUTROPHILS % (AUTO) 60.8 % (42-78); TOTAL CELLS COUNTED % (AUTO) 100 %
[2019-12-02 04:54] LABS: ALBUMIN 4.9 g/dL (3.5-5.0); ALKALINE PHOSPHATASE 112 U/L (38-126); ANION GAP 12 (5-19); ASPARTATE AMINO TRANSFERASE 90 U/L (17-59); BILIRUBIN,DIRECT 0.3 mg/dL (0.0-0.4); BILIRUBIN,TOTAL 1.4 mg/dL (0.2-1.3); BLOOD UREA NITROGEN 9 mg/dL (7-20); CALCIUM 8.9 mg/dL (8.4-10.2); CARBON DIOXIDE 24 mmol/L (22-30); CHLORIDE 95 mmol/L (98-107); GLUCOSE 112 mg/dL (75-110)
[2019-12-02 05:02] LABS: CREATINE KINASE 1804 U/L (55-170)
[2019-12-02 05:06] LABS: TROPONIN I < 0.012 ng/mL
[2019-12-02] MEDS ORDERED: NORMAL SALINE 1000 ML 1,000 ML IV ONE ×2 (05:10→06:47)
--- NOTE | 2019-12-02 07:13 | EKG REPORT ---
SEVERITY:- NORMAL ECG - SINUS RHYTHM : Confirmed by: Charlie Odom 02-Dec-2019 07:12:36
[2019-12-02] MEDS ORDERED: KETOROLAC TROMETHAMINE INJ/PF 30 MG/1 ML SDV IV ONE (10:45)
--- NOTE | 2019-12-02 11:36 | RADIOLOGY REPORT (SQ) ---
EXAM DESCRIPTION: CHEST SINGLE VIEW IMAGES COMPLETED DATE/TIME: 12/02/2019 11:27 am REASON FOR STUDY: chest pain COMPARISON: 08/18/2019 EXAM PARAMETERS: NUMBER OF VIEWS: One view. TECHNIQUE: Single frontal radiographic view of the chest acquired. RADIATION DOSE: NA LIMITATIONS: None. FINDINGS: LUNGS AND PLEURA: No opacities, masses or pneumothorax. No pleural effusion. MEDIASTINUM AND HILAR STRUCTURES: No masses. Contour normal. HEART AND VASCULAR STRUCTURES: Heart normal in size. Normal vasculature. BONES: No acute findings. HARDWARE: None in the chest. OTHER: No other significant finding. IMPRESSION: NO ACUTE RADIOGRAPHIC FINDING IN THE CHEST. TECHNICAL DOCUMENTATION: JOB ID: [id number] [email or web address]- All Rights Reserved Reading location - IP/workstation name: [email or web address]
--- NOTE | 2019-12-02 11:55 | ER Document Report ---
Entered by ZEHRA YOO SCRIBE 12/02/19 0642 Acting as scribe for:SHELTON CUADRA MD ED General - General Chief Complaint: Chest Pain Stated Complaint: CHEST PAIN Time Seen by Provider: 12/02/19 06:15 Primary Care Provider: KWAME RICHARDSON MD [Primary Care Provider] - Follow up as needed Information source: Patient Notes: This 44 year old male patient presents to the emergency department today with complaints of chest pain. Patient states his chest pain is in the center of his chest and does not radiate. Patient reports lightheadedness and dizziness. Landon es any headache, syncope, abdominal pain, or problems with bowel movement. Patient states he smokes x1 ppd and drank a few shots of alcohol last night. Patient states he takes Paxil for his anxiety, which he reports has been bad lately. Patient reports history of DM, HTN, and is not on medication for either. 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 Denies history of heart attacks. TRAVEL OUTSIDE OF THE [place] IN LAST 30 DAYS: No - Related Data Allergies/Adverse Reactions: No Known Allergies Allergy (Verified 09/25/17 12:28) Home Medications: Paxil. Gabapentin Past Medical History - General Information source: Patient - Social History Smoking Status: Current Every Day Smoker Cigarette use (# per day): Yes - 1 ppd Chew tobacco use (# tins/day): No Family History: Reviewed & Not Pertinent - Past Medical History Cardiac Medical History: Reports: Hx Hypertension Denies: Hx Heart Attack Endocrine Medical History: Reports: Hx Diabetes Mellitus Type 2 Psychiatric Medical History: Reports: Hx Anxiety, Hx Depression Past Surgical History: Reports: Hx Tonsillectomy - Immunizations Immunizations up to date: Yes Hx Diphtheria, Pertussis, Tetanus Vaccination: Yes Review of Systems - Review of Systems Constitutional: No symptoms reported EENT: No symptoms reported Cardiovascular: See HPI, Chest pain, Dizziness, Lightheaded. denies: Syncope Respiratory: No symptoms reported Gastrointestinal: See HPI. denies: Abdominal pain Genitourinary: No symptoms reported Male Genitourinary: No symptoms reported Musculoskeletal: No symptoms reported Skin: No symptoms reported Hematologic/Lymphatic: No symptoms reported Neurological/Psychological: See HPI, Anxiety. denies: Headaches -: Yes All other systems reviewed and negative Physical Exam - Vital signs Vitals: Temp 98.3 F 12/02/19 03:52 - General General appearance: Appears well, Alert - HEENT Head: Normocephalic, Atraumatic Eyes: Normal Pupils: PERRL Notes: Nontender with palpation to the frontal and maxillary sinus. - Respiratory Respiratory status: No respiratory distress Breath sounds: Normal Notes: Tenderness with palpation to the anterior chest wall. - Cardiovascular Rhythm: Regular Heart sounds: Normal auscultation Murmur: No - Abdominal Inspection: Normal Distension: No distension Bowel sounds: Normal Tenderness: Nontender - Extremities General upper extremity: Normal inspection, Normal ROM. No: Edema General lower extremity: Normal inspection, Normal ROM. No: Edema - Neurological Neuro grossly intact: Yes Cognition: Normal Orientation: AAOx4 Speech: Normal Sensory: Normal - Psychological Associated symptoms: Normal affect, Normal mood - Skin Skin Temperature: Warm Skin Moisture: Dry Skin Color: Normal Course - Re-evaluation Re-evalutation: 12/02/19 10:43 Patient resting comfortably not showing any signs of distress. 12/02/19 10:48 Patient has reproducible chest wall pain when palpating the lower sternum. Patient is given IV ketorolac to help control that prior to discharge. - Vital Signs Vital signs: Temp Pulse Resp BP Pulse Ox 98.3 F 17 145/77 H 93 12/02/19 03:52 12/02/19 10:01 12/02/19 10:01 12/02/19 10:01 12/02/19 10:45 Vital signs stable no acute process - Laboratory Result Diagrams: 12/02/19 04:10 12/02/19 04:10 Laboratory results interpreted by me: 12/02/19 12/02/19 12/02/19 04:10 04:10 04:10 Plt Count 149 L Sodium 130.5 L Chloride 95 L Glucose 112 H Total Bilirubin 1.4 H AST 90 H Creatine Kinase 1804 H CK-MB (CK-2) 11.90 H - Diagnostic Test Radiology reviewed: Image reviewed, Reports reviewed Radiology results interpreted by me: 12/02/19 11:52 Chest X-Ray 12/02/19 10:49 IMPRESSION: NO ACUTE RADIOGRAPHIC FINDING IN THE CHEST. Chest x-ray shows no acute finding. No evidence for infiltrate rib fractures or or cardio problems noted. - EKG Interpretation by Me Additional EKG results interpreted by me: 12/02/19 10:47 Twelve-lead EKG shows normal sinus rhythm rate of [address]-T wave changes noted intervals within normal limits including CO interval QRS and QT T intervals. Normal axis no other acute findings. Discharge - Discharge Clinical Impression: Acute chest wall pain Condition: Stable Disposition: HOME, SELF-CARE Instructions: Anti-Inflammatory Medication ([facility]), Chest Wall Pain ([facility]) Prescriptions: Ibuprofen [Motrin 800 mg Tablet] 800 mg PO Q8H PRN #21 tablet PRN Reason: pain Referrals: KWAME RICHARDSON MD [Primary Care Provider] - Follow up as needed I personally performed the services described in the documentation, reviewed and edited the documentation which was dictated to the scribe in my presence, and it accurately records my words and actions.
[2019-12-02 12:56] VITALS: BP 146/98
== END 2019-12-02 12:56 | disposition home or self-care (01) ==
LOC: ER 03:52
DX: R07.89 Other chest pain (principal); R42 Dizziness and giddiness; I10 Essential (primary) hypertension; E11.9 Type 2 diabetes mellitus without complications; F17.210 Nicotine dependence, cigarettes, uncomplicated; F41.9 Anxiety disorder, unspecified; Z79.899 Other long term (current) drug therapy
CPT/HCPCS: 93005; 99285; 96361; 96374; 36415; 82553; 82962; 82550; 85025; 80053; 84484; 71045; 93010; J1885; J7030